=== PATIENT | female | born 1930 | race Caucasian/White ===

== ENCOUNTER → 2017-02-01 | Outpatient (CLI) | payer MEDICARE ==
--- NOTE | 2017-02-01 15:41 | MR ---
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 Fast brain protocol was utilized. FINDINGS: No evidence for acute infarction, hemorrhage, mass, mass effect, midline shift, herniation, effacemen t of basal cisterns, or extra-axial fluid collection. There is moderate generalized supratentorial volume loss. No hydrocephalus. T2/FLAIR weighted sequences show moderate patchy right white matter change in both cerebral hemispher es within the subcortical, deep white matter, and periventricular regions. Signal changes in extent t o the posterior right parieto-occipital junction possibly relating to encephalomalacia from prior ins ult. The fast brain protocol limits assessment of some of the intracranial flow voids, and particular, the infraglenoid ICAs. Midline structures demonstrate normal morphology. The craniocervical junction is normal. Mild mucosal thickening maxillary sinuses. Globes appear intact. IMPRESSION: 1. Moderate atrophy and moderate patchy changes of right white matter change. These changes are nonsp ecific but likely related to chronic small vessel ischemic disease. No acute intracranial abnormality seen. 2. Mild chronic maxillary sinus disease..
== END | disposition home or self-care (01) ==
LOC: RADMRIMAIN 14:32
PROVIDERS: ATTEND Psychiatry & Neurology Neurology
DX: G31.9 Degenerative disease of nervous system, unspecified (principal); R90.82 White matter disease, unspecified
CPT/HCPCS: 70551

== ENCOUNTER 2017-03-24 13:50 | Inpatient (IN) | payer MEDICARE ==
[2017-03-24] MEDS ORDERED: DIPHENOX-ATROP 2.5-0.025 MG 1 EACH TAB PO STA (15:05)
[2017-03-24] MEDS ORDERED: SODIUM CHLORIDE 0.9% 1,000 ML IV STA (15:05)
--- NOTE | 2017-03-24 15:11 | ED ---
General Adult HPI - General Chief complaint: Nausea/Vomiting/Diarrhea Stated complaint: Diarrhea Time Seen by Provider: 03/24/17 14:05 Source: patient, family, RN notes reviewed Mode of arrival: wheelchair Limitations: no limitations - History of Present Illness Initial comments: This is an 86-year-old female with past medical history significant for C. difficile 2 or 3. 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 Patient's caregiver states she started having a little bit of diarrhea last night and today she was having profuse diarrhea and generalized weakness. Patient's caregiver states that the smell the diarrhea swelling like when she had her C. diff in the past. Patient denies any abdominal pain. Patient denies any fever chills. Patient denies any other symptoms. She denies a headache she denies numbness weakness patient denies lightheadedness dizziness or near syncopal episode. Patient denies any chest pain difficulty breathing or shortness of breath. - Related Data Home Medications Medication Instructions Recorded Confirmed Ferrous Sulfate [Feosol] 325 mg PO BID 05/03/14 03/24/17 Cholecalciferol [Vitamin D3] 2,000 unit PO DAILY 05/04/14 03/24/17 Apixaban [Eliquis] 2.5 mg PO BID 03/21/15 03/24/17 Escitalopram [Lexapro] 10 mg PO DAILY 03/21/15 03/24/17 Metoprolol Tartrate 12.5 mg PO DAILY 03/21/15 03/24/17 Cranberry Fruit Extract [Cranberry] 200 mg PO DAILY 02/11/17 03/24/17 L.acidoph,Paracasei, B.lactis 1 cap PO DAILY 02/11/17 03/24/17 [Probiotic] Lisinopril [Prinivil] 20 mg PO BID 02/11/17 03/24/17 Previous Rx's Medication Instructions Recorded traZODone HCL [Desyrel] 100 mg PO HS #30 tab 03/25/15 Allergies Allergy/AdvReac Type Severity Reaction Status Date / Time codeine Allergy Unknown Verified 03/24/17 14:49 Review of Systems ROS Statement: Those systems with pertinent positive or pertinent negative responses have been documented in the HPI. ROS Other: All systems not noted in ROS Statement are negative. Past Medical History Past Medical History: Atrial Fibrillation, Dementia, Hypertension, Renal Disease Additional Past Medical History / Comment(s): Pt has had recurrent CDiff with fecal traansplant. IRON DEFICIENCY ANEMIA , nosebleeds, chronic renal failure, bilateral arm fractures, UTI-ECOLI(04-19-15) History of Any Multi-Drug Resistant Organisms: C-DIFF Date of last positivie culture/infection: 02/13/17 MDRO Source:: diarrhea Past Surgical History: No Surgical Hx Reported Additional Past Surgical History / Comment(s): previous nose surgery (skin graft from right thigh to nose r/t nosebleeds) Past Anesthesia/Blood Transfusion Reactions: No Reported Reaction Additional Past Anesthesia/Blood Transfusion Reaction / Comment(s): CLAUSTERPHOBIA Past Psychological History: No Psychological Hx Reported Smoking Status: Never smoker Past Alcohol Use History: None Reported Past Drug Use History: None Reported - Past Family History Son(s) History Unknown: Yes Family Medical History: Myocardial Infarction ([place]) Father Family Medical History: Myocardial Infarction ([place]) Additional Family Medical History / Comment(s): Father at age 96 yrs. Mother History Unknown: Yes Family Medical History: No Reported History Additional Family Medical History / Comment(s): Mother was healthy and when she was 71 yrs. old. General Exam - General Exam Comments Initial Comments: GENERAL: Patient is well-developed and well-nourished. Patient is nontoxic and well- hydrated and is in no acute distress. Patient seems very fatigued ENT: Neck is soft and supple. No significant lymphadenopathy is noted. Oropharynx is clear. Dry mucous membranes. Neck has full range of motion without eliciting any pain. EYES: The sclera were anicteric and conjunctiva were pink and moist. Extraocular movements were intact and pupils were equal round and reactive to light. Eyelids were unremarkable. PULMONARY: Unlabored respirations. Good breath sounds bilaterally. No audible rales rhonchi or wheezing was noted. CARDIOVASCULAR: There is a regular rate and rhythm without any murmurs gallops or rubs. ABDOMEN: Soft and nontender with normal bowel sounds. No palpable organomegaly was noted. There is no palpable pulsatile mass. SKIN: Skin is clear with no lesions or rashes and otherwise unremarkable. NEUROLOGIC: Patient is alert and oriented x3. Cranial nerves II through XII are grossly intact. Motor and sensory are also intact. Normal speech, volume and content. Symmetrical smile. MUSCULOSKELETAL: Normal extremities with adequate strength and full range of motion. No lower extremity swelling or edema. No calf tenderness. LYMPHATICS: No significant lymphadenopathy is noted PSYCHIATRIC: Normal psychiatric evaluation. Limitations: no limitations Course Vital Signs 03/24/17 14:04 Temperature 97.9 F Pulse Rate 77 Respiratory 16 Rate Blood Pressure 122/53 O2 Sat by Pulse 94 L Oximetry Medical Decision Making - Medical Decision Making Patient's stool came back C. diff positive I start the patient on vancomycin I admitted the patient. - Lab Data Lab Results 03/24/17 Range/Units 15:41 C. difficile (EIA) Intrp Positive A (Negative) Disposition Clinical Impression: Clostridium difficile infection Disposition: ADMITTED IP TO THIS HOSP Referrals: Manny Goldman MD [Primary Care Provider] - 1-2 days Time of Disposition: 16:39
[2017-03-24] MEDS ORDERED: SODIUM CHLORIDE 0.9% 1,000 ML IV ONE (16:42)
[2017-03-24 16:54] LABS: Anisocytosis Slight; Basophils # (A) 0.1 k/uL (0-0.2); Basophils % (A) 0 %; Eosinophils # (A) 0.1 k/uL (0-0.7); Eosinophils % (A) 1 %; HCT 34.2 % (34.0-46.0); HGB 10.2 gm/dL (11.4-16.0); Hypochromasia Marked; Lymphocytes # (A) 0.3 k/uL (1.0-4.8); Lymphocytes % (A) 2 %; MCH 27.5 pg (25.0-35.0); MCHC 29.8 g/dL (31.0-37.0); MCV 92.3 fL (80.0-100.0); Mean Platelet Volume 9.3; Monocytes # (A) 1.6 k/uL (0-1.0); Monocytes % (A) 9 %; Neutrophils # (A) 15.3 k/uL (1.3-7.7); Neutrophils % (A) 87 %; RDW 18.7 % (11.5-15.5); WBC 17.6 k/uL (3.8-10.6)
[2017-03-24 16:56] LABS: Platelet Count 166 k/uL (150-450)
[2017-03-24 17:29] LABS: Albumin 3.3 g/dL (3.5-5.0); Potassium 3.9 mmol/L (3.5-5.1); Total Bilirubin 0.4 mg/dL (0.2-1.3); Total Protein 6.4 g/dL (6.3-8.2)
[2017-03-24] MEDS ORDERED: CHERRY FLAVOR 60 ML BOTTLE PO PRN (17:46)
[2017-03-24] MEDS ORDERED: VANCOMYCIN ORAL SOLUTION 250 MG/5 ML BOTTLE PO SCH (18:00)
[2017-03-25] MEDS: ACETAMINOPHEN TAB 325 MG TAB PO PRN (00:21)
[2017-03-25] MEDS: LISINOPRIL 20 MG TAB PO SCH ×2 (09:48→21:14)
[2017-03-25] MEDS: METOPROLOL TARTRATE 12.5 MG TAB PO SCH (09:48)
[2017-03-25] MEDS: FERROUS SULFATE 325 MG TAB PO SCH ×2 (09:58→21:14)
[2017-03-25] MEDS: CHOLECALCIFEROL 1,000 UNIT TAB PO SCH (09:58)
[2017-03-25] MEDS: LACTOBACILLUS ACIDOPH & BULGAR 1 EACH PACKET PO SCH (09:58)
[2017-03-25] MEDS: APIXABAN 2.5 MG TABLET PO SCH ×2 (09:58→21:13)
[2017-03-25] MEDS: ESCITALOPRAM 10 MG TAB PO SCH (09:58)
--- NOTE | 2017-03-25 13:05 | P.HPIM ---
History of Present Illness H&P Date: 03/25/17 Elisa Li is an 86-year-old female with past medical history significant for C. difficile 2 or 3. 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 Patient's caregiver states she started having a little bit of diarrhea last night and today she was having profuse diarrhea and generalized weakness. Patient's caregiver states that the smell the diarrhea smelling like when she had her C. diff in the past. Patient denies any abdominal pain. Patient denies any fever chills. Patient denies any other symptoms. She denies a headache she denies numbness weakness patient denies lightheadedness dizziness or near syncopal episode. Patient denies any chest pain difficulty breathing or shortness of breath. White blood count was elevated at 17,000 Past Medical History Past Medical History: Atrial Fibrillation, Dementia, Hypertension, Renal Disease Additional Past Medical History / Comment(s): Pt has had recurrent CDiff with fecal traansplant. IRON DEFICIENCY ANEMIA , nosebleeds, chronic renal failure, bilateral arm fractures, UTI-ECOLI(04-19-15) History of Any Multi-Drug Resistant Organisms: C-DIFF Date of last positivie culture/infection: 02/13/17 MDRO Source:: diarrhea Past Surgical History: No Surgical Hx Reported Additional Past Surgical History / Comment(s): previous nose surgery (skin graft from right thigh to nose r/t nosebleeds) Past Anesthesia/Blood Transfusion Reactions: No Reported Reaction Additional Past Anesthesia/Blood Transfusion Reaction / Comment(s): CLAUSTERPHOBIA Past Psychological History: No Psychological Hx Reported Additional Psychological History / Comment(s): Pt's daughter lives with her. PT HAS DEMENTIA AND DAUGHTER STATES SHE GETS" SUNDOWNERS" AND CAN BECOME A BIT COMBATATIVE AT TIMES. Pt has shower chair, toilet riser and a walker. She has no home care services-declined. Smoking Status: Never smoker Past Alcohol Use History: None Reported Past Drug Use History: None Reported - Past Family History Son(s) History Unknown: Yes Family Medical History: Myocardial Infarction ([place]) Father Family Medical History: Myocardial Infarction ([place]) Additional Family Medical History / Comment(s): Father at age 96 yrs. Mother History Unknown: Yes Family Medical History: No Reported History Additional Family Medical History / Comment(s): Mother was healthy and when she was 71 yrs. old. Medications and Allergies Home Medications Medication Instructions Recorded Confirmed Type Ferrous Sulfate [Feosol] 325 mg PO BID 05/03/14 03/24/17 History Cholecalciferol [Vitamin D3] 2,000 unit PO DAILY 05/04/14 03/24/17 History Apixaban [Eliquis] 2.5 mg PO BID 03/21/15 03/24/17 History Escitalopram [Lexapro] 10 mg PO DAILY 03/21/15 03/24/17 History Metoprolol Tartrate 12.5 mg PO DAILY 03/21/15 03/24/17 History traZODone HCL [Desyrel] 100 mg PO HS #30 tab 03/25/15 03/24/17 Rx Cranberry Fruit Extract [Cranberry] 200 mg PO DAILY 02/11/17 03/24/17 History L.acidoph,Paracasei, B.lactis 1 cap PO DAILY 02/11/17 03/24/17 History [Probiotic] Lisinopril [Prinivil] 20 mg PO BID 02/11/17 03/24/17 History Allergies Allergy/AdvReac Type Severity Reaction Status Date / Time codeine Allergy Unknown Verified 03/24/17 14:49 Physical Exam Vitals: Vital Signs Temp Pulse Pulse Pulse Resp BP BP 03/25/17 07:00 98.7 F 68 16 03/25/17 03:56 03/25/17 03:10 99.8 F H 74 03/25/17 01:35 100.1 F H 70 03/24/17 23:00 100.1 F H 124 H 20 03/24/17 20:00 98.7 F 123 H 20 114/52 03/24/17 18:53 99.2 F 68 18 100/50 03/24/17 17:07 18 03/24/17 14:04 97.9 F 77 16 122/53 BP BP Pulse Ox 03/25/17 07:00 97/46 96 03/25/17 03:56 103/52 03/25/17 03:10 03/25/17 01:35 80/45 03/24/17 23:00 92/57 95 03/24/17 20:00 91 L 03/24/17 18:53 96 03/24/17 17:07 03/24/17 14:04 94 L Intake and Output 03/24/17 03/25/17 03/25/17 22:59 06:59 14:59 Intake Total 1000 0 Output Total 1 Balance 1000 -1 Intake: Amount of Fluid Infused ( 1000 ml) Oral 0 Output: Urine/Stool Mix 1 Other: Voiding Method Incontinent # Voids 1 # Bowel Movements 2 Weight 77.111 kg HEENT head normocephalic and atraumatic Neck is supple no JVD no goiter no lymphadenopathy Chest is clear to auscultation no crackles no wheezing Cardiac exam reveals regular heart sounds no gallops no murmurs Abdomen is soft nontender no organomegaly with normal bowel sounds Extremity exam reveals no edema no cyanosis or clubbing Neurological examination reveals no gross focal deficit patient is alert confused with baseline dementia Results CBC & Chem 7: 03/24/17 16:40 03/24/17 17:03 Labs: Abnormal Lab Results - Last 24 Hours (Table) 03/24/17 03/24/17 03/24/17 Range/Units 15:41 16:40 17:03 WBC 17.6 H (3.8-10.6) k/uL RBC 3.70 L (3.80-5.40) m/uL Hgb 10.2 L (11.4-16.0) gm/dL MCHC 29.8 L (31.0-37.0) g/dL RDW 18.7 H (11.5-15.5) % Neutrophils # 15.3 H (1.3-7.7) k/uL Lymphocytes # 0.3 L (1.0-4.8) k/uL Monocytes # 1.6 H (0-1.0) k/uL BUN 25 H (7-17) mg/dL Creatinine 1.63 H (0.52-1.04) mg/dL Glucose 107 H (74-99) mg/dL Albumin 3.3 L (3.5-5.0) g/dL Lipase 13 L (23-300) U/L C. difficile (EIA) Intrp Positive A (Negative) Microbiology - Last 24 Hours (Table) 03/24/17 15:41 Stool Culture - Preliminary Stool Thrombosis Risk Factor Assmnt - Choose All That Apply Any of the Below Risk Factors Present?: No Each Risk Factor Represents 3 Points: Age 75 years or older Thrombosis Risk Factor Assessment Total Risk Factor Score: 3 Thrombosis Risk Factor Assessment Level: Moderate Risk Assessment and Plan Plan: #1 Clostridium difficile colitis #2 dehydration with acute renal failure #3 underlying history of dementia #4 underlying history of chronic anemia due to diverticulosis #5 chronic atrial fibrillation #6 underlying history of hypertension At this time case was discussed was family in details, relief docking master at [facility] contacted Will start treatment with oral vancomycin 4 times daily for 2 weeks and then taper down vancomycin Infectious disease consultation has been requested
[2017-03-25 17:41] LABS: Amorphous Sediment,Urine Rare /hpf; Appearance,Urine Cloudy (Clear); Bacteria,Urine Many /hpf; Bilirubin,Urine Negative (Negative); Blood,Urine Small (Negative); Color,Urine Yellow; Glucose,Urine (UA) Negative (Negative); Hyaline Casts,Urine 44 /lpf (0-2); Ketones,Urine Negative (Negative); Leukocyte Esterase,Urine Moderate (Negative); Mucus,Urine Occasional /hpf; Nitrite,Urine Positive (Negative); Protein,Urine 1+ (Negative); RBC,Urine 9 /hpf (0-5); Specific Gravity,Urine 1.015 (1.001-1.035); Squamous Epithelial Cell,Urine 4 /hpf (0-4); Urobilinogen,Urine <2.0 mg/dL (<2.0); WBC,Urine 14 /hpf (0-5)
--- NOTE | 2017-03-25 19:44 | P.CONS ---
History of Present Illness - Reason for Consult Consult date: 03/25/17 - Chief Complaint diarrhea - History of Present Illness 86-year-old female patient of Dr. Goldman, is known to Dr. Moss to hospital with recurrence of diarrhea. Review of the data reveals that this pleasant but demented woman has had ongoing difficulties with diarrhea over this past year. It appears that she's had fecal transplantation performed in 2 events [facility].she is cared for by her children in their homes. Apparently she started developed profuse amount of diarrhea and became quite weak. Because the stool smell like C. diff she was brought to hospitaland testing did reveal evidence of ongoing evidence of C. diff. Because she was symptomatic she was admitted and has received fluids. Because of the concerns of ongoing infection the ID evaluation was requested. The patient is very pleasant but demented.14 since coming to Hospital to profuse nature of her diarrhea starting to improve. She is feeling slightly better. It is noted she does have significant leukocytosis but is not having high-grade fevers, chills or rigors. Patient does not relate any other symptoms at this time. Review of Systems ROS unobtainable: due to mental status Past Medical History Past Medical History: Atrial Fibrillation, Dementia, Hypertension, Renal Disease Additional Past Medical History / Comment(s): Pt has had recurrent CDiff with fecal traansplant. IRON DEFICIENCY ANEMIA , nosebleeds, chronic renal failure, bilateral arm fractures, UTI-ECOLI(04-19-15) History of Any Multi-Drug Resistant Organisms: C-DIFF Year Discovered:: 02/13/17 MDRO Source:: diarrhea Past Surgical History: No Surgical Hx Reported Additional Past Surgical History / Comment(s): previous nose surgery (skin graft from right thigh to nose r/t nosebleeds) Past Anesthesia/Blood Transfusion Reactions: No Reported Reaction Additional Past Anesthesia/Blood Transfusion Reaction / Comm: CLAUSTERPHOBIA Past Psychological History: No Psychological Hx Reported Additional Psychological History / Comment(s): Pt's daughter lives with her. PT HAS DEMENTIA AND DAUGHTER STATES SHE GETS" SUNDOWNERS" AND CAN BECOME A BIT COMBATATIVE AT TIMES. Pt has shower chair, toilet riser and a walker. She has no home care services-declined. Smoking Status: Never smoker Past Alcohol Use History: None Reported Past Drug Use History: None Reported - Past Family History Son(s) History Unknown: Yes Family Medical History: Myocardial Infarction (ND) Father Family Medical History: Myocardial Infarction (ND) Additional Family Medical History / Comment(s): Father at age 96 yrs. Mother History Unknown: Yes Family Medical History: No Reported History Additional Family Medical History / Comment(s): Mother was healthy and when she was 71 yrs. old. Medications and Allergies Home Medications and Allergies Comment(s): Current Medications Acetaminophen (Tylenol Tab) 650 mg PO Q6HR PRN PRN Reason: Fever and/ or Pain 1-5 Last Admin: 03/25/17 00:21 Dose: 650 mg Apixaban (Eliquis) 2.5 mg PO BID [facility] Last Admin: 03/25/17 09:58 Dose: 2.5 mg Hinson Syrup (Hinson Syrup) 5 ml PO Q6H PRN PRN Reason: FLAVORING Cholecalciferol (Vitamin D3) 2,000 unit PO DAILY [facility] Last Admin: 03/25/17 09:58 Dose: 2,000 unit Cholestyramine Resin (Questran) 4 gm PO BID@1000,1800 [facility] Escitalopram Oxalate (Lexapro) 10 mg PO DAILY [facility] Last Admin: 03/25/17 09:58 Dose: 10 mg Ferrous Sulfate (Feosol) 325 mg PO BID [facility] Last Admin: 03/25/17 09:58 Dose: 325 mg Lactobacillus Acidoph/Bulgaricus (Lactinex) 1 each PO DAILY [facility] Last Admin: 03/25/17 09:58 Dose: 1 each Lisinopril (Zestril) 20 mg PO BID [facility] Last Admin: 03/25/17 09:48 Dose: Not Given Metoprolol Tartrate (Lopressor) 12.5 mg PO DAILY [facility] Last Admin: 03/25/17 09:48 Dose: Not Given Trazodone HCl (Desyrel) 100 mg PO [facility] Home Medications Medication Instructions Recorded Confirmed Type Ferrous Sulfate [Feosol] 325 mg PO BID 05/03/14 03/24/17 History Cholecalciferol [Vitamin D3] 2,000 unit PO DAILY 05/04/14 03/24/17 History Apixaban [Eliquis] 2.5 mg PO BID 03/21/15 03/24/17 History Escitalopram [Lexapro] 10 mg PO DAILY 03/21/15 03/24/17 History Metoprolol Tartrate 12.5 mg PO DAILY 03/21/15 03/24/17 History traZODone HCL [Desyrel] 100 mg PO HS #30 tab 03/25/15 03/24/17 Rx Cranberry Fruit Extract [Cranberry] 200 mg PO DAILY 02/11/17 03/24/17 History L.acidoph,Paracasei, B.lactis 1 cap PO DAILY 02/11/17 03/24/17 History [Probiotic] Lisinopril [Prinivil] 20 mg PO BID 02/11/17 03/24/17 History Allergies Allergy/AdvReac Type Severity Reaction Status Date / Time codeine Allergy Unknown Verified 03/24/17 14:49 Physical Exam Vitals: Vital Signs Temp Pulse Pulse Resp BP BP BP 03/25/17 15:00 97.4 F L 65 16 110/51 03/25/17 07:00 98.7 F 68 16 97/46 03/25/17 03:56 103/52 03/25/17 03:10 99.8 F H 74 03/25/17 01:35 100.1 F H 70 80/45 03/24/17 23:00 100.1 F H 124 H 20 92/57 03/24/17 20:00 98.7 F 123 H 20 114/52 Pulse Ox 03/25/17 15:00 94 L 03/25/17 07:00 96 03/25/17 03:56 03/25/17 03:10 03/25/17 01:35 03/24/17 23:00 95 03/24/17 20:00 91 L Intake and Output 03/25/17 03/25/17 03/25/17 06:59 14:59 22:59 Intake Total 0 Output Total 1 Balance -1 Intake: Oral 0 Output: Urine/Stool Mix 1 Other: Voiding Method Incontinent Incontinent Incontinent # Voids 1 1 # Bowel Movements 3 1 Weight 77.111 kg Patient Weight 03/26/17 06:59 Weight 77.111 kg 86-year-old female pleasantly demented and is comfortable at this time. HEENT: Anicteric conjunctiva are pink and moist nasal mucosa grossly intact without significant lesions, there is no thrush. Neck: The neck is supple without significant lymphadenopathy or thyromegaly. Lungs: Good bilateral air entry without significant crackles or wheezing. There is no significant bronchial sounds. There is no egophony or dullness. Heart: Regular rate and rhythm with an audible S1-S2, no S3 no S4. There is no significant murmur click or rub, PMI was nondisplaced. Abdomen: Positive bowel sounds soft and has minimal bilateral lower quadrant tenderness without palpable masses or organomegaly. There was no guarding or rebound. Extremities: The upper extremities have excellent pulses they are symmetric, no significant petechiae or telangiectasia. No splinter hemorrhages were noted. The lower extremities are free from significant edema. The peripheral pulses were 2+ and symmetric. Neuro:awake and alert and able to follow simple commands, is not in distress Results CBC & Chem 7: 03/24/17 16:40 03/24/17 17:03 Labs: Abnormal Lab Results - Last 24 Hours (Table) 03/24/17 Range/Units 17:24 Urine Appearance Cloudy H (Clear) Urine Protein 1+ H (Negative) Urine Blood Small H (Negative) Urine Nitrite Positive H (Negative) Ur Leukocyte Esterase Moderate H (Negative) Urine RBC 9 H (0-5) /hpf Urine WBC 14 H (0-5) /hpf Amorphous Sediment Rare H (None) /hpf Urine Bacteria Many H (None) /hpf Hyaline Casts 44 H (0-2) /lpf Urine Mucus Occasional H (None) /hpf Microbiology - Last 24 Hours (Table) 03/24/17 15:41 Stool Culture - Preliminary Stool Laboratory Results WBC 17.6 k/uL (3.8-10.6) H 03/24/17 16:40 RBC 3.70 m/uL (3.80-5.40) L 03/24/17 16:40 Hgb 10.2 gm/dL (11.4-16.0) L 03/24/17 16:40 Hct 34.2 % (34.0-46.0) 03/24/17 16:40 MCV 92.3 fL (80.0-100.0) 03/24/17 16:40 MCH 27.5 pg (25.0-35.0) 03/24/17 16:40 MCHC 29.8 g/dL (31.0-37.0) L 03/24/17 16:40 RDW 18.7 % (11.5-15.5) H 03/24/17 16:40 Plt Count 166 k/uL (150-450) D 03/24/17 16:40 Neutrophils % 87 % 03/24/17 16:40 Lymphocytes % 2 % 03/24/17 16:40 Monocytes % 9 % 03/24/17 16:40 Eosinophils % 1 % 03/24/17 16:40 Basophils % 0 % 03/24/17 16:40 Neutrophils # 15.3 k/uL (1.3-7.7) H 03/24/17 16:40 Lymphocytes # 0.3 k/uL (1.0-4.8) L 03/24/17 16:40 Monocytes # 1.6 k/uL (0-1.0) H 03/24/17 16:40 Eosinophils # 0.1 k/uL (0-0.7) 03/24/17 16:40 Basophils # 0.1 k/uL (0-0.2) 03/24/17 16:40 Hypochromasia Marked 03/24/17 16:40 Anisocytosis Slight 03/24/17 16:40 Sodium 139 mmol/L (137-145) 03/24/17 17:03 Potassium 3.9 mmol/L (3.5-5.1) 03/24/17 17:03 Chloride 106 mmol/L (98-107) 03/24/17 17:03 Carbon Dioxide 24 mmol/L (22-30) 03/24/17 17:03 Anion Gap 9 mmol/L 03/24/17 17:03 BUN 25 mg/dL (7-17) H 03/24/17 17:03 Creatinine 1.63 mg/dL (0.52-1.04) H 03/24/17 17:03 Est GFR (MDRD) Af Amer 36 (>60 ml/min/1.73 sqM) 03/24/17 17:03 Est GFR (MDRD) Non-Af 30 (>60 ml/min/1.73 sqM) 03/24/17 17:03 Glucose 107 mg/dL (74-99) H 03/24/17 17:03 Plasma Lactic Acid Agustin 0.9 mmol/L (0.7-2.0) 03/25/17 01:20 Calcium 9.0 mg/dL (8.4-10.2) 03/24/17 17:03 Total Bilirubin 0.4 mg/dL (0.2-1.3) 03/24/17 17:03 AST 24 U/L (14-36) 03/24/17 17:03 ALT 30 U/L (9-52) 03/24/17 17:03 Alkaline Phosphatase 83 U/L (38-126) 03/24/17 17:03 Total Protein 6.4 g/dL (6.3-8.2) 03/24/17 17:03 Albumin 3.3 g/dL (3.5-5.0) L 03/24/17 17:03 Amylase 40 U/L (30-110) 03/24/17 17:03 Lipase 13 U/L (23-300) L 03/24/17 17:03 Urine Color Yellow 03/24/17 17:24 Urine Appearance Cloudy (Clear) H 03/24/17 17:24 Urine pH 5.0 (5.0-8.0) 03/24/17 17:24 Ur Specific [place] 1.015 (1.001-1.035) 03/24/17 17:24 Urine Protein 1+ (Negative) H 03/24/17 17:24 Urine Glucose (UA) Negative (Negative) 03/24/17 17:24 Urine Ketones Negative (Negative) 03/24/17 17:24 Urine Blood Small (Negative) H 03/24/17 17:24 Urine Nitrite Positive (Negative) H 03/24/17 17:24 Urine Bilirubin Negative (Negative) 03/24/17 17:24 Urine Urobilinogen <2.0 mg/dL (<2.0) 03/24/17 17:24 Ur Leukocyte Esterase Moderate (Negative) H 03/24/17 17:24 Urine RBC 9 /hpf (0-5) H 03/24/17 17:24 Urine WBC 14 /hpf (0-5) H 03/24/17 17:24 Ur Squamous Epith Cells 4 /hpf (0-4) 03/24/17 17:24 Amorphous Sediment Rare /hpf (None) H 03/24/17 17:24 Urine Bacteria Many /hpf (None) H 03/24/17 17:24 Hyaline Casts 44 /lpf (0-2) H 03/24/17 17:24 Urine Mucus Occasional /hpf (None) H 03/24/17 17:24 C. difficile (EIA) Intrp Positive (Negative) A 03/24/17 15:41 Microbiology 03/24/17 15:41 Stool Stool Culture - Preliminary Assessment and Plan (1) Clostridium difficile infection Narrative/Plan: 86-year-old female who has a history of dementia is developed recurrence of C. diff colitis. At home was having profound amounts of diarrhea resulting in weakness, dehydration and leukocytosis. Feeling somewhat better today. The nursing staff are relating to one loose stool only so far today. There is significant concerns from the family about ongoing treatment of her disease state. At this time since she's had fecal transplantation with attempts to monitor her off of any type of antibiotic therapy to see with supportive care if she cannot have improvement. Probiotic therapy is given no and also adding cholestyramine since this is a toxin binder and may help also improve the volume of her stool. [place] stool volume reduce his dehydration and improve his functional status. Her abdomen is soft without much tenderness does not have an acute abdomen. She does not have raheem sepsis at this time.leukocytosis is due to the acute illness and should be monitored and would expect it to rapidly improve.if there is any further abdominal discomforts a plain film of the abdomen will be helpful it is the goal at this time would be the avoidance of antibiotic therapy of any type, with supportive care she may be able to recover from the flare of C. diff. Current Visit: Yes Status: Acute Code(s): B96.89 - OTH BACTERIAL AGENTS THE CAUSE [facility]EASES [facility] SNOMED Code(s): 513542707 (2) Dementia Current Visit: Yes Status: Acute Code(s): F03.90 - UNSPECIFIED DEMENTIA WITHOUT BEHAVIORAL DISTURBANCE SNOMED Code(s): 76568675 (3) Leukocytosis Current Visit: Yes Status: Acute Code(s): D72.829 - ELEVATED WHITE BLOOD CELL COUNT, UNSPECIFIED SNOMED Code(s): 941303762
[2017-03-25] MEDS: CHOLESTYRAMINE (WITH SUGAR) 4 GM PACKET PO SCH (21:13)
[2017-03-25] MEDS: traZODone HCL 100 MG TAB PO SCH (21:14)
[2017-03-26 07:49] LABS: Anisocytosis Slight; Basophils % (A) 0 %; Eosinophils # (A) 0.1 k/uL (0-0.7); Eosinophils % (A) 2 %; HCT 28.1 % (34.0-46.0); Hypochromasia Marked; Lymphocytes # (A) 0.4 k/uL (1.0-4.8); Lymphocytes % (A) 5 %; MCH 27.3 pg (25.0-35.0); MCHC 29.4 g/dL (31.0-37.0); Mean Platelet Volume 7.3; Monocytes # (A) 0.8 k/uL (0-1.0); Monocytes % (A) 11 %; Neutrophils # (A) 5.7 k/uL (1.3-7.7); Neutrophils % (A) 78 %; Platelet Count 217 k/uL (150-450); RBC 3.02 m/uL (3.80-5.40); RDW 16.3 % (11.5-15.5); WBC 7.3 k/uL (3.8-10.6)
[2017-03-26 07:56] LABS: HGB 8.3 gm/dL (11.4-16.0)
[2017-03-26 07:58] LABS: ALT 33 U/L (9-52); AST 23 U/L (14-36); Albumin 2.4 g/dL (3.5-5.0); Alkaline Phosphatase 69 U/L (38-126); Anion Gap 8 mmol/L; Blood Urea Nitrogen 33 mg/dL (7-17); Calcium 8.1 mg/dL (8.4-10.2); Carbon Dioxide 22 mmol/L (22-30); Chloride 110 mmol/L (98-107); Glucose 96 mg/dL (74-99); Sodium 140 mmol/L (137-145); Total Bilirubin <0.1 mg/dL (0.2-1.3); Total Protein 4.8 g/dL (6.3-8.2)
[2017-03-26 08:04] LABS: Potassium 2.8 mmol/L (3.5-5.1)
[2017-03-26] MEDS: ESCITALOPRAM 10 MG TAB PO SCH (08:17)
[2017-03-26] MEDS: APIXABAN 2.5 MG TABLET PO SCH ×2 (08:17→19:27)
[2017-03-26] MEDS: METOPROLOL TARTRATE 12.5 MG TAB PO SCH (08:17)
[2017-03-26] MEDS: FERROUS SULFATE 325 MG TAB PO SCH ×2 (08:17→19:27)
[2017-03-26] MEDS: LISINOPRIL 20 MG TAB PO SCH ×2 (08:17→19:27)
[2017-03-26] MEDS: LACTOBACILLUS ACIDOPH & BULGAR 1 EACH PACKET PO SCH (08:17)
[2017-03-26] MEDS: CHOLECALCIFEROL 1,000 UNIT TAB PO SCH (08:17)
[2017-03-26] MEDS ORDERED: Potassium Replacement Protocol 1 EACH MISC MISCELLANE PRN (10:33)
[2017-03-26] MEDS: CHOLESTYRAMINE (WITH SUGAR) 4 GM PACKET PO SCH ×2 (10:46→18:41)
[2017-03-26] MEDS: POTASSIUM CHLORIDE ER 20 MEQ TAB.ER PO SCH ×3 (11:30→13:07)
--- NOTE | 2017-03-26 14:55 | P.PN ---
Subjective Progress Note Date: 03/26/17 Elisa Li is an 86-year-old female with past medical history significant for C. difficile 2 or 3. 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 Patient's caregiver states she started having a little bit of diarrhea last night and today she was having profuse diarrhea and generalized weakness. Patient's caregiver states that the smell the diarrhea smelling like when she had her C. diff in the past. Patient denies any abdominal pain. Patient denies any fever chills. Patient denies any other symptoms. She denies a headache she denies numbness weakness patient denies lightheadedness dizziness or near syncopal episode. Patient denies any chest pain difficulty breathing or shortness of breath. White blood count was elevated at 17,000 on admission. On 03/26/2017 patient is feeling better she has mild abdominal discomfort she had 2 episodes of diarrhea today but stool is starting to get formed, white blood count is significantly down to 8000 patient is not receiving any antibiotics she was evaluated by Dr. Beck and his input was reviewed. Objective - Vital Signs Vital signs: Vital Signs Temp 97.0 F L 03/26/17 07:00 Pulse 64 03/26/17 07:00 Resp 16 03/26/17 07:00 BP 105/52 03/26/17 07:00 Pulse Ox 96 03/26/17 07:00 Intake & Output 03/25/17 03/26/17 03/26/17 18:59 06:59 18:59 Intake Total 300 Output Total 3 Balance 297 Weight 77.111 kg 77.111 kg Intake: Oral 300 Output: Urine/Stool Mix 3 Other: Voiding Method Incontinent Incontinent Incontinent # Voids 1 3 1 # Bowel Movements 1 2 1 - Exam HEENT head normocephalic and atraumatic Neck is supple no JVD no goiter no lymphadenopathy Chest is clear to auscultation no crackles no wheezing Cardiac exam reveals regular heart sounds no gallops no murmurs Abdomen is soft nontender no organomegaly with normal bowel sounds Extremity exam reveals no edema no cyanosis or clubbing Neurological examination reveals no gross focal deficit patient is alert confused with baseline dementia - Labs CBC & Chem 7: 03/26/17 07:14 03/26/17 07:14 Labs: Abnormal Lab Results - Last 24 Hours (Table) 03/24/17 03/26/1703/26/17 Range/Units 17:24 07:14 07:14 RBC 3.02 L (3.80-5.40) m/uL Hgb 8.3 L D (11.4-16.0) gm/dL Hct 28.1 L (34.0-46.0) % MCHC 29.4 L (31.0-37.0) g/dL RDW 16.3 H (11.5-15.5) % Lymphocytes # 0.4 L (1.0-4.8) k/uL Potassium 2.8 L* (3.5-5.1) mmol/L Chloride 110 H (98-107) mmol/L BUN 33 H (7-17) mg/dL Creatinine 1.60 H (0.52-1.04) mg/dL Calcium 8.1 L (8.4-10.2) mg/dL Total Bilirubin <0.1 L (0.2-1.3) mg/dL Total Protein 4.8 L (6.3-8.2) g/dL Albumin 2.4 L (3.5-5.0) g/dL Urine Appearance Cloudy H (Clear) Urine Protein 1+ H (Negative) Urine Blood Small H (Negative) Urine Nitrite Positive H (Negative) Ur Leukocyte Esterase Moderate H (Negative) Urine RBC 9 H (0-5) /hpf Urine WBC 14 H (0-5) /hpf Amorphous Sediment Rare H (None) /hpf Urine Bacteria Many H (None) /hpf Hyaline Casts 44 H (0-2) /lpf Urine Mucus Occasional H (None) /hpf Microbiology - Last 24 Hours (Table) 03/25/17 01:29 Blood Culture - Preliminary Blood No Growth after 24 hours 03/25/17 01:20 Blood Culture - Preliminary Blood No Growth after 24 hours Assessment and Plan Plan: #1 Clostridium difficile colitis #2 dehydration with acute renal failure #3 underlying history of dementia #4 underlying history of chronic anemia due to diverticulosis #5 chronic atrial fibrillation #6 underlying history of hypertension #7 hypokalemia correcting At this time case was discussed was family in details, sales operations director at [facility] contacted Infectious disease consultation has been requested, recommendation from Dr. Beck was to avoid antibiotics and treated symptomatically No vancomycin was started patient is improving will monitor closely
[2017-03-26] MEDS ORDERED: LOPERAMIDE 2 MG CAP PO ONE (15:02)
[2017-03-26] MEDS: traZODone HCL 100 MG TAB PO SCH (19:27)
--- NOTE | 2017-03-26 22:05 | P.PN ---
Subjective Progress Note Date: 03/26/17 Principal diagnosis: Diarrhea and dehydration 86-year-old female patient of Dr. Goldman, is known to Dr. Moss to hospital with recurrence of diarrhea. Review of the data reveals that this pleasant but demented woman has had ongoing difficulties with diarrhea over this past year. It appears that she's had fecal transplantation performed in 2 events [facility].she is cared for by her children in their homes. Apparently she started developed profuse amount of diarrhea and became quite weak. Because the stool smell like C. diff she was brought to hospitaland testing did reveal evidence of ongoing evidence of C. diff. Because she was symptomatic she was admitted and has received fluids. Because of the concerns of ongoing infection the ID evaluation was requested. The patient is very pleasant but demented.14 since coming to Hospital to profuse nature of her diarrhea starting to improve. She is feeling slightly better. It is noted she does have significant leukocytosis but is not having high- grade fevers, chills or rigors. Patient does not relate any other symptoms at this time. The case is discussed with her son and [id number]. Objective - Vital Signs Vital signs: Vital Signs Temp 97.4 F L 03/26/17 15:00 Pulse 61 03/26/17 15:00 Resp 16 03/26/17 15:00 BP 113/56 03/26/17 15:00 Pulse Ox 97 03/26/17 15:00 Intake & Output 03/26/17 03/26/17 03/27/17 06:59 18:59 06:59 Intake Total 300 Output Total 3 Balance 297 Weight 77.111 kg Intake: Oral 300 Output: Urine/Stool Mix 3 Other: Voiding Method Incontinent Incontinent # Voids 3 1 # Bowel Movements 2 1 - Exam 86-year-old female pleasantly demented and is comfortable at this time. HEENT: Anicteric conjunctiva are pink and moist nasal mucosa grossly intact without significant lesions, there is no thrush. Neck: The neck is supple without significant lymphadenopathy or thyromegaly. Lungs: Good bilateral air entry without significant crackles or wheezing. There is no significant bronchial sounds. There is no egophony or dullness. Heart: Regular rate and rhythm with an audible S1-S2, no S3 no S4. There is no significant murmur click or rub, PMI was nondisplaced. Abdomen: Positive bowel sounds soft and has minimal bilateral lower quadrant tenderness without palpable masses or organomegaly. There was no guarding or rebound. Extremities: The upper extremities have excellent pulses they are symmetric, no significant petechiae or telangiectasia. No splinter hemorrhages were noted. The lower extremities are free from significant edema. The peripheral pulses were 2+ and symmetric. Neuro:awake and alert and able to follow simple commands, is not in distress - Labs CBC & Chem 7: 03/26/17 07:14 03/26/17 07:14 Labs: Abnormal Lab Results - Last 24 Hours (Table) 03/26/17 03/26/17 Range/Units 07:14 07:14 RBC 3.02 L (3.80-5.40) m/uL Hgb 8.3 L D (11.4-16.0) gm/dL Hct 28.1 L (34.0-46.0) % MCHC 29.4 L (31.0-37.0) g/dL RDW 16.3 H (11.5-15.5) % Lymphocytes # 0.4 L (1.0-4.8) k/uL Potassium 2.8 L* (3.5-5.1) mmol/L Chloride 110 H (98-107) mmol/L BUN 33 H (7-17) mg/dL Creatinine 1.60 H (0.52-1.04) mg/dL Calcium 8.1 L (8.4-10.2) mg/dL Total Bilirubin <0.1 L (0.2-1.3) mg/dL Total Protein 4.8 L (6.3-8.2) g/dL Albumin 2.4 L (3.5-5.0) g/dL Microbiology - Last 24 Hours (Table) 03/24/17 15:41 Stool Culture - Preliminary Stool 03/25/17 01:29 Blood Culture - Preliminary Blood No Growth after 24 hours 03/25/17 01:20 Blood Culture - Preliminary Blood No Growth after 24 hours Laboratory Results WBC 7.3 k/uL (3.8-10.6) 03/26/17 07:14 RBC 3.02 m/uL (3.80-5.40) L 03/26/17 07:14 Hgb 8.3 gm/dL (11.4-16.0) L D 03/26/17 07:14 Hct 28.1 % (34.0-46.0) L 03/26/17 07:14 MCV 93.0 fL (80.0-100.0) 03/26/17 07:14 MCH 27.3 pg (25.0-35.0) 03/26/17 07:14 MCHC 29.4 g/dL (31.0-37.0) L 03/26/17 07:14 RDW 16.3 % (11.5-15.5) H 03/26/17 07:14 Plt Count 217 k/uL (150-450) 03/26/17 07:14 Neutrophils % 78 % 03/26/17 07:14 Lymphocytes % 5 % 03/26/17 07:14 Monocytes % 11 % 03/26/17 07:14 Eosinophils % 2 % 03/26/17 07:14 Basophils % 0 % 03/26/17 07:14 Neutrophils # 5.7 k/uL (1.3-7.7) 03/26/17 07:14 Lymphocytes # 0.4 k/uL (1.0-4.8) L 03/26/17 07:14 Monocytes # 0.8 k/uL (0-1.0) 03/26/17 07:14 Eosinophils # 0.1 k/uL (0-0.7) 03/26/17 07:14 Basophils # 0.0 k/uL (0-0.2) 03/26/17 07:14 Hypochromasia Marked 03/26/17 07:14 Anisocytosis Slight 03/26/17 07:14 Sodium 140 mmol/L (137-145) 03/26/17 07:14 Potassium 2.8 mmol/L (3.5-5.1) L* 03/26/17 07:14 Chloride 110 mmol/L (98-107) H 03/26/17 07:14 Carbon Dioxide 22 mmol/L (22-30) 03/26/17 07:14 Anion Gap 8 mmol/L 03/26/17 07:14 BUN 33 mg/dL (7-17) H 03/26/17 07:14 Creatinine 1.60 mg/dL (0.52-1.04) H 03/26/17 07:14 Est GFR (MDRD) Af Amer 37 (>60 ml/min/1.73 sqM) 03/26/17 07:14 Est GFR (MDRD) Non-Af 30 (>60 ml/min/1.73 sqM) 03/26/17 07:14 Glucose 96 mg/dL (74-99) 03/26/17 07:14 Plasma Lactic Acid Agustin 0.9 mmol/L (0.7-2.0) 03/25/17 01:20 Calcium 8.1 mg/dL (8.4-10.2) L 03/26/17 07:14 Magnesium 2.1 mg/dL (1.6-2.3) 03/26/17 07:14 Total Bilirubin <0.1 mg/dL (0.2-1.3) L 03/26/17 07:14 AST 23 U/L (14-36) 03/26/17 07:14 ALT 33 U/L (9-52) 03/26/17 07:14 Alkaline Phosphatase 69 U/L (38-126) 03/26/17 07:14 Total Protein 4.8 g/dL (6.3-8.2) L 03/26/17 07:14 Albumin 2.4 g/dL (3.5-5.0) L 03/26/17 07:14 Amylase 40 U/L (30-110) 03/24/17 17:03 Lipase 13 U/L (23-300) L 03/24/17 17:03 Urine Color Yellow 03/24/17 17:24 Urine Appearance Cloudy (Clear) H 03/24/17 17:24 Urine pH 5.0 (5.0-8.0) 03/24/17 17:24 Ur Specific Clarkson 1.015 (1.001-1.035) 03/24/17 17:24 Urine Protein 1+ (Negative) H 03/24/17 17:24 Urine Glucose (UA) Negative (Negative) 03/24/17 17:24 Urine Ketones Negative (Negative) 03/24/17 17:24 Urine Blood Small (Negative) H 03/24/17 17:24 Urine Nitrite Positive (Negative) H 03/24/17 17:24 Urine Bilirubin Negative (Negative) 03/24/17 17:24 Urine Urobilinogen <2.0 mg/dL (<2.0) 03/24/17 17:24 Ur Leukocyte Esterase Moderate (Negative) H 03/24/17 17:24 Urine RBC 9 /hpf (0-5) H 03/24/17 17:24 Urine WBC 14 /hpf (0-5) H 03/24/17 17:24 Ur Squamous Epith Cells 4 /hpf (0-4) 03/24/17 17:24 Amorphous Sediment Rare /hpf (None) H 03/24/17 17:24 Urine Bacteria Many /hpf (None) H 03/24/17 17:24 Hyaline Casts 44 /lpf (0-2) H 03/24/17 17:24 Urine Mucus Occasional /hpf (None) H 03/24/17 17:24 C. difficile (EIA) Intrp Positive (Negative) A 03/24/17 15:41 Microbiology 03/24/17 15:41 Stool Stool Culture - Preliminary 03/25/17 01:29 Blood Blood Culture - Preliminary No Growth after 24 hours 03/25/17 01:20 Blood Blood Culture - Preliminary No Growth after 24 hours Assessment and Plan (1) Clostridium difficile infection Narrative/Plan: 86-year-old female who has a history of dementia is developed recurrence of C. diff colitis. At home was having profound amounts of diarrhea resulting in weakness, dehydration and leukocytosis. Feeling somewhat better today. The nursing staff are relating to one loose stool only so far today. There is significant concerns from the family about ongoing treatment of her disease state. At this time since she's had fecal transplantation with attempts to monitor her off of any type of antibiotic therapy to see with supportive care if she cannot have improvement. Probiotic therapy is given no and also adding cholestyramine since this is a toxin binder and may help also improve the volume of her stool. Ridges stool volume reduce his dehydration and improve his functional status. Her abdomen is soft without much tenderness does not have an acute abdomen. She does not have raheem sepsis at this time.leukocytosis is due to the acute illness and should be monitored and would expect it to rapidly improve.if there is any further abdominal discomforts a plain film of the abdomen will be helpful it is the goal at this time would be the avoidance of antibiotic therapy of any type, with supportive care she may be able to recover from the flare of C. diff. Continue with probiotic therapy, cholestyramine, and a dose of Imodium to lower the volume of stool can help with her dehydration and hypokalemia. Potassium be rechecked in the morning. Current Visit: Yes Status: Acute Code(s): B96.89 - OTH BACTERIAL AGENTS THE CAUSE OF DISEASES [facility] SNOMED Code(s): 197676925 (2) Dementia Current Visit: Yes Status: Acute Code(s): F03.90 - UNSPECIFIED DEMENTIA WITHOUT BEHAVIORAL DISTURBANCE SNOMED Code(s): 98362007 (3) Leukocytosis Current Visit: Yes Status: Acute Code(s): D72.829 - ELEVATED WHITE BLOOD CELL COUNT, UNSPECIFIED SNOMED Code(s): 745146055
[2017-03-27 07:21] LABS: Anisocytosis Slight; Basophils % (A) 0 %; Eosinophils # (A) 0.1 k/uL (0-0.7); Eosinophils % (A) 2 %; HCT 29.3 % (34.0-46.0); HGB 8.9 gm/dL (11.4-16.0); Hypochromasia Marked; Lymphocytes # (A) 0.3 k/uL (1.0-4.8); Lymphocytes % (A) 4 %; MCH 27.2 pg (25.0-35.0); MCHC 30.4 g/dL (31.0-37.0); MCV 89.4 fL (80.0-100.0); Mean Platelet Volume 7.8; Monocytes % (A) 13 %; Neutrophils # (A) 5.9 k/uL (1.3-7.7); Neutrophils % (A) 79 %; Platelet Count 210 k/uL (150-450); RBC 3.28 m/uL (3.80-5.40); RDW 17.4 % (11.5-15.5); WBC 7.5 k/uL (3.8-10.6)
[2017-03-27] MEDS: FERROUS SULFATE 325 MG TAB PO SCH ×2 (07:55→20:54)
[2017-03-27] MEDS: CHOLECALCIFEROL 1,000 UNIT TAB PO SCH (07:55)
[2017-03-27] MEDS: METOPROLOL TARTRATE 12.5 MG TAB PO SCH (07:55)
[2017-03-27] MEDS: APIXABAN 2.5 MG TABLET PO SCH ×2 (07:55→20:54)
[2017-03-27] MEDS: LISINOPRIL 20 MG TAB PO SCH ×2 (07:55→20:54)
[2017-03-27] MEDS: ESCITALOPRAM 10 MG TAB PO SCH (07:55)
[2017-03-27] MEDS: LACTOBACILLUS ACIDOPH & BULGAR 1 EACH PACKET PO SCH (07:55)
[2017-03-27] MEDS: CHOLESTYRAMINE (WITH SUGAR) 4 GM PACKET PO SCH ×2 (07:56→17:29)
[2017-03-27 08:03] LABS: ALT 30 U/L (9-52); AST 21 U/L (14-36); Albumin 2.7 g/dL (3.5-5.0); Alkaline Phosphatase 82 U/L (38-126); Anion Gap 8 mmol/L; Blood Urea Nitrogen 28 mg/dL (7-17); Carbon Dioxide 22 mmol/L (22-30); Chloride 113 mmol/L (98-107); Glucose 105 mg/dL (74-99); Potassium 3.7 mmol/L (3.5-5.1); Sodium 143 mmol/L (137-145); Total Bilirubin <0.1 mg/dL (0.2-1.3); Total Protein 5.5 g/dL (6.3-8.2)
--- NOTE | 2017-03-27 11:32 | P.PN ---
Subjective Progress Note Date: 03/27/17 Elisa Li is an 86-year-old female with past medical history significant for C. difficile 2 or 3. 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 Patient's caregiver states she started having a little bit of diarrhea last night and today she was having profuse diarrhea and generalized weakness. Patient's caregiver states that the smell the diarrhea smelling like when she had her C. diff in the past. Patient denies any abdominal pain. Patient denies any fever chills. Patient denies any other symptoms. She denies a headache she denies numbness weakness patient denies lightheadedness dizziness or near syncopal episode. Patient denies any chest pain difficulty breathing or shortness of breath. White blood count was elevated at 17,000 on admission. On 03/26/2017 patient is feeling better she has mild abdominal discomfort she had 2 episodes of diarrhea today but stool is starting to get formed, white blood count is significantly down to 8000 patient is not receiving any antibiotics she was evaluated by Dr. Beck and his input was reviewed. On 03/27/2017 patient is alert confused in no apparent distress she is still having episodes of foul-smelling diarrhea otherwise no complaints, family is noticing worsening in confusion otherwise no change since yesterday. Objective - Vital Signs Vital signs: Vital Signs Temp 100 F H 03/27/17 07:00 Pulse 78 03/27/17 08:00 Resp 16 03/27/17 08:00 BP 115/56 03/27/17 07:00 Pulse Ox 99 03/27/17 07:00 Intake & Output 03/26/17 03/27/17 03/27/17 18:59 06:59 18:59 Weight 77.111 kg Other: Voiding Method Incontinent Incontinent Incontinent # Voids 1 2 # Bowel Movements 1 - Exam HEENT head normocephalic and atraumatic Neck is supple no JVD no goiter no lymphadenopathy Chest is clear to auscultation no crackles no wheezing Cardiac exam reveals regular heart sounds no gallops no murmurs Abdomen is soft nontender no organomegaly with normal bowel sounds Extremity exam reveals no edema no cyanosis or clubbing Neurological examination reveals no gross focal deficit patient is alert confused with baseline dementia - Labs CBC & Chem 7: 03/27/17 06:51 03/27/17 06:51 Labs: Abnormal Lab Results - Last 24 Hours (Table) 03/27/17 03/27/17 Range/Units 06:51 06:51 RBC 3.28 L (3.80-5.40) m/uL Hgb 8.9 L (11.4-16.0) gm/dL Hct 29.3 L (34.0-46.0) % MCHC 30.4 L (31.0-37.0) g/dL RDW 17.4 H (11.5-15.5) % Lymphocytes # 0.3 L (1.0-4.8) k/uL Chloride 113 H (98-107) mmol/L BUN 28 H (7-17) mg/dL Creatinine 1.30 H (0.52-1.04) mg/dL Glucose 105 H (74-99) mg/dL Total Bilirubin <0.1 L (0.2-1.3) mg/dL Total Protein 5.5 L (6.3-8.2) g/dL Albumin 2.7 L (3.5-5.0) g/dL Microbiology - Last 24 Hours (Table) 03/25/17 01:29 Blood Culture - Preliminary Blood No Growth after 48 hours 03/25/17 01:20 Blood Culture - Preliminary Blood No Growth after 48 hours 03/24/17 15:41 Stool Culture - Preliminary Stool Assessment and Plan Plan: #1 Clostridium difficile colitis #2 dehydration with acute renal failure #3 underlying history of dementia #4 underlying history of chronic anemia due to diverticulosis #5 chronic atrial fibrillation #6 underlying history of hypertension #7 hypokalemia correcting At this time case was discussed with family in details, profiling machine operator at [facility] contacted Infectious disease consultation has been requested, recommendation from Dr. Beck was to avoid antibiotics and treated symptomatically No vancomycin was started patient is improving will monitor closely
[2017-03-27] MEDS: traZODone HCL 100 MG TAB PO SCH (20:54)
[2017-03-27] MEDS: ACETAMINOPHEN TAB 325 MG TAB PO PRN (22:35)
[2017-03-28] MEDS: ESCITALOPRAM 10 MG TAB PO SCH (08:33)
[2017-03-28] MEDS: LACTOBACILLUS ACIDOPH & BULGAR 1 EACH PACKET PO SCH (08:33)
[2017-03-28] MEDS: METOPROLOL TARTRATE 12.5 MG TAB PO SCH (08:33)
[2017-03-28] MEDS: CHOLESTYRAMINE (WITH SUGAR) 4 GM PACKET PO SCH ×2 (08:33→17:22)
[2017-03-28] MEDS: APIXABAN 2.5 MG TABLET PO SCH ×2 (08:34→21:30)
[2017-03-28] MEDS: LISINOPRIL 20 MG TAB PO SCH ×2 (08:34→21:30)
[2017-03-28] MEDS: FERROUS SULFATE 325 MG TAB PO SCH ×2 (08:34→21:30)
[2017-03-28] MEDS: ACETAMINOPHEN TAB 325 MG TAB PO PRN ×3 (08:34→23:56)
[2017-03-28] MEDS: CHOLECALCIFEROL 1,000 UNIT TAB PO SCH (08:34)
[2017-03-28 08:42] LABS: Anisocytosis Slight; Basophils % (A) 0 %; Eosinophils % (A) 0 %; HCT 32.2 % (34.0-46.0); HGB 9.5 gm/dL (11.4-16.0); Hypochromasia Marked; Lymphocytes # (A) 0.3 k/uL (1.0-4.8); Lymphocytes % (A) 2 %; MCH 26.9 pg (25.0-35.0); MCHC 29.4 g/dL (31.0-37.0); MCV 91.4 fL (80.0-100.0); Mean Platelet Volume 8.3; Monocytes # (A) 1.4 k/uL (0-1.0); Monocytes % (A) 11 %; Neutrophils # (A) 10.3 k/uL (1.3-7.7); Neutrophils % (A) 84 %; Platelet Count 217 k/uL (150-450); RBC 3.53 m/uL (3.80-5.40); RDW 17.9 % (11.5-15.5); WBC 12.3 k/uL (3.8-10.6)
[2017-03-28 08:51] LABS: Albumin 2.9 g/dL (3.5-5.0); Calcium 8.8 mg/dL (8.4-10.2); Potassium 3.7 mmol/L (3.5-5.1); Total Bilirubin 0.3 mg/dL (0.2-1.3); Total Protein 5.7 g/dL (6.3-8.2)
--- NOTE | 2017-03-28 11:46 | P.PN ---
Subjective Progress Note Date: 03/28/17 Elisa Li is an 86-year-old female with past medical history significant for C. difficile 2 or 3. 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 Patient's caregiver states she started having a little bit of diarrhea last night and today she was having profuse diarrhea and generalized weakness. Patient's caregiver states that the smell the diarrhea smelling like when she had her C. diff in the past. Patient denies any abdominal pain. Patient denies any fever chills. Patient denies any other symptoms. She denies a headache she denies numbness weakness patient denies lightheadedness dizziness or near syncopal episode. Patient denies any chest pain difficulty breathing or shortness of breath. White blood count was elevated at 17,000 on admission. 03/28/2017 patient still having loose stools but not as frequent. Patient had a temp of 101.4 last night white count has jumped up to 12.3. Blood cultures and urine culture ordered. Nursing staff reporting when they try to stay straight cath patient for urine sample the extent lately entered the vaginal canal there was a pop that was heard and greenish fluid was expelled. Upon my exam patient was resting comfortably. No evidence of pain or distress. Discussed case with patient's daughter. She is concerned about her mother's confusion Objective - Vital Signs Vital signs: Vital Signs Temp 99.3 F 03/28/17 07:00 Pulse 131 H 03/28/17 07:00 Resp 18 03/28/17 07:00 BP 128/74 03/28/17 07:00 Pulse Ox 93 L 03/28/17 07:00 Intake & Output 03/27/17 03/28/17 03/28/17 18:59 06:59 18:59 Intake Total 480 Balance 480 Intake: Oral 480 Other: Voiding Method Incontinent # Voids 3 5 1 # Bowel Movements 1 5 1 - Exam Head normocephalic Neck supple Lungs clear to auscultation bilaterally no wheezing or crackles Heart regular rate and rhythm S1-S2, no rub or gallop Abdomen is soft nontender nondistended positive bowel sounds no hepatosplenomegaly Extremities no edema Neuro resting comfortably. No evidence of distress - Labs CBC & Chem 7: 03/28/17 07:37 03/28/17 07:37 Labs: Abnormal Lab Results - Last 24 Hours (Table) 03/27/17 03/28/17 03/28/17 Range/Units 23:59 07:37 07:37 WBC 12.3 H (3.8-10.6) k/uL RBC 3.53 L (3.80-5.40) m/uL Hgb 9.5 L (11.4-16.0) gm/dL Hct 32.2 L (34.0-46.0) % MCHC 29.4 L (31.0-37.0) g/dL RDW 17.9 H (11.5-15.5) % Neutrophils # 10.3 H (1.3-7.7) k/uL Lymphocytes # 0.3 L (1.0-4.8) k/uL Monocytes # 1.4 H (0-1.0) k/uL Chloride 111 H (98-107) mmol/L Carbon Dioxide 20 L (22-30) mmol/L BUN 19 H (7-17) mg/dL Creatinine 1.12 H (0.52-1.04) mg/dL Plasma Lactic Acid Agustin 0.6 L (0.7-2.0) mmol/L Total Protein 5.7 L (6.3-8.2) g/dL Albumin 2.9 L (3.5-5.0) g/dL Microbiology - Last 24 Hours (Table) 03/24/17 15:41 Stool Culture - Final Stool 03/25/17 01:29 Blood Culture - Preliminary Blood No Growth after 72 hours 03/25/17 01:20 Blood Culture - Preliminary Blood No Growth after 72 hours Assessment and Plan Assessment: #1 Clostridium difficile colitis: Patient has had history of fecal transplants. Dr. Beck is following. Reports to avoid antibiotics and treat symptomatically. Continue Questran and probiotics #2 dehydration with acute renal failure. Continue with IV fluids #3 underlying history of dementia #4 underlying history of chronic anemia due to diverticulosis #5 chronic atrial fibrillation. Continue Eliquis #6 underlying history of hypertension #7 hypokalemia correcting #8 fever with tachycardia and leukocytosis. Blood culture and urine culture ordered. Infectious disease was notified. Patient also noted to have some vaginal discharge I performed an examination of the patient and discussed their management with the physician Arbitrator. I have reviewed the Physician Arbitrator's notes and agree with the documented findings and plan of care
[2017-03-28 11:58] LABS: Appearance,Urine Cloudy (Clear); Bacteria,Urine Many /hpf; Bilirubin,Urine Negative (Negative); Blood,Urine Moderate (Negative); Color,Urine Yellow; Glucose,Urine (UA) Negative (Negative); Ketones,Urine Negative (Negative); Leukocyte Esterase,Urine Moderate (Negative); Mucus,Urine Many /hpf; Nitrite,Urine Positive (Negative); PH, Urine 5.5 (5.0-8.0); Protein,Urine 1+ (Negative); RBC,Urine 2 /hpf (0-5); Specific Gravity,Urine 1.017 (1.001-1.035); Squamous Epithelial Cell,Urine 2 /hpf (0-4); Urobilinogen,Urine <2.0 mg/dL (<2.0); WBC,Urine 23 /hpf (0-5)
[2017-03-28] MEDS: SODIUM CHLORIDE 0.9% 1,000 ML IV SCH (12:29)
--- NOTE | 2017-03-28 14:19 | CDI ---
Last Revision, February 2017 Documentation Clarification Form Date: 03/28/2017 1:56:00 PM From: Kenna Lane Admit Date: 03/24/2017 4:42:00 PM Patient Name: Elisa Li Visit Number: [id number] ATTENTION: The Clinical Documentation Specialists (CDI) and [facility] Coding Staff appreciate your assistance in clarifying documentation. Please respond to the clarification below the line at the bottom and electronically sign. The CDI & [facility] Coding staff will review the response and follow-up if needed. Please note: Queries are made part of the Legal Health Record. If you have any questions, please contact the author of this message via ITS. Dr. Manny Goldman and Sheron Shukla, Chronic Renal failure was documented in the in the H&P under past medical history. History/Risk Factors: a-fib, HTN, renal disease on admission: BUN 33, CR 1.60, GFR 30 Clinical Indicators: Curent BUN/Cr/GFR : BUN 19, CR 1.12, GFR 46 dehydration with acute renal failure in the H&P and progress notes Treatment: IVF: bolus x 1 In order to capture the severity of condition, please clarify if the condition signifies: Acute on chronic renal failure (please stage ckd) CKD Stage 3 GFR 30-59 CKD other Stage (please specify) CKD ruled out Other, please specify Unable to determine Please continue to document in your progress notes and discharge summary in order to capture severity of illness and risk of mortality. Include clinical findings that support your diagnosis. MTDD
[2017-03-28] MEDS: traZODone HCL 100 MG TAB PO SCH (21:30)
--- NOTE | 2017-03-28 23:19 | P.PN ---
Subjective Progress Note Date: 03/28/17 Principal diagnosis: Diarrhea and dehydration 86-year-old female patient of Dr. Goldman, is known to Dr. Moss to hospital with recurrence of diarrhea. Review of the data reveals that this pleasant but demented woman has had ongoing difficulties with diarrhea over this past year. It appears that she's had fecal transplantation performed in 2 events [facility].she is cared for by her children in their homes. Apparently she started developed profuse amount of diarrhea and became quite weak. Because the stool smell like C. diff she was brought to hospitaland testing did reveal evidence of ongoing evidence of C. diff. Because she was symptomatic she was admitted and has received fluids. Because of the concerns of ongoing infection the ID evaluation was requested. The patient is very pleasant but demented.14 since coming to Hospital to profuse nature of her diarrhea starting to improve. She is feeling slightly better. Patient was having some improvement but again had fever and some increased leukocytosis. Nursing staff related today is significant amount of purulent drainage from the vaginal vault when a Tsang catheter was placed. Severe hypokalemia has improved. With her fever her mentation has again worsened. Objective - Vital Signs Vital signs: Vital Signs Temp 99.8 F H 03/28/17 15:00 Pulse 66 03/28/17 15:00 Resp 18 03/28/17 15:00 BP 120/87 03/28/17 15:00 Pulse Ox 96 03/28/17 15:00 Intake & Output 03/28/17 03/28/17 03/29/17 06:59 18:59 06:59 Intake Total 960 Balance 960 Intake: Oral 960 Other: Voiding Method Diaper Incontinent # Voids 5 1 # Bowel Movements 5 2 - Exam 86-year-old female pleasantly demented and is comfortable at this time. HEENT: Anicteric conjunctiva are pink and moist nasal mucosa grossly intact without significant lesions, there is no thrush. Neck: The neck is supple without significant lymphadenopathy or thyromegaly. Lungs: Good bilateral air entry without significant crackles or wheezing. There is no significant bronchial sounds. There is no egophony or dullness. Heart: Regular rate and rhythm with an audible S1-S2, no S3 no S4. There is no significant murmur click or rub, PMI was nondisplaced. Abdomen: Positive bowel sounds soft and has minimal bilateral lower quadrant tenderness without palpable masses or organomegaly. There was no guarding or rebound. Extremities: The upper extremities have excellent pulses they are symmetric, no significant petechiae or telangiectasia. No splinter hemorrhages were noted. The lower extremities are free from significant edema. The peripheral pulses were 2+ and symmetric. Neuro: Arousable but confused but not in distress With the nurses present vaginal exam was performed with evidence of some purulent drainage which is swabbed and sent to the laboratory for culture. - Labs CBC & Chem 7: 03/28/17 07:37 03/28/17 07:37 Labs: Abnormal Lab Results - Last 24 Hours (Table) 03/27/17 03/28/17 03/28/17 Range/Units 23:59 07:37 07:37 WBC 12.3 H (3.8-10.6) k/uL RBC 3.53 L (3.80-5.40) m/uL Hgb 9.5 L (11.4-16.0) gm/dL Hct 32.2 L (34.0-46.0) % MCHC 29.4 L (31.0-37.0) g/dL RDW 17.9 H (11.5-15.5) % Neutrophils # 10.3 H (1.3-7.7) k/uL Lymphocytes # 0.3 L (1.0-4.8) k/uL Monocytes # 1.4 H (0-1.0) k/uL Chloride 111 H (98-107) mmol/L Carbon Dioxide 20 L (22-30) mmol/L BUN 19 H (7-17) mg/dL Creatinine 1.12 H (0.52-1.04) mg/dL Plasma Lactic Acid Agustin 0.6 L (0.7-2.0) mmol/L Total Protein 5.7 L (6.3-8.2) g/dL Albumin 2.9 L (3.5-5.0) g/dL Urine Appearance (Clear) Urine Protein (Negative) Urine Blood (Negative) Urine Nitrite (Negative) Ur Leukocyte Esterase (Negative) Urine WBC (0-5) /hpf Urine Bacteria (None) /hpf Urine Mucus (None) /hpf 03/28/17 Range/Units 11:30 WBC (3.8-10.6) k/uL RBC (3.80-5.40) m/uL Hgb (11.4-16.0) gm/dL Hct (34.0-46.0) % MCHC (31.0-37.0) g/dL RDW (11.5-15.5) % Neutrophils # (1.3-7.7) k/uL Lymphocytes # (1.0-4.8) k/uL Monocytes # (0-1.0) k/uL Chloride (98-107) mmol/L Carbon Dioxide (22-30) mmol/L BUN (7-17) mg/dL Creatinine (0.52-1.04) mg/dL Plasma Lactic Acid Agustin (0.7-2.0) mmol/L Total Protein (6.3-8.2) g/dL Albumin (3.5-5.0) g/dL Urine Appearance Cloudy H (Clear) Urine Protein 1+ H (Negative) Urine Blood Moderate H (Negative) Urine Nitrite Positive H (Negative) Ur Leukocyte Esterase Moderate H (Negative) Urine WBC 23 H (0-5) /hpf Urine Bacteria Many H (None) /hpf Urine Mucus Many H (None) /hpf Microbiology - Last 24 Hours (Table) 03/28/17 11:30 Urine Culture - Preliminary Urine,Catheterized 03/24/17 15:41 Stool Culture - Final Stool 03/25/17 01:29 Blood Culture - Preliminary Blood No Growth after 72 hours 03/25/17 01:20 Blood Culture - Preliminary Blood No Growth after 72 hours Assessment and Plan (1) Clostridium difficile infection Narrative/Plan: 86-year-old female who has a history of dementia is developed recurrence of C. diff colitis. At home was having profound amounts of diarrhea resulting in weakness, dehydration and leukocytosis. Feeling somewhat better today. The nursing staff are relating to one loose stool only so far today. There is significant concerns from the family about ongoing treatment of her disease state. At this time since she's had fecal transplantation with attempts to monitor her off of any type of antibiotic therapy to see with supportive care if she cannot have improvement. Probiotic therapy is given no and also adding cholestyramine since this is a toxin binder and may help also improve the volume of her stool. Ridges stool volume reduce his dehydration and improve his functional status. Her abdomen is soft without much tenderness does not have an acute abdomen. She does not have raheem sepsis at this time.leukocytosis is due to the acute illness and should be monitored and would expect it to rapidly improve.if there is any further abdominal discomforts a plain film of the abdomen will be helpful it is the goal at this time would be the avoidance of antibiotic therapy of any type, with supportive care she may be able to recover from the flare of C. diff. Continue with probiotic therapy, cholestyramine, and a dose of Imodium to lower the volume of stool can help with her dehydration and hypokalemia. Hypokalemia resolved Patient has had some further worsening. Fever was noted. Leukocytosis is increased. A urine specimen is sent to the laboratory which remains abnormal. However the time of the straight catheterization grossly purulent material came out of the vaginal vault with concerns of a bacterial vaginosis related to her diarrhea. Metronidazole was added and she'll monitored closely with concerns of any antibiotic therapy with her underlying C. diff. Further antibiotic may be required if she truly has a urinary tract infection. Current Visit: Yes Status: Acute Code(s): B96.89 - OTH BACTERIAL AGENTS THE CAUSE OF DISEASES CLASSD [facility] SNOMED Code(s): 830040468 (2) Dementia Current Visit: Yes Status: Acute Code(s): F03.90 - UNSPECIFIED DEMENTIA WITHOUT BEHAVIORAL DISTURBANCE SNOMED Code(s): 44962521 (3) Leukocytosis Current Visit: Yes Status: Acute Code(s): D72.829 - ELEVATED WHITE BLOOD CELL COUNT, UNSPECIFIED SNOMED Code(s): 293032090
[2017-03-28] MEDS: metroNIDAZOLE 500 MG TAB PO SCH (23:48)
[2017-03-29 08:29] LABS: Anisocytosis Slight; Basophils % (A) 0 %; Eosinophils # (A) 0.1 k/uL (0-0.7); Eosinophils % (A) 1 %; HCT 30.3 % (34.0-46.0); HGB 8.9 gm/dL (11.4-16.0); Hypochromasia Marked; Lymphocytes # (A) 0.3 k/uL (1.0-4.8); Lymphocytes % (A) 3 %; MCH 26.6 pg (25.0-35.0); MCHC 29.2 g/dL (31.0-37.0); Mean Platelet Volume 7.3; Monocytes % (A) 9 %; Neutrophils # (A) 9.5 k/uL (1.3-7.7); Neutrophils % (A) 85 %; Platelet Count 247 k/uL (150-450); RBC 3.33 m/uL (3.80-5.40); RDW 16.5 % (11.5-15.5); WBC 11.2 k/uL (3.8-10.6)
[2017-03-29 08:44] LABS: Albumin 2.6 g/dL (3.5-5.0); Calcium 8.8 mg/dL (8.4-10.2); Potassium 3.7 mmol/L (3.5-5.1); Total Bilirubin 0.2 mg/dL (0.2-1.3); Total Protein 5.3 g/dL (6.3-8.2)
[2017-03-29] MEDS: metroNIDAZOLE 500 MG TAB PO SCH ×3 (09:12→21:37)
[2017-03-29] MEDS: METOPROLOL TARTRATE 12.5 MG TAB PO SCH (09:12)
[2017-03-29] MEDS: CHOLECALCIFEROL 1,000 UNIT TAB PO SCH (09:12)
[2017-03-29] MEDS: CHOLESTYRAMINE (WITH SUGAR) 4 GM PACKET PO SCH ×2 (09:12→16:23)
[2017-03-29] MEDS: APIXABAN 2.5 MG TABLET PO SCH ×2 (09:12→21:37)
[2017-03-29] MEDS: LACTOBACILLUS ACIDOPH & BULGAR 1 EACH PACKET PO SCH (09:12)
[2017-03-29] MEDS: FERROUS SULFATE 325 MG TAB PO SCH ×2 (09:12→21:37)
[2017-03-29] MEDS: LISINOPRIL 20 MG TAB PO SCH ×2 (09:13→21:37)
[2017-03-29] MEDS: SODIUM CHLORIDE 0.9% 1,000 ML IV SCH (09:13)
[2017-03-29] MEDS: ESCITALOPRAM 10 MG TAB PO SCH (09:13)
--- NOTE | 2017-03-29 17:16 | P.PN ---
Subjective Elisa Li is an 86-year-old female with past medical history significant for C. difficile 2 or 3. 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 Patient's caregiver states she started having a little bit of diarrhea last night and today she was having profuse diarrhea and generalized weakness. Patient's caregiver states that the smell the diarrhea smelling like when she had her C. diff in the past. Patient denies any abdominal pain. Patient denies any fever chills. Patient denies any other symptoms. She denies a headache she denies numbness weakness patient denies lightheadedness dizziness or near syncopal episode. Patient denies any chest pain difficulty breathing or shortness of breath. White blood count was elevated at 17,000 on admission. On 03/26/2017 patient is feeling better she has mild abdominal discomfort she had 2 episodes of diarrhea today but stool is starting to get formed, white blood count is significantly down to 8000 patient is not receiving any antibiotics she was evaluated by Dr. Beck and his input was reviewed. On 03/27/2017 patient is alert confused in no apparent distress she is still having episodes of foul-smelling diarrhea otherwise no complaints, family is noticing worsening in confusion otherwise no change since yesterday. On 03/29/2017 patient is alert confused in no apparent distress diarrhea has improved, Flagyl was added due to copius greenish discharge from the vaginal vault. Objective - Vital Signs Vital signs: Vital Signs Temp 99 F 03/29/17 15:56 Pulse 50 L 03/29/17 15:56 Resp 19 03/29/17 15:56 BP 122/62 03/29/17 15:56 Pulse Ox 97 03/29/17 15:56 Intake & Output 03/28/17 03/29/17 03/29/17 18:59 06:59 18:59 Intake Total 960 800 200 Balance 960 800 200 Intake: Intake, IV Titration 800 Amount Sodium Chloride 0.9% 1, 800 000 ml @ 50 mls/hr IV . Q20H [facility] Rx#:[id number] Oral 960 200 Other: Voiding Method Diaper Diaper Bedside Commode Incontinent Incontinent # Voids 1 1 # Bowel Movements 2 3 3 - Exam HEENT head normocephalic and atraumatic Neck is supple no JVD no goiter no lymphadenopathy Chest is clear to auscultation no crackles no wheezing Cardiac exam reveals regular heart sounds no gallops no murmurs Abdomen is soft nontender no organomegaly with normal bowel sounds Extremity exam reveals no edema no cyanosis or clubbing Neurological examination reveals no gross focal deficit patient is alert confused with baseline dementia - Labs CBC & Chem 7: 03/29/17 07:45 03/29/17 07:45 Labs: Abnormal Lab Results - Last 24 Hours (Table) 03/29/17 03/29/17 Range/Units 07:45 07:45 WBC 11.2 H (3.8-10.6) k/uL RBC 3.33 L (3.80-5.40) m/uL Hgb 8.9 L (11.4-16.0) gm/dL Hct 30.3 L (34.0-46.0) % MCHC 29.2 L (31.0-37.0) g/dL RDW 16.5 H (11.5-15.5) % Neutrophils # 9.5 H (1.3-7.7) k/uL Lymphocytes # 0.3 L (1.0-4.8) k/uL Sodium 146 H (137-145) mmol/L Chloride 114 H (98-107) mmol/L BUN 25 H (7-17) mg/dL Creatinine 1.15 H (0.52-1.04) mg/dL Total Protein 5.3 L (6.3-8.2) g/dL Albumin 2.6 L (3.5-5.0) g/dL Microbiology - Last 24 Hours (Table) 03/28/17 11:30 Urine Culture - Final Urine,Catheterized 03/28/17 19:41 Gram Stain - Final Genital Genital Culture - Preliminary 03/25/17 01:29 Blood Culture - Preliminary Blood No Growth after 96 hours 03/25/17 01:20 Blood Culture - Preliminary Blood No Growth after 96 hours 03/27/17 23:59 Blood Culture - Preliminary Blood No Growth after 24 hours 03/27/17 23:59 Blood Culture - Preliminary Blood No Growth after 24 hours Assessment and Plan Plan: #1 Clostridium difficile colitis #2 dehydration with acute renal failure #3 underlying history of dementia #4 underlying history of chronic anemia due to diverticulosis #5 chronic atrial fibrillation #6 underlying history of hypertension #7 hypokalemia correcting #8 Flagyl was added to regimen due to greenish vaginal discharge At this time case was discussed with family in details, drapery and upholstery measurer at [facility] contacted Infectious disease consultation has been requested, recommendation from Dr. Beck was to avoid antibiotics and treated symptomatically No vancomycin was started patient is improving will monitor closely
[2017-03-29] MEDS: traZODone HCL 100 MG TAB PO SCH (21:37)
[2017-03-29] MEDS ORDERED: LOPERAMIDE 2 MG CAP PO STA (23:38)
--- NOTE | 2017-03-29 23:38 | P.PN ---
Subjective Progress Note Date: 03/29/17 Principal diagnosis: Diarrhea and dehydration 86-year-old female patient of Dr. Goldman, is known to Dr. Moss to hospital with recurrence of diarrhea. Review of the data reveals that this pleasant but demented woman has had ongoing difficulties with diarrhea over this past year. 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 Apparently she started developed profuse amount of diarrhea and became quite weak. Because the stool smell like C. diff she was brought to hospitaland testing did reveal evidence of ongoing evidence of C. diff. Because she was symptomatic she was admitted and has received fluids. Because of the concerns of ongoing infection the ID evaluation was requested. The patient is very pleasant but demented.14 since coming to Hospital to profuse nature of her diarrhea starting to improve. She is feeling slightly better. Patient was having some improvement but again had fever and some increased leukocytosis. Nursing staff related today is significant amount of purulent drainage from the vaginal vault when a Tsang catheter was placed. Severe hypokalemia has improved. With her fever her mentation has again worsened. The patient has had several bouts of diarrhea today. Mentation remains poor. Unclear the vaginal drainage is improved with the start of the metronidazole. Has not yet improved diarrhea. Objective - Vital Signs Vital signs: Vital Signs Temp 99 F 03/29/17 15:56 Pulse 50 L 03/29/17 15:56 Resp 19 03/29/17 22:11 BP 122/62 03/29/17 15:56 Pulse Ox 97 03/29/17 15:56 Intake & Output 03/29/17 03/29/17 03/30/17 06:59 18:59 06:59 Intake Total 800 200 Balance 800 200 Weight 77.111 kg Intake: Intake, IV Titration 800 Amount Sodium Chloride 0.9% 1, 800 000 ml @ 50 mls/hr IV . Q20H [facility] Rx#:[id number] Oral 200 Other: Voiding Method Diaper Bedside Commode Bedside Commode Incontinent Diaper Incontinent # Voids 2 # Bowel Movements 3 2 - Exam 86-year-old female pleasantly demented and is comfortable at this time. HEENT: Anicteric conjunctiva are pink and moist nasal mucosa grossly intact without significant lesions, there is no thrush. Neck: The neck is supple without significant lymphadenopathy or thyromegaly. Lungs: Good bilateral air entry without significant crackles or wheezing. There is no significant bronchial sounds. There is no egophony or dullness. Heart: Regular rate and rhythm with an audible S1-S2, no S3 no S4. There is no significant murmur click or rub, PMI was nondisplaced. Abdomen: Positive bowel sounds soft and has minimal bilateral lower quadrant tenderness without palpable masses or organomegaly. There was no guarding or rebound. Extremities: The upper extremities have excellent pulses they are symmetric, no significant petechiae or telangiectasia. No splinter hemorrhages were noted. The lower extremities are free from significant edema. The peripheral pulses were 2+ and symmetric. Neuro: Arousable but confused but not in distress - Labs CBC & Chem 7: 03/29/17 07:45 03/29/17 07:45 Labs: Abnormal Lab Results - Last 24 Hours (Table) 03/29/17 03/29/17 Range/Units 07:45 07:45 WBC 11.2 H (3.8-10.6) k/uL RBC 3.33 L (3.80-5.40) m/uL Hgb 8.9 L (11.4-16.0) gm/dL Hct 30.3 L (34.0-46.0) % MCHC 29.2 L (31.0-37.0) g/dL RDW 16.5 H (11.5-15.5) % Neutrophils # 9.5 H (1.3-7.7) k/uL Lymphocytes # 0.3 L (1.0-4.8) k/uL Sodium 146 H (137-145) mmol/L Chloride 114 H (98-107) mmol/L BUN 25 H (7-17) mg/dL Creatinine 1.15 H (0.52-1.04) mg/dL Total Protein 5.3 L (6.3-8.2) g/dL Albumin 2.6 L (3.5-5.0) g/dL Microbiology - Last 24 Hours (Table) 03/28/17 11:30 Urine Culture - Final Urine,Catheterized 03/28/17 19:41 Gram Stain - Final Genital Genital Culture - Preliminary 12/30/17 01:29 Blood Culture - Preliminary Blood No Growth after 96 hours 03/25/17 01:20 Blood Culture - Preliminary Blood No Growth after 96 hours 03/27/17 23:59 Blood Culture - Preliminary Blood No Growth after 24 hours 03/27/17 23:59 Blood Culture - Preliminary Blood No Growth after 24 hours Laboratory Results WBC 11.2 k/uL (3.8-10.6) H 03/29/17 07:45 RBC 3.33 m/uL (3.80-5.40) L 03/29/17 07:45 Hgb 8.9 gm/dL (11.4-16.0) L 03/29/17 07:45 Hct 30.3 % (34.0-46.0) L 03/29/17 07:45 MCV 91.0 fL (80.0-100.0) 03/29/17 07:45 MCH 26.6 pg (25.0-35.0) 03/29/17 07:45 MCHC 29.2 g/dL (31.0-37.0) L 03/29/17 07:45 RDW 16.5 % (11.5-15.5) H 03/29/17 07:45 Plt Count 247 k/uL (150-450) 03/29/17 07:45 Neutrophils % 85 % 03/29/17 07:45 Lymphocytes % 3 % 03/29/17 07:45 Monocytes % 9 % 03/29/17 07:45 Eosinophils % 1 % 03/29/17 07:45 Basophils % 0 % 03/29/17 07:45 Neutrophils # 9.5 k/uL (1.3-7.7) H 03/29/17 07:45 Lymphocytes # 0.3 k/uL (1.0-4.8) L 03/29/17 07:45 Monocytes # 1.0 k/uL (0-1.0) 03/29/17 07:45 Eosinophils # 0.1 k/uL (0-0.7) 03/29/17 07:45 Basophils # 0.0 k/uL (0-0.2) 03/29/17 07:45 Hypochromasia Marked 03/29/17 07:45 Anisocytosis Slight 03/29/17 07:45 Sodium 146 mmol/L (137-145) H 03/29/17 07:45 Potassium 3.7 mmol/L (3.5-5.1) 03/29/17 07:45 Chloride 114 mmol/L (98-107) H 03/29/17 07:45 Carbon Dioxide 22 mmol/L (22-30) 03/29/17 07:45 Anion Gap 10 mmol/L 03/29/17 07:45 BUN 25 mg/dL (7-17) H 03/29/17 07:45 Creatinine 1.15 mg/dL (0.52-1.04) H 03/29/17 07:45 Est GFR (MDRD) Af Amer 54 (>60 ml/min/1.73 sqM) 03/29/17 07:45 Est GFR (MDRD) Non-Af 45 (>60 ml/min/1.73 sqM) 03/29/17 07:45 Glucose 96 mg/dL (74-99) 03/29/17 07:45 Plasma Lactic Acid Agustin 0.6 mmol/L (0.7-2.0) L 03/27/17 23:59 Calcium 8.8 mg/dL (8.4-10.2) 03/29/17 07:45 Magnesium 2.1 mg/dL (1.6-2.3) 03/26/17 07:14 Total Bilirubin 0.2 mg/dL (0.2-1.3) 03/29/17 07:45 AST 18 U/L (14-36) 03/29/17 07:45 ALT 37 U/L (9-52) 03/29/17 07:45 Alkaline Phosphatase 79 U/L (38-126) 03/29/17 07:45 Total Protein 5.3 g/dL (6.3-8.2) L 03/29/17 07:45 Albumin 2.6 g/dL (3.5-5.0) L 03/29/17 07:45 Amylase 40 U/L (30-110) 03/24/17 17:03 Lipase 13 U/L (23-300) L 03/24/17 17:03 Urine Color Yellow 03/28/17 11:30 Urine Appearance Cloudy (Clear) H 03/28/17 11:30 Urine pH 5.5 (5.0-8.0) 03/28/17 11:30 Ur Specific [place] 1.017 (1.001-1.035) 03/28/17 11:30 Urine Protein 1+ (Negative) H 03/28/17 11:30 Urine Glucose (UA) Negative (Negative) 03/28/17 11:30 Urine Ketones Negative (Negative) 03/28/17 11:30 Urine Blood Moderate (Negative) H 03/28/17 11:30 Urine Nitrite Positive (Negative) H 03/28/17 11:30 Urine Bilirubin Negative (Negative) 03/28/17 11:30 Urine Urobilinogen <2.0 mg/dL (<2.0) 03/28/17 11:30 Ur Leukocyte Esterase Moderate (Negative) H 03/28/17 11:30 Urine RBC 2 /hpf (0-5) 03/28/17 11:30 Urine WBC 23 /hpf (0-5) H 03/28/17 11:30 Ur Squamous Epith Cells 2 /hpf (0-4) 03/28/17 11:30 Amorphous Sediment Rare /hpf (None) H 03/24/17 17:24 Urine Bacteria Many /hpf (None) H 03/28/17 11:30 Hyaline Casts 44 /lpf (0-2) H 03/24/17 17:24 Urine Mucus Many /hpf (None) H 03/28/17 11:30 C. difficile (EIA) Intrp Positive (Negative) A 03/24/17 15:41 Microbiology 03/28/17 11:30 Urine,Catheterized Urine Culture - Final 03/28/17 19:41 Genital Gram Stain - Final 03/28/17 19:41 Genital Genital Culture - Preliminary 03/25/17 01:29 Blood Blood Culture - Preliminary No Growth after 96 hours 03/25/17 01:20 Blood Blood Culture - Preliminary No Growth after 96 hours 03/27/17 23:59 Blood Blood Culture - Preliminary No Growth after 24 hours 03/27/17 23:59 Blood Blood Culture - Preliminary No Growth after 24 hours 03/24/17 15:41 Stool Stool Culture - Final Assessment and Plan (1) Clostridium difficile infection Narrative/Plan: 86-year-old female who has a history of dementia is developed recurrence of C. diff colitis. At home was having profound amounts of diarrhea resulting in weakness, dehydration and leukocytosis. Feeling somewhat better today. The nursing staff are relating to one loose stool only so far today. There is significant concerns from the family about ongoing treatment of her disease state. At this time since she's had fecal transplantation with attempts to monitor her off of any type of antibiotic therapy to see with supportive care if she cannot have improvement. Probiotic therapy is given no and also adding cholestyramine since this is a toxin binder and may help also improve the volume of her stool. [place] stool volume reduce his dehydration and improve his functional status. Her abdomen is soft without much tenderness does not have an acute abdomen. She does not have raheem sepsis at this time.leukocytosis is due to the acute illness and should be monitored and would expect it to rapidly improve.i it is the goal at this time would be the avoidance of antibiotic therapy of any type, with supportive care she may be able to recover from the flare of C. diff. Continue with probiotic therapy, cholestyramine, and a dose of Imodium to lower the volume of stool can help with her dehydration and hypokalemia. Hypokalemia resolved Patient has had some further worsening. Fever was noted. Leukocytosis is increased. A urine specimen is sent to the laboratory which remains abnormal. However the time of the straight catheterization grossly purulent material came out of the vaginal vault with concerns of a bacterial vaginosis related to her diarrhea. Metronidazole was added and she'll monitored closely with concerns of any antibiotic therapy with her underlying C. diff. Further antibiotic may be required if she truly has a urinary tract infection.Urine culture was grossly contaminated. Current Visit: Yes Status: Acute Code(s): B96.89 - OTH BACTERIAL AGENTS THE CAUSE OF DISEASES CLASSD [facility] SNOMED Code(s): 658490027 (2) Dementia Current Visit: Yes Status: Acute Code(s): F03.90 - UNSPECIFIED DEMENTIA WITHOUT BEHAVIORAL DISTURBANCE SNOMED Code(s): 00327907 (3) Leukocytosis Current Visit: Yes Status: Acute Code(s): D72.829 - ELEVATED WHITE BLOOD CELL COUNT, UNSPECIFIED SNOMED Code(s): 132654958
[2017-03-30] MEDS: SODIUM CHLORIDE 0.9% 1,000 ML IV SCH ×2 (03:41→23:25)
[2017-03-30] MEDS: LISINOPRIL 20 MG TAB PO SCH ×2 (08:43→21:02)
[2017-03-30] MEDS: APIXABAN 2.5 MG TABLET PO SCH ×2 (08:43→21:02)
[2017-03-30] MEDS: ESCITALOPRAM 10 MG TAB PO SCH (08:43)
[2017-03-30] MEDS: metroNIDAZOLE 500 MG TAB PO SCH ×3 (08:43→21:02)
[2017-03-30] MEDS: LACTOBACILLUS ACIDOPH & BULGAR 1 EACH PACKET PO SCH (08:43)
[2017-03-30] MEDS: FERROUS SULFATE 325 MG TAB PO SCH ×2 (08:43→21:02)
[2017-03-30] MEDS: METOPROLOL TARTRATE 12.5 MG TAB PO SCH (08:43)
[2017-03-30] MEDS: CHOLECALCIFEROL 1,000 UNIT TAB PO SCH (08:43)
[2017-03-30] MEDS: CHOLESTYRAMINE (WITH SUGAR) 4 GM PACKET PO SCH ×2 (08:44→18:24)
[2017-03-30 08:50] LABS: Anisocytosis Slight; Basophils % (A) 0 %; Eosinophils # (A) 0.1 k/uL (0-0.7); Eosinophils % (A) 1 %; HCT 32.2 % (34.0-46.0); HGB 9.4 gm/dL (11.4-16.0); Hypochromasia Marked; Lymphocytes # (A) 0.3 k/uL (1.0-4.8); Lymphocytes % (A) 4 %; MCH 27.1 pg (25.0-35.0); MCHC 29.1 g/dL (31.0-37.0); Mean Platelet Volume 7.5; Monocytes # (A) 0.8 k/uL (0-1.0); Monocytes % (A) 10 %; Neutrophils # (A) 6.4 k/uL (1.3-7.7); Neutrophils % (A) 82 %; Platelet Count 294 k/uL (150-450); RBC 3.46 m/uL (3.80-5.40); RDW 16.6 % (11.5-15.5); WBC 7.9 k/uL (3.8-10.6)
[2017-03-30 09:36] LABS: Albumin 2.6 g/dL (3.5-5.0); Calcium 8.6 mg/dL (8.4-10.2); Potassium 3.4 mmol/L (3.5-5.1); Total Bilirubin 0.2 mg/dL (0.2-1.3); Total Protein 5.4 g/dL (6.3-8.2)
[2017-03-30] MEDS ORDERED: Potassium Replacement Protocol 1 EACH MISC MISCELLANE PRN ×2 (10:38→11:08)
[2017-03-30] MEDS ORDERED: POTASSIUM CHLORIDE 10 MEQ in WATER FOR INJECTION 1 100ML.BAG IVPB ONE (11:00)
--- NOTE | 2017-03-30 11:42 | P.PN ---
Subjective Progress Note Date: 03/30/17 Elisa Li is an 86-year-old female with past medical history significant for C. difficile 2 or 3. 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 Patient's caregiver states she started having a little bit of diarrhea last night and today she was having profuse diarrhea and generalized weakness. Patient's caregiver states that the smell the diarrhea smelling like when she had her C. diff in the past. Patient denies any abdominal pain. Patient denies any fever chills. Patient denies any other symptoms. She denies a headache she denies numbness weakness patient denies lightheadedness dizziness or near syncopal episode. Patient denies any chest pain difficulty breathing or shortness of breath. White blood count was elevated at 17,000 on admission. 03/28/2017 patient still having loose stools but not as frequent. Patient had a temp of 101.4 last night white count has jumped up to 12.3. Blood cultures and urine culture ordered. Nursing staff reporting when they try to stay straight cath patient for urine sample the extent lately entered the vaginal canal there was a pop that was heard and greenish fluid was expelled. Upon my exam patient was resting comfortably. No evidence of pain or distress. Discussed case with patient's daughter. She is concerned about her mother's confusion 03/30/2017 per nursing patient is still having about 3-4 loose stools in the evening. Patient followed by infectious disease. Currently not on antibiotics for the C. diff. She is been started on Flagyl for a possible bacterial vaginosis. Patient is sitting in bedside chair. She has been crying and is very emotional. Nursing staff has notified patient's daughter. She will be up to the patient's room today. Patient is already on Lexapro. Denies any pain. She is confused Objective - Vital Signs Vital signs: Vital Signs Temp 97.8 F 03/30/17 07:00 Pulse 77 03/30/17 07:00 Resp 18 03/30/17 07:00 BP 133/74 03/30/17 07:00 Pulse Ox 91 L 03/30/17 07:00 Intake & Output 03/29/17 03/30/17 03/30/17 18:59 06:59 18:59 Intake Total 200 Balance 200 Weight 77.111 kg Intake: Oral 200 Other: Voiding Method Bedside Commode Bedside Commode Diaper Incontinent # Voids 2 0 1 # Bowel Movements 2 4 - Exam Head normocephalic Neck supple Lungs clear to auscultation bilaterally no wheezing or crackles Heart regular rate and rhythm S1-S2, no rub or gallop Abdomen is soft nontender nondistended positive bowel sounds no hepatosplenomegaly Extremities no edema Neuro alert and orientated to name only - Labs CBC & Chem 7: 03/30/17 08:34 03/30/17 08:34 Labs: Abnormal Lab Results - Last 24 Hours (Table) 03/30/17 03/30/17 Range/Units 08:34 08:34 RBC 3.46 L (3.80-5.40) m/uL Hgb 9.4 L (11.4-16.0) gm/dL Hct 32.2 L (34.0-46.0) % MCHC 29.1 L (31.0-37.0) g/dL RDW 16.6 H (11.5-15.5) % Lymphocytes # 0.3 L (1.0-4.8) k/uL Potassium 3.4 L (3.5-5.1) mmol/L Chloride 114 H (98-107) mmol/L Carbon Dioxide 18 L (22-30) mmol/L BUN 23 H (7-17) mg/dL Creatinine 1.06 H (0.52-1.04) mg/dL Glucose 101 H (74-99) mg/dL Total Protein 5.4 L (6.3-8.2) g/dL Albumin 2.6 L (3.5-5.0) g/dL Microbiology - Last 24 Hours (Table) 03/25/17 01:29 Blood Culture - Preliminary Blood No Growth after 120 hours 03/25/17 01:20 Blood Culture - Preliminary Blood No Growth after 120 hours 03/27/17 23:59 Blood Culture - Preliminary Blood No Growth after 48 hours 03/27/17 23:59 Blood Culture - Preliminary Blood No Growth after 48 hours 03/28/17 11:30 Urine Culture - Final Urine,Catheterized 03/28/17 19:41 Gram Stain - Final Genital Genital Culture - Preliminary Assessment and Plan Assessment: #1 Clostridium difficile colitis: Patient has had history of fecal transplants. Dr. Beck is following. Reports to avoid antibiotics and treat symptomatically. Continue Questran and probiotics. Patient was given 1 dose of Imodium yesterday #2 acute on chronic renal failure, stage III. Likely related to dehydration from her diarrhea. Continue with IV fluids #3 underlying history of dementia #4 underlying history of chronic anemia due to diverticulosis #5 chronic atrial fibrillation. Continue Eliquis #6 underlying history of hypertension #7 hypokalemia correcting #8 . Bacterial Vaginosis. Started on Flagyl per infectious disease I performed an examination of the patient and discussed their management with the physician Pickup Driver. I have reviewed the Physician Pickup Driver's notes and agree with the documented findings and plan of care
[2017-03-30] MEDS: POTASSIUM CHLORIDE ER 20 MEQ TAB.ER PO SCH ×2 (11:49→14:06)
[2017-03-30] MEDS: traZODone HCL 100 MG TAB PO SCH (21:02)
--- NOTE | 2017-03-30 22:22 | US ---
EXAMINATION TYPE: US venous doppler duplex LE RT DATE OF EXAM: 03/30/2017 10:11 PM COMPARISON: NONE CLINICAL HISTORY: Edema to leg and warm to touch. SIDE PERFORMED: Right TECHNIQUE: The lower extremity deep venous system is examined utilizing real time linear array sonog samson with graded compression, doppler sonography and color-flow sonography. VESSELS IMAGED: External Iliac Vein (EIV) Common Femoral Vein Deep Femoral Vein Greater Saphenous Vein * Femoral Vein Popliteal Vein Small Saphenous Vein * Proximal Calf Veins (* superficial vessels) Right Leg: Negative for DVT No evidence of DVT right leg IMPRESSION: Negative exam. No evidence of deep venous thrombosis in the right leg.
--- NOTE | 2017-03-31 00:59 | P.PN ---
Subjective Progress Note Date: 03/31/17 Principal diagnosis: Diarrhea and dehydration 86-year-old female patient of Dr. Goldman, is known to Dr. Moss to hospital with recurrence of diarrhea. Review of the data reveals that this pleasant but demented woman has had ongoing difficulties with diarrhea over this past year. 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 Apparently she started developed profuse amount of diarrhea and became quite weak. Because the stool smell like C. diff she was brought to hospitaland testing did reveal evidence of ongoing evidence of C. diff. Because she was symptomatic she was admitted and has received fluids. Because of the concerns of ongoing infection the ID evaluation was requested. The patient is very pleasant but demented.14 since coming to Hospital to profuse nature of her diarrhea starting to improve. She is feeling slightly better. Patient was having some improvement but again had fever and some increased leukocytosis. Nursing staff related today is significant amount of purulent drainage from the vaginal vault when a Tsang catheter was placed. Severe hypokalemia has improved. With her fever her mentation has again worsened. The patient has had several bouts of diarrhea today. Mentation remains poor. some increased swelling to the right lower portion was noted. Duplexes been ordered. Negative for DVT. Frequency of stools has improved today. Patient over still remains very weak. Objective - Vital Signs Vital signs: Vital Signs Temp 98.9 F 03/30/17 23:00 Pulse 67 03/30/17 23:00 Resp 12 03/30/17 23:00 BP 137/63 03/30/17 23:00 Pulse Ox 94 L 03/30/17 23:00 Intake & Output 03/30/17 03/30/17 03/31/17 06:59 18:59 06:59 Weight 77.111 kg 77.111 kg Other: Voiding Method Bedside Commode Bedside Commode Diaper Diaper Incontinent Incontinent # Voids 0 1 2 # Bowel Movements 4 2 2 - Exam 86-year-old female pleasantly demented and is comfortable at this time. HEENT: Anicteric conjunctiva are pink and moist nasal mucosa grossly intact without significant lesions, there is no thrush. Neck: The neck is supple without significant lymphadenopathy or thyromegaly. Lungs: Good bilateral air entry without significant crackles or wheezing. There is no significant bronchial sounds. There is no egophony or dullness. Heart: Regular rate and rhythm with an audible S1-S2, no S3 no S4. There is no significant murmur click or rub, PMI was nondisplaced. Abdomen: Positive bowel sounds soft and has minimal bilateral lower quadrant tenderness without palpable masses or organomegaly. There was no guarding or rebound. Extremities: The upper extremities have excellent pulses they are symmetric, no significant petechiae or telangiectasia. No splinter hemorrhages were noted. The lower extremities Reveal evidence of the increased size of the right lower extremity but has noted DVT was negative by duplex The peripheral pulses were 2 + and symmetric. Neuro: Arousable but confused but not in distress - Labs CBC & Chem 7: 03/30/17 08:34 03/30/17 08:34 Labs: Abnormal Lab Results - Last 24 Hours (Table) 03/30/17 03/30/17 Range/Units 08:34 08:34 RBC 3.46 L (3.80-5.40) m/uL Hgb 9.4 L (11.4-16.0) gm/dL Hct 32.2 L (34.0-46.0) % MCHC 29.1 L (31.0-37.0) g/dL RDW 16.6 H (11.5-15.5) % Lymphocytes # 0.3 L (1.0-4.8) k/uL Potassium 3.4 L (3.5-5.1) mmol/L Chloride 114 H (98-107) mmol/L Carbon Dioxide 18 L (22-30) mmol/L BUN 23 H (7-17) mg/dL Creatinine 1.06 H (0.52-1.04) mg/dL Glucose 101 H (74-99) mg/dL Total Protein 5.4 L (6.3-8.2) g/dL Albumin 2.6 L (3.5-5.0) g/dL Microbiology - Last 24 Hours (Table) 03/25/17 01:29 Blood Culture - Preliminary Blood No Growth after 120 hours 03/25/17 01:20 Blood Culture - Preliminary Blood No Growth after 120 hours 03/27/17 23:59 Blood Culture - Preliminary Blood No Growth after 48 hours 03/27/17 23:59 Blood Culture - Preliminary Blood No Growth after 48 hours Laboratory Results WBC 7.9 k/uL (3.8-10.6) 03/30/17 08:34 RBC 3.46 m/uL (3.80-5.40) L 03/30/17 08:34 Hgb 9.4 gm/dL (11.4-16.0) L 03/30/17 08:34 Hct 32.2 % (34.0-46.0) L 03/30/17 08:34 MCV 93.0 fL (80.0-100.0) 03/30/17 08:34 MCH 27.1 pg (25.0-35.0) 03/30/17 08:34 MCHC 29.1 g/dL (31.0-37.0) L 03/30/17 08:34 RDW 16.6 % (11.5-15.5) H 03/30/17 08:34 Plt Count 294 k/uL (150-450) 03/30/17 08:34 Neutrophils % 82 % 03/30/17 08:34 Lymphocytes % 4 % 03/30/17 08:34 Monocytes % 10 % 03/30/17 08:34 Eosinophils % 1 % 03/30/17 08:34 Basophils % 0 % 03/30/17 08:34 Neutrophils # 6.4 k/uL (1.3-7.7) 03/30/17 08:34 Lymphocytes # 0.3 k/uL (1.0-4.8) L 03/30/17 08:34 Monocytes # 0.8 k/uL (0-1.0) 03/30/17 08:34 Eosinophils # 0.1 k/uL (0-0.7) 03/30/17 08:34 Basophils # 0.0 k/uL (0-0.2) 03/30/17 08:34 Hypochromasia Marked 03/30/17 08:34 Anisocytosis Slight 03/30/17 08:34 Sodium 144 mmol/L (137-145) 03/30/17 08:34 Potassium 3.4 mmol/L (3.5-5.1) L 03/30/17 08:34 Chloride 114 mmol/L (98-107) H 03/30/17 08:34 Carbon Dioxide 18 mmol/L (22-30) L 03/30/17 08:34 Anion Gap 12 mmol/L 03/30/17 08:34 BUN 23 mg/dL (7-17) H 03/30/17 08:34 Creatinine 1.06 mg/dL (0.52-1.04) H 03/30/17 08:34 Est GFR (MDRD) Af Amer 59 (>60 ml/min/1.73 sqM) 03/30/17 08:34 Est GFR (MDRD) Non-Af 49 (>60 ml/min/1.73 sqM) 03/30/17 08:34 Glucose 101 mg/dL (74-99) H 03/30/17 08:34 Plasma Lactic Acid Agustin 0.6 mmol/L (0.7-2.0) L 03/27/17 23:59 Calcium 8.6 mg/dL (8.4-10.2) 03/30/17 08:34 Magnesium 2.1 mg/dL (1.6-2.3) 03/26/17 07:14 Total Bilirubin 0.2 mg/dL (0.2-1.3) 03/30/17 08:34 AST 19 U/L (14-36) 03/30/17 08:34 ALT 35 U/L (9-52) 03/30/17 08:34 Alkaline Phosphatase 77 U/L (38-126) 03/30/17 08:34 Total Protein 5.4 g/dL (6.3-8.2) L 03/30/17 08:34 Albumin 2.6 g/dL (3.5-5.0) L 03/30/17 08:34 Amylase 40 U/L (30-110) 03/24/17 17:03 Lipase 13 U/L (23-300) L 03/24/17 17:03 Urine Color Yellow 03/28/17 11:30 Urine Appearance Cloudy (Clear) H 03/28/17 11:30 Urine pH 5.5 (5.0-8.0) 03/28/17 11:30 Ur Specific [employer] 1.017 (1.001-1.035) 03/28/17 11:30 Urine Protein 1+ (Negative) H 03/28/17 11:30 Urine Glucose (UA) Negative (Negative) 03/28/17 11:30 Urine Ketones Negative (Negative) 03/28/17 11:30 Urine Blood Moderate (Negative) H 03/28/17 11:30 Urine Nitrite Positive (Negative) H 03/28/17 11:30 Urine Bilirubin Negative (Negative) 03/28/17 11:30 Urine Urobilinogen <2.0 mg/dL (<2.0) 03/28/17 11:30 Ur Leukocyte Esterase Moderate (Negative) H 03/28/17 11:30 Urine RBC 2 /hpf (0-5) 03/28/17 11:30 Urine WBC 23 /hpf (0-5) H 03/28/17 11:30 Ur Squamous Epith Cells 2 /hpf (0-4) 03/28/17 11:30 Amorphous Sediment Rare /hpf (None) H 03/24/17 17:24 Urine Bacteria Many /hpf (None) H 03/28/17 11:30 Hyaline Casts 44 /lpf (0-2) H 03/24/17 17:24 Urine Mucus Many /hpf (None) H 03/28/17 11:30 C. difficile (EIA) Intrp Positive (Negative) A 03/24/17 15:41 Microbiology 03/25/17 01:29 Blood Blood Culture - Preliminary No Growth after 120 hours 03/25/17 01:20 Blood Blood Culture - Preliminary No Growth after 120 hours 03/27/17 23:59 Blood Blood Culture - Preliminary No Growth after 48 hours 03/27/17 23:59 Blood Blood Culture - Preliminary No Growth after 48 hours 03/28/17 11:30 Urine,Catheterized Urine Culture - Final 03/28/17 19:41 Genital Gram Stain - Final 03/28/17 19:41 Genital Genital Culture - Preliminary 03/24/17 15:41 Stool Stool Culture - Final Assessment and Plan (1) Clostridium difficile infection Narrative/Plan: 86-year-old female who has a history of dementia is developed recurrence of C. diff colitis. At home was having profound amounts of diarrhea resulting in weakness, dehydration and leukocytosis. Feeling somewhat better today. The nursing staff are relating to one loose stool only so far today. There is significant concerns from the family about ongoing treatment of her disease state. At this time since she's had fecal transplantation with attempts to monitor her off of any type of antibiotic therapy to see with supportive care if she cannot have improvement. Probiotic therapy is given no and also adding cholestyramine since this is a toxin binder and may help also improve the volume of her stool. [place] stool volume reduce his dehydration and improve his functional status. Her abdomen is soft without much tenderness does not have an acute abdomen. She does not have raheem sepsis at this time.leukocytosis is due to the acute illness and should be monitored and would expect it to rapidly improve.i it is the goal at this time would be the avoidance of antibiotic therapy of any type, with supportive care she may be able to recover from the flare of C. diff. Continue with probiotic therapy, cholestyramine, and a dose of Imodium to lower the volume of stool can help with her dehydration and hypokalemia. Hypokalemia resolved Patient has had some further worsening. Fever was noted. Leukocytosis is increased. A urine specimen is sent to the laboratory which remains abnormal. However the time of the straight catheterization grossly purulent material came out of the vaginal vault with concerns of a bacterial vaginosis related to her diarrhea. Metronidazole was added and seems to be having some improvement in that there is less frequent diarrhea. Fever is resolved. Leukocytosis has resolved. Further antibiotic may be required if she truly has a urinary tract infection.Urine culture was grossly contaminated. if she does not have any further improvement may need to go back to [facility] to be seen by gastroenterology there for the next interventions. Current Visit: Yes Status: Acute Code(s): B96.89 - OTH BACTERIAL AGENTS THE CAUSE OF DISEASES CLASSD [id number] SNOMED Code(s): 853697383 (2) Dementia Current Visit: Yes Status: Acute Code(s): F03.90 - UNSPECIFIED DEMENTIA WITHOUT BEHAVIORAL DISTURBANCE SNOMED Code(s): 59249535 (3) Leukocytosis Current Visit: Yes Status: Acute Code(s): D72.829 - ELEVATED WHITE BLOOD CELL COUNT, UNSPECIFIED SNOMED Code(s): 250174275
[2017-03-31 08:12] LABS: Anisocytosis Slight; Basophils % (A) 0 %; Eosinophils % (A) 1 %; HCT 31.2 % (34.0-46.0); Hypochromasia Marked; Lymphocytes # (A) 0.3 k/uL (1.0-4.8); Lymphocytes % (A) 3 %; MCH 26.1 pg (25.0-35.0); MCHC 28.9 g/dL (31.0-37.0); MCV 90.6 fL (80.0-100.0); Monocytes # (A) 0.7 k/uL (0-1.0); Monocytes % (A) 8 %; Neutrophils % (A) 85 %; Platelet Count 283 k/uL (150-450); RBC 3.44 m/uL (3.80-5.40); RDW 18.2 % (11.5-15.5); WBC 8.3 k/uL (3.8-10.6)
[2017-03-31 08:41] LABS: ALT 38 U/L (9-52); AST 15 U/L (14-36); Albumin 2.5 g/dL (3.5-5.0); Alkaline Phosphatase 82 U/L (38-126); Anion Gap 9 mmol/L; Blood Urea Nitrogen 18 mg/dL (7-17); Calcium 8.6 mg/dL (8.4-10.2); Carbon Dioxide 21 mmol/L (22-30); Chloride 113 mmol/L (98-107); Glucose 108 mg/dL (74-99); Potassium 3.9 mmol/L (3.5-5.1); Sodium 143 mmol/L (137-145); Total Bilirubin 0.2 mg/dL (0.2-1.3); Total Protein 5.1 g/dL (6.3-8.2)
[2017-03-31] MEDS: APIXABAN 2.5 MG TABLET PO SCH ×2 (09:14→22:16)
[2017-03-31] MEDS: CHOLECALCIFEROL 1,000 UNIT TAB PO SCH (09:14)
[2017-03-31] MEDS: LACTOBACILLUS ACIDOPH & BULGAR 1 EACH PACKET PO SCH (09:15)
[2017-03-31] MEDS: CHOLESTYRAMINE (WITH SUGAR) 4 GM PACKET PO SCH ×2 (09:15→18:18)
[2017-03-31] MEDS: metroNIDAZOLE 500 MG TAB PO SCH ×3 (09:15→22:16)
[2017-03-31] MEDS: FERROUS SULFATE 325 MG TAB PO SCH ×2 (09:15→22:16)
[2017-03-31] MEDS: METOPROLOL TARTRATE 12.5 MG TAB PO SCH (09:15)
[2017-03-31] MEDS: ESCITALOPRAM 10 MG TAB PO SCH (09:15)
[2017-03-31] MEDS: LISINOPRIL 20 MG TAB PO SCH ×2 (09:15→22:16)
[2017-03-31] MEDS: ACETAMINOPHEN TAB 325 MG TAB PO PRN ×2 (10:11→16:08)
--- NOTE | 2017-03-31 10:28 | P.PN ---
Subjective Progress Note Date: 03/31/17 Elisa Li is an 86-year-old female with past medical history significant for C. difficile 2 or 3. 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 Patient's caregiver states she started having a little bit of diarrhea last night and today she was having profuse diarrhea and generalized weakness. Patient's caregiver states that the smell the diarrhea smelling like when she had her C. diff in the past. Patient denies any abdominal pain. Patient denies any fever chills. Patient denies any other symptoms. She denies a headache she denies numbness weakness patient denies lightheadedness dizziness or near syncopal episode. Patient denies any chest pain difficulty breathing or shortness of breath. White blood count was elevated at 17,000 on admission. 03/28/2017 patient still having loose stools but not as frequent. Patient had a temp of 101.4 last night white count has jumped up to 12.3. Blood cultures and urine culture ordered. Nursing staff reporting when they try to stay straight cath patient for urine sample the extent lately entered the vaginal canal there was a pop that was heard and greenish fluid was expelled. Upon my exam patient was resting comfortably. No evidence of pain or distress. Discussed case with patient's daughter. She is concerned about her mother's confusion 03/30/2017 per nursing patient is still having about 3-4 loose stools in the evening. Patient followed by infectious disease. Currently not on antibiotics for the C. diff. She is been started on Flagyl for a possible bacterial vaginosis. Patient is sitting in bedside chair. She has been crying and is very emotional. Nursing staff has notified patient's daughter. She will be up to the patient's room today. Patient is already on Lexapro. Denies any pain. She is confused 03/31/2017 patient sitting up in bed eating breakfast. Patient had 3 loose watery stools this morning. Had a total of 8 BMs yesterday. Patient was able to eat a small amount of her breakfast. Denies any chest pain or shortness of breath. He shouldn't is not as emotional this morning as yesterday. She is confused Objective - Vital Signs Vital signs: Vital Signs Temp 99.1 F 03/31/17 07:00 Pulse 75 01/05/18 07:00 Resp 16 03/31/17 07:00 BP 156/58 03/31/17 07:00 Pulse Ox 93 L 03/31/17 07:00 Intake & Output 03/30/17 03/31/17 03/31/17 18:59 06:59 18:59 Weight 77.111 kg Other: Voiding Method Bedside Commode Diaper Diaper Incontinent Incontinent # Voids 1 4 1 # Bowel Movements 2 2 1 - Exam Head normocephalic Neck supple Lungs clear to auscultation bilaterally no wheezing or crackles Heart regular rate and rhythm S1-S2, no rub or gallop Abdomen is soft nontender nondistended positive bowel sounds no hepatosplenomegaly Extremities no edema Neuro alert and orientated to name only - Labs CBC & Chem 7: 03/31/17 07:40 03/31/17 07:40 Labs: Abnormal Lab Results - Last 24 Hours (Table) 03/31/17 03/31/17 Range/Units 07:40 07:40 RBC 3.44 L (3.80-5.40) m/uL Hgb 9.0 L (11.4-16.0) gm/dL Hct 31.2 L (34.0-46.0) % MCHC 28.9 L (31.0-37.0) g/dL RDW 18.2 H (11.5-15.5) % Lymphocytes # 0.3 L (1.0-4.8) k/uL Chloride 113 H (98-107) mmol/L Carbon Dioxide 21 L (22-30) mmol/L BUN 18 H (7-17) mg/dL Glucose 108 H (74-99) mg/dL Total Protein 5.1 L (6.3-8.2) g/dL Albumin 2.5 L (3.5-5.0) g/dL Microbiology - Last 24 Hours (Table) 03/25/17 01:29 Blood Culture - Final Blood No Growth after 144 hours 03/25/17 01:20 Blood Culture - Final Blood No Growth after 144 hours 03/27/17 23:59 Blood Culture - Preliminary Blood No Growth after 72 hours 03/27/17 23:59 Blood Culture - Preliminary Blood No Growth after 72 hours Assessment and Plan Assessment: #1 Clostridium difficile colitis: Patient has had history of fecal transplants. Dr. Beck is following. Reports to avoid antibiotics and treat symptomatically. Continue Questran and probiotics. Patient is still having diarrhea. There has been some improvement in the amount of stools. Patient is being monitored to see if she needs to be transferred to [facility]. She has a history of fecal transplants that were completed at [facility] #2 acute on chronic renal failure, stage III. Likely related to dehydration from her diarrhea. Continue with IV fluids #3 underlying history of dementia #4 underlying history of chronic anemia due to diverticulosis #5 chronic atrial fibrillation. Continue Eliquis #6 underlying history of hypertension #7 hypokalemia resolved #8 . Bacterial Vaginosis. Started on Flagyl per infectious disease I performed an examination of the patient and discussed their management with the physician Collections Director. I have reviewed the Physician Collections Director's notes and agree with the documented findings and plan of care
--- NOTE | 2017-03-31 14:10 | XR ---
EXAMINATION TYPE: XR knee complete RT DATE OF EXAM: 03/31/2017 CLINICAL HISTORY: Right knee pain and swelling. TECHNIQUE: Three views of the right knee are obtained. COMPARISON: None. FINDINGS: There is no acute fracture/dislocation evident in right knee. There is moderate tricompart ment joint space loss and spurring. There is increased density suprapatellar bursa consistent with la rge joint effusion. Osseous structures are demineralized. IMPRESSION: There is demineralization with moderate tricompartment degenerative changes and large crouch prapatellar joint effusion all noted.
[2017-03-31 14:42] VITALS: BMI 27.4
--- NOTE | 2017-03-31 17:22 | P.CNOR ---
History of Present Illness - [facility] Consult date: 03/31/17 Consult reason: joint pain History of present illness: Patient is a 86 year old female who is admitted for a C diff infection. She has a complicated history with this problem, and has a GI specialist at [facility]. Currently patient is begin followed by infectious disease and internal medicine. There is report a recent fall and since admission patient has complained of right knee pain. At bedside today, patient is severely confused, review of symptoms unattainable. Patient has known history of severe dementia. Discussed with nursing her activity level since admission, she remains weak and has a hard time putting weight on that right leg Patient is cared for by family in her own home Review of Systems Constitutional: Reports as per HPI Past Medical History Past Medical History: Atrial Fibrillation, Dementia, Hypertension, Renal Disease Additional Past Medical History / Comment(s): Pt has had recurrent CDiff with fecal traansplant. IRON DEFICIENCY ANEMIA , nosebleeds, chronic renal failure, bilateral arm fractures, UTI-ECOLI(04-19-15) History of Any Multi-Drug Resistant Organisms: C-DIFF Year Discovered:: 02/13/17 MDRO Source:: diarrhea Past Surgical History: No Surgical Hx Reported Additional Past Surgical History / Comment(s): previous nose surgery (skin graft from right thigh to nose r/t nosebleeds) Past Anesthesia/Blood Transfusion Reactions: No Reported Reaction Additional Past Anesthesia/Blood Transfusion Reaction / Comm: CLAUSTERPHOBIA Past Psychological History: No Psychological Hx Reported Additional Psychological History / Comment(s): Pt's daughter lives with her. PT HAS DEMENTIA AND DAUGHTER STATES SHE GETS" SUNDOWNERS" AND CAN BECOME A BIT COMBATATIVE AT TIMES. Pt has shower chair, toilet riser and a walker. She has no home care services-declined. Smoking Status: Never smoker Past Alcohol Use History: None Reported Past Drug Use History: None Reported - Past Family History Son(s) History Unknown: Yes Family Medical History: Myocardial Infarction (NH) Father Family Medical History: Myocardial Infarction (NH) Additional Family Medical History / Comment(s): Father at age 96 yrs. Mother History Unknown: Yes Family Medical History: No Reported History Additional Family Medical History / Comment(s): Mother was healthy and when she was 71 yrs. old. Medications and Allergies Home Medications Medication Instructions Recorded Confirmed Type Ferrous Sulfate [Feosol] 325 mg PO BID 05/03/14 03/24/17 History Cholecalciferol [Vitamin D3] 2,000 unit PO DAILY 05/04/14 03/24/17 History Apixaban [Eliquis] 2.5 mg PO BID 03/21/15 03/24/17 History Escitalopram [Lexapro] 10 mg PO DAILY 03/21/15 03/24/17 History Metoprolol Tartrate 12.5 mg PO DAILY 03/21/15 03/24/17 History traZODone HCL [Desyrel] 100 mg PO HS #30 tab 03/25/15 03/24/17 Rx Cranberry Fruit Extract [Cranberry] 200 mg PO DAILY 02/11/17 03/24/17 History L.acidoph,Paracasei, B.lactis 1 cap PO DAILY 02/11/17 03/24/17 History [Probiotic] Lisinopril [Prinivil] 20 mg PO BID 02/11/17 03/24/17 History Allergies Allergy/AdvReac Type Severity Reaction Status Date / Time codeine Allergy Unknown Verified 03/24/17 14:49 Physical Examination Right lower extremity: No obvious open lesions or sores present, no erythema or increase in warmth noted Obvious effusion present over knee. Passive motion causes no significant pain Calf soft with palpation Plantar flexion, dorsiflexion, EHL, FHL intact Sensory exam to lite touch intact Log roll maneuver reproduces no pain in groin Results - Labs Labs: Abnormal Lab Results - Last 24 Hours (Table) 03/31/17 03/31/17 Range/Units 07:40 07:40 RBC 3.44 L (3.80-5.40) m/uL Hgb 9.0 L (11.4-16.0) gm/dL Hct 31.2 L (34.0-46.0) % MCHC 28.9 L (31.0-37.0) g/dL RDW 18.2 H (11.5-15.5) % Lymphocytes # 0.3 L (1.0-4.8) k/uL Chloride 113 H (98-107) mmol/L Carbon Dioxide 21 L (22-30) mmol/L BUN 18 H (7-17) mg/dL Glucose 108 H (74-99) mg/dL Total Protein 5.1 L (6.3-8.2) g/dL Albumin 2.5 L (3.5-5.0) g/dL Microbiology - Last 24 Hours (Table) 03/25/17 01:29 Blood Culture - Final Blood No Growth after 144 hours 03/25/17 01:20 Blood Culture - Final Blood No Growth after 144 hours 03/27/17 23:59 Blood Culture - Preliminary Blood No Growth after 72 hours 03/27/17 23:59 Blood Culture - Preliminary Blood No Growth after 72 hours H & H 03/24/17 03/26/17 03/27/17 Range/Units 16:40 07:14 06:51 Hgb 10.2 L 8.3 L D 8.9 L (11.4-16.0) gm/dL Hct 34.2 28.1 L 29.3 L (34.0-46.0) % 03/28/17 03/29/17 03/30/17 Range/Units 07:37 07:45 08:34 Hgb 9.5 L 8.9 L 9.4 L (11.4-16.0) gm/dL Hct 32.2 L 30.3 L 32.2 L (34.0-46.0) % 03/31/17 Range/Units 07:40 Hgb 9.0 L (11.4-16.0) gm/dL Hct 31.2 L (34.0-46.0) % Result Diagrams: 03/31/17 07:40 03/31/17 07:40 - Diagnostic results Knee x-ray: report reviewed, image reviewed Assessment and Plan Plan: Imagin views of right knee were reviewed, no fractures or dislocations present 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 Right knee effusion 3. Other medical cormobidities Plan: I was able to discuss case, including PE findings and xray with my attending Dr. Enriquez. No surgical intervention needed With active GI infection, we will avoid aspiration of knee joint Recommend icing and elevating Weightbear as tolerated, recommend walker Possible aspiration and intra articular steroid injection of right knee when illness is resolved Orthopedic standpoint patient stable for dc to rehab or home, recommend home PT/ nursing if dc home Office follow up information in chart Time with Patient: Less than 30
[2017-03-31] MEDS: SODIUM CHLORIDE 0.9% 1,000 ML IV SCH (22:15)
[2017-03-31] MEDS: traZODone HCL 100 MG TAB PO SCH (22:16)
[2017-04-01] MEDS: LISINOPRIL 20 MG TAB PO SCH ×2 (08:26→22:55)
[2017-04-01] MEDS: FERROUS SULFATE 325 MG TAB PO SCH ×2 (08:26→22:55)
[2017-04-01] MEDS: metroNIDAZOLE 500 MG TAB PO SCH ×3 (08:26→22:55)
[2017-04-01] MEDS: CHOLECALCIFEROL 1,000 UNIT TAB PO SCH (08:26)
[2017-04-01] MEDS: METOPROLOL TARTRATE 12.5 MG TAB PO SCH (08:26)
[2017-04-01] MEDS: APIXABAN 2.5 MG TABLET PO SCH ×2 (08:26→22:55)
[2017-04-01] MEDS: ESCITALOPRAM 10 MG TAB PO SCH (08:26)
[2017-04-01] MEDS: LACTOBACILLUS ACIDOPH & BULGAR 1 EACH PACKET PO SCH (08:26)
[2017-04-01 08:29] LABS: Anisocytosis Slight; Basophils % (A) 0 %; Eosinophils % (A) 0 %; HCT 28.3 % (34.0-46.0); HGB 8.3 gm/dL (11.4-16.0); Hypochromasia Marked; Lymphocytes # (A) 0.4 k/uL (1.0-4.8); Lymphocytes % (A) 3 %; MCHC 29.2 g/dL (31.0-37.0); Mean Platelet Volume 8.1; Monocytes # (A) 0.9 k/uL (0-1.0); Monocytes % (A) 8 %; Neutrophils # (A) 9.7 k/uL (1.3-7.7); Neutrophils % (A) 86 %; Platelet Count 278 k/uL (150-450); RBC 3.18 m/uL (3.80-5.40); RDW 18.2 % (11.5-15.5); WBC 11.2 k/uL (3.8-10.6)
[2017-04-01 09:01] LABS: ALT 35 U/L (9-52); AST 15 U/L (14-36); Albumin 2.2 g/dL (3.5-5.0); Alkaline Phosphatase 78 U/L (38-126); Anion Gap 6 mmol/L; Blood Urea Nitrogen 19 mg/dL (7-17); Calcium 8.4 mg/dL (8.4-10.2); Carbon Dioxide 23 mmol/L (22-30); Chloride 114 mmol/L (98-107); Glucose 112 mg/dL (74-99); Potassium 3.7 mmol/L (3.5-5.1); Sodium 143 mmol/L (137-145); Total Bilirubin 0.2 mg/dL (0.2-1.3); Total Protein 4.7 g/dL (6.3-8.2)
[2017-04-01] MEDS: CHOLESTYRAMINE (WITH SUGAR) 4 GM PACKET PO SCH ×2 (10:25→16:57)
--- NOTE | 2017-04-01 13:39 | P.PN ---
Subjective Progress Note Date: 04/01/17 Patient is awake and alert. She is still having frequent stools. She had 3 loose bowel movement since midnight. Her last one was significantly large. Objective - Vital Signs Vital signs: Vital Signs Temp 97.9 F 04/01/17 07:00 Pulse 66 04/01/17 07:00 Resp 18 04/01/17 07:00 BP 141/74 04/01/17 07:00 Pulse Ox 93 L 04/01/17 07:00 Intake & Output 03/31/17 04/01/17 04/01/17 18:59 06:59 18:59 Weight 77.111 kg Other: Voiding Method Incontinent Incontinent Incontinent # Voids 1 3 1 # Bowel Movements 3 1 1 - Exam General: The patient is awake and alert, in no distress Eye: there is normal conjunctiva bilaterally. Neck: The neck is supple, there is no JVD. Cardiovascular: Normal S1-S2, no S3-S4, no murmurs. Respiratory: Lungs clear to auscultation bilaterally Gastrointestinal: Abdomen is soft, nontender Musculoskeletal: There is no pedal edema. Neurological:. Speech is normal. Skin: Skin is warm and dry - Labs CBC & Chem 7: 04/01/17 07:46 04/01/17 07:46 Labs: Abnormal Lab Results - Last 24 Hours (Table) 04/01/17 04/01/17 Range/Units 07:46 07:46 WBC 11.2 H (3.8-10.6) k/uL RBC 3.18 L (3.80-5.40) m/uL Hgb 8.3 L (11.4-16.0) gm/dL Hct 28.3 L (34.0-46.0) % MCHC 29.2 L (31.0-37.0) g/dL RDW 18.2 H (11.5-15.5) % Neutrophils # 9.7 H (1.3-7.7) k/uL Lymphocytes # 0.4 L (1.0-4.8) k/uL Chloride 114 H (98-107) mmol/L BUN 19 H (7-17) mg/dL Glucose 112 H (74-99) mg/dL Total Protein 4.7 L (6.3-8.2) g/dL Albumin 2.2 L (3.5-5.0) g/dL Microbiology - Last 24 Hours (Table) 03/27/17 23:59 Blood Culture - Preliminary Blood No Growth after 96 hours 03/27/17 23:59 Blood Culture - Preliminary Blood No Growth after 96 hours 03/28/17 19:41 Gram Stain - Final Genital Genital Culture - Final Assessment and Plan Assessment: #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 Dr. Beck is following. Currently on Flagyl 503 times a day. Continue Questran and probiotics. Patient is still having diarrhea. May consider transfer to [facility] on Monday if not improving. #2 acute on chronic renal failure, stage III. Likely related to dehydration from her diarrhea. Continue with IV fluids #3 underlying history of dementia #4 underlying history of chronic anemia due to diverticulosis #5 chronic atrial fibrillation. Continue Eliquis #6 underlying history of hypertension #7 hypokalemia resolved #8 .Bacterial Vaginosis. Covered with Flagyl 3 bowel movement since midnight. To monitor. Supportive care.
[2017-04-01] MEDS: SODIUM CHLORIDE 0.9% 1,000 ML IV SCH (15:28)
[2017-04-01] MEDS: traZODone HCL 100 MG TAB PO SCH (22:55)
[2017-04-02] MEDS: LACTOBACILLUS ACIDOPH & BULGAR 1 EACH PACKET PO SCH (08:30)
[2017-04-02] MEDS: ESCITALOPRAM 10 MG TAB PO SCH (08:30)
[2017-04-02] MEDS: METOPROLOL TARTRATE 12.5 MG TAB PO SCH (08:30)
[2017-04-02] MEDS: LISINOPRIL 20 MG TAB PO SCH ×2 (08:30→21:36)
[2017-04-02] MEDS: APIXABAN 2.5 MG TABLET PO SCH ×2 (08:30→21:36)
[2017-04-02] MEDS: metroNIDAZOLE 500 MG TAB PO SCH ×3 (08:30→21:36)
[2017-04-02] MEDS: FERROUS SULFATE 325 MG TAB PO SCH ×2 (08:30→21:36)
[2017-04-02] MEDS: CHOLECALCIFEROL 1,000 UNIT TAB PO SCH (08:30)
[2017-04-02] MEDS: CHOLESTYRAMINE (WITH SUGAR) 4 GM PACKET PO SCH ×2 (10:08→17:05)
[2017-04-02] MEDS: SODIUM CHLORIDE 0.9% 1,000 ML IV SCH (12:02)
--- NOTE | 2017-04-02 14:11 | P.PN ---
Subjective Progress Note Date: 04/02/17 Patient's overall condition did not improve. She continues to have multiple loose bowel movement with a very large one this morning. Objective - Vital Signs Vital signs: Vital Signs Temp 98.2 F 04/02/17 07:00 Pulse 69 04/02/17 07:00 Resp 16 04/02/17 07:00 BP 165/76 04/02/17 07:00 Pulse Ox 94 L 04/02/17 07:00 Intake & Output 04/01/17 04/02/17 04/02/17 18:59 06:59 18:59 Intake Total 960 Balance 960 Intake: Oral 960 Other: Voiding Method Incontinent Incontinent Incontinent # Voids 1 3 1 # Bowel Movements 1 1 1 - Exam General: The patient is awake and alert, in no distress Eye: there is normal conjunctiva bilaterally. Neck: The neck is supple, there is no JVD. Cardiovascular: Normal S1-S2, no S3-S4, no murmurs. Respiratory: Lungs clear to auscultation bilaterally Gastrointestinal: Abdomen is soft, nontender Musculoskeletal: There is no pedal edema. Neurological:. Speech is normal. 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 Dr. Beck is following. Currently on Flagyl 500 mg times a day. Continue Questran and probiotics. Patient is still having diarrhea. May consider transfer to [facility] on Monday if not improving. #2 acute on chronic renal failure, stage III. Likely related to dehydration from her diarrhea. Continue with IV fluids #3 underlying history of dementia #4 underlying history of chronic anemia due to diverticulosis #5 chronic atrial fibrillation. Continue Eliquis #6 underlying history of hypertension #7 hypokalemia resolved #8 .Bacterial Vaginosis. 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 No aspiration at this time giving ongoing infection. Continue icing and elevation. Weightbearing as tolerated. today, I discussed her overall condition with her daughter at bedside. Her daughter appeared very frustrated as she was under the impression that her fecal transplant physician at [facility] advised that the patient should be started on oral vancomycin. Patient currently is being treated with oral Flagyl. I told her that we will try to arrange a meeting for her with Dr. Beck and Dr. Goldman tomorrow to discuss plan of care. She does not want her mother to be transferred to [facility] at this time.
[2017-04-02] MEDS: traZODone HCL 100 MG TAB PO SCH (21:36)
[2017-04-03] MEDS: ESCITALOPRAM 10 MG TAB PO SCH (08:24)
[2017-04-03] MEDS: LISINOPRIL 20 MG TAB PO SCH ×2 (08:24→20:53)
[2017-04-03] MEDS: FERROUS SULFATE 325 MG TAB PO SCH ×2 (08:24→20:53)
[2017-04-03] MEDS: APIXABAN 2.5 MG TABLET PO SCH ×2 (08:24→20:53)
[2017-04-03] MEDS: METOPROLOL TARTRATE 12.5 MG TAB PO SCH (08:24)
[2017-04-03] MEDS: metroNIDAZOLE 500 MG TAB PO SCH ×3 (08:24→20:53)
[2017-04-03] MEDS: CHOLECALCIFEROL 1,000 UNIT TAB PO SCH (08:24)
[2017-04-03] MEDS: CHOLESTYRAMINE (WITH SUGAR) 4 GM PACKET PO SCH ×2 (08:25→18:01)
[2017-04-03] MEDS: LACTOBACILLUS ACIDOPH & BULGAR 1 EACH PACKET PO SCH (08:25)
[2017-04-03] MEDS: SODIUM CHLORIDE 0.9% 1,000 ML IV SCH (08:47)
[2017-04-03 09:18] LABS: ALT 33 U/L (9-52); AST 15 U/L (14-36); Albumin 2.4 g/dL (3.5-5.0); Alkaline Phosphatase 83 U/L (38-126); Anion Gap 9 mmol/L; Blood Urea Nitrogen 17 mg/dL (7-17); Calcium 8.3 mg/dL (8.4-10.2); Carbon Dioxide 22 mmol/L (22-30); Chloride 110 mmol/L (98-107); Glucose 113 mg/dL (74-99); Potassium 3.4 mmol/L (3.5-5.1); Sodium 141 mmol/L (137-145); Total Bilirubin 0.2 mg/dL (0.2-1.3); Total Protein 5.1 g/dL (6.3-8.2)
[2017-04-03 09:28] LABS: Anisocytosis Slight; Basophils % (A) 0 %; Eosinophils % (A) 0 %; HCT 31.8 % (34.0-46.0); HGB 9.6 gm/dL (11.4-16.0); Hypochromasia Marked; Lymphocytes # (A) 0.4 k/uL (1.0-4.8); Lymphocytes % (A) 4 %; MCH 26.7 pg (25.0-35.0); MCHC 30.1 g/dL (31.0-37.0); MCV 88.7 fL (80.0-100.0); Mean Platelet Volume 7.4; Monocytes # (A) 0.5 k/uL (0-1.0); Monocytes % (A) 5 %; Neutrophils # (A) 8.2 k/uL (1.3-7.7); Neutrophils % (A) 88 %; Platelet Count 399 k/uL (150-450); RBC 3.58 m/uL (3.80-5.40); RDW 17.1 % (11.5-15.5); WBC 9.3 k/uL (3.8-10.6)
[2017-04-03] MEDS ORDERED: Potassium Replacement Protocol 1 EACH MISC MISCELLANE PRN (09:30)
[2017-04-03] MEDS: POTASSIUM CHLORIDE ER 20 MEQ TAB.ER PO SCH ×2 (09:50→11:42)
--- NOTE | 2017-04-03 13:07 | P.PN ---
Subjective Progress Note Date: 04/03/17 Elisa Li is an 86-year-old female with past medical history significant for C. difficile 2 or 3. 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 Patient's caregiver states she started having a little bit of diarrhea last night and today she was having profuse diarrhea and generalized weakness. Patient's caregiver states that the smell the diarrhea smelling like when she had her C. diff in the past. Patient denies any abdominal pain. Patient denies any fever chills. Patient denies any other symptoms. She denies a headache she denies numbness weakness patient denies lightheadedness dizziness or near syncopal episode. Patient denies any chest pain difficulty breathing or shortness of breath. White blood count was elevated at 17,000 on admission. 03/28/2017 patient still having loose stools but not as frequent. Patient had a temp of 101.4 last night white count has jumped up to 12.3. Blood cultures and urine culture ordered. Nursing staff reporting when they try to stay straight cath patient for urine sample the extent lately entered the vaginal canal there was a pop that was heard and greenish fluid was expelled. Upon my exam patient was resting comfortably. No evidence of pain or distress. Discussed case with patient's daughter. She is concerned about her mother's confusion 03/30/2017 per nursing patient is still having about 3-4 loose stools in the evening. Patient followed by infectious disease. Currently not on antibiotics for the C. diff. She is been started on Flagyl for a possible bacterial vaginosis. Patient is sitting in bedside chair. She has been crying and is very emotional. Nursing staff has notified patient's daughter. She will be up to the patient's room today. Patient is already on Lexapro. Denies any pain. She is confused 03/31/2017 patient sitting up in bed eating breakfast. Patient had 3 loose watery stools this morning. Had a total of 8 BMs yesterday. Patient was able to eat a small amount of her breakfast. Denies any chest pain or shortness of breath. He shouldn't is not as emotional this morning as yesterday. She is confused 04/03/2017 patient lying in bed comfortably. She had 3 bowel movements yesterday and one bowel movement this morning. Stools are still loose but are a thicker consistency. And are less frequent. Patient is showing some improvement. Case discussed with daughter at bedside Objective - Vital Signs Vital signs: Vital Signs Temp 98.1 F 04/03/17 07:00 Pulse 72 04/03/17 07:00 Resp 18 04/03/17 07:00 BP 162/79 04/03/17 07:00 Pulse Ox 96 04/03/17 07:00 Intake & Output 04/02/17 04/03/17 04/03/17 18:59 06:59 18:59 Other: Voiding Method Incontinent Incontinent Bedside Commode Incontinent # Voids 1 2 1 # Bowel Movements 1 1 1 - Exam Head normocephalic Neck supple Lungs clear to auscultation bilaterally no wheezing or crackles Heart regular rate and rhythm S1-S2, no rub or gallop Abdomen is soft nontender nondistended positive bowel sounds no hepatosplenomegaly Extremities no edema Neuro alert and orientated to name only - Labs CBC & Chem 7: 04/03/17 08:49 04/03/17 08:49 Labs: Abnormal Lab Results - Last 24 Hours (Table) 04/03/17 04/03/17 Range/Units 08:49 08:49 RBC 3.58 L (3.80-5.40) m/uL Hgb 9.6 L (11.4-16.0) gm/dL Hct 31.8 L (34.0-46.0) % MCHC 30.1 L (31.0-37.0) g/dL RDW 17.1 H (11.5-15.5) % Neutrophils # 8.2 H (1.3-7.7) k/uL Lymphocytes # 0.4 L (1.0-4.8) k/uL Potassium 3.4 L (3.5-5.1) mmol/L Chloride 110 H (98-107) mmol/L Glucose 113 H (74-99) mg/dL Calcium 8.3 L (8.4-10.2) mg/dL Total Protein 5.1 L (6.3-8.2) g/dL Albumin 2.4 L (3.5-5.0) g/dL Microbiology - Last 24 Hours (Table) 03/27/17 23:59 Blood Culture - Final Blood No Growth after 144 hours 03/27/17 23:59 Blood Culture - Final Blood No Growth after 144 hours Assessment and Plan Assessment: #1 Clostridium difficile colitis: Patient has had history of fecal transplants. Dr. Beck is following. Reports to avoid antibiotics and treat symptomatically. Continue Questran and probiotics. Stools are becoming less frequent. She is showing improvement. Flagyl may be helping with her symptoms. Continue to monitor #2 acute on chronic renal failure, stage III. Likely related to dehydration from her diarrhea. Continue with IV fluids #3 underlying history of dementia #4 underlying history of chronic anemia due to diverticulosis #5 chronic atrial fibrillation. Continue Eliquis #6 underlying history of hypertension #7 hypokalemia patient receiving potassium supplement #8 . Bacterial Vaginosis. 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 Seen by orthopedics. No surgical intervention. Or the ones to avoid aspiration of right knee until GI infection has cleared up. Anticipate discharge to [facility] within the next 1-2 days I performed an examination of the patient and discussed their management with the physician Assistant Professor Of Art. I have reviewed the Physician Assistant Professor Of Art's notes and agree with the documented findings and plan of care
[2017-04-03] MEDS ORDERED: POTASSIUM CHLORIDE ER 20 MEQ TAB.ER PO STA (14:15)
[2017-04-03] MEDS: traZODone HCL 100 MG TAB PO SCH (20:53)
--- NOTE | 2017-04-03 22:47 | P.PN ---
Subjective Progress Note Date: 04/03/17 Principal diagnosis: Diarrhea and dehydration 86-year-old female patient of Dr. Goldman, is known to Dr. Moss to hospital with recurrence of diarrhea. Review of the data reveals that this pleasant but demented woman has had ongoing difficulties with diarrhea over this past year. It appears that she's had fecal transplantation performed in 2 events [facility].she is cared for by her children in their homes. Apparently she started developed profuse amount of diarrhea and became quite weak. Because the stool smell like C. diff she was brought to hospitaland testing did reveal evidence of ongoing evidence of C. diff. Because she was symptomatic she was admitted and has received fluids. Because of the concerns of ongoing infection the ID evaluation was requested. The patient is very pleasant but demented.14 since coming to Hospital to profuse nature of her diarrhea starting to improve. She is feeling slightly better. Patient was having some improvement but again had fever and some increased leukocytosis. Nursing staff related today is significant amount of purulent drainage from the vaginal vault when a Tsang catheter was placed. Severe hypokalemia has improved. With her fever her mentation has again worsened. The patient has had several bouts of diarrhea today. Mentation remains poor. some increased swelling to the right lower portion was noted. Duplexes been ordered. Negative for DVT. Frequency of stools has improved today only 2 stools noted. Is more awake and interactive. Objective - Vital Signs Vital signs: Vital Signs Temp 98.6 F 04/03/17 15:00 Pulse 120 H 04/03/17 15:00 Resp 18 04/03/17 15:00 BP 124/73 04/03/17 15:00 Pulse Ox 95 04/03/17 15:00 Intake & Output 04/03/17 04/03/17 04/04/17 06:59 18:59 06:59 Other: Voiding Method Incontinent Bedside Commode Incontinent # Voids 2 1 # Bowel Movements 1 1 - Exam 86-year-old female pleasantly demented and is comfortable at this time. HEENT: Anicteric conjunctiva are pink and moist nasal mucosa grossly intact without significant lesions, there is no thrush. Neck: The neck is supple without significant lymphadenopathy or thyromegaly. Lungs: Good bilateral air entry without significant crackles or wheezing. There is no significant bronchial sounds. There is no egophony or dullness. Heart: Regular rate and rhythm with an audible S1-S2, no S3 no S4. There is no significant murmur click or rub, PMI was nondisplaced. Abdomen: Positive bowel sounds soft and has minimal bilateral lower quadrant tenderness without palpable masses or organomegaly. There was no guarding or rebound. Extremities: The upper extremities have excellent pulses they are symmetric, no significant petechiae or telangiectasia. No splinter hemorrhages were noted. The lower extremities Reveal evidence of the increased size of the right lower extremity but noted DVT was negative by duplex The peripheral pulses were 2+ and symmetric. Neuro: Arousable but confused but not in distress - Labs CBC & Chem 7: 04/03/17 08:49 04/03/17 16:02 Labs: Abnormal Lab Results - Last 24 Hours (Table) 04/03/17 04/03/17 Range/Units 08:49 08:49 RBC 3.58 L (3.80-5.40) m/uL Hgb 9.6 L (11.4-16.0) gm/dL Hct 31.8 L (34.0-46.0) % MCHC 30.1 L (31.0-37.0) g/dL RDW 17.1 H (11.5-15.5) % Neutrophils # 8.2 H (1.3-7.7) k/uL Lymphocytes # 0.4 L (1.0-4.8) k/uL Potassium 3.4 L (3.5-5.1) mmol/L Chloride 110 H (98-107) mmol/L Glucose 113 H (74-99) mg/dL Calcium 8.3 L (8.4-10.2) mg/dL Total Protein 5.1 L (6.3-8.2) g/dL Albumin 2.4 L (3.5-5.0) g/dL Microbiology - Last 24 Hours (Table) 03/27/17 23:59 Blood Culture - Final Blood No Growth after 144 hours 03/27/17 23:59 Blood Culture - Final Blood No Growth after 144 hours Laboratory Results WBC 9.3 k/uL (3.8-10.6) 04/03/17 08:49 RBC 3.58 m/uL (3.80-5.40) L 04/03/17 08:49 Hgb 9.6 gm/dL (11.4-16.0) L 04/03/17 08:49 Hct 31.8 % (34.0-46.0) L 04/03/17 08:49 MCV 88.7 fL (80.0-100.0) 04/03/17 08:49 MCH 26.7 pg (25.0-35.0) 04/03/17 08:49 MCHC 30.1 g/dL (31.0-37.0) L 04/03/17 08:49 RDW 17.1 % (11.5-15.5) H 04/03/17 08:49 Plt Count 399 k/uL (150-450) 04/03/17 08:49 Neutrophils % 88 % 04/03/17 08:49 Lymphocytes % 4 % 04/03/17 08:49 Monocytes % 5 % 04/03/17 08:49 Eosinophils % 0 % 04/03/17 08:49 Basophils % 0 % 04/03/17 08:49 Neutrophils # 8.2 k/uL (1.3-7.7) H 04/03/17 08:49 Lymphocytes # 0.4 k/uL (1.0-4.8) L 04/03/17 08:49 Monocytes # 0.5 k/uL (0-1.0) 04/03/17 08:49 Eosinophils # 0.0 k/uL (0-0.7) 04/03/17 08:49 Basophils # 0.0 k/uL (0-0.2) 04/03/17 08:49 Hypochromasia Marked 04/03/17 08:49 Anisocytosis Slight 04/03/17 08:49 Sodium 141 mmol/L (137-145) 04/03/17 08:49 Potassium 3.8 mmol/L (3.5-5.1) 04/03/17 16:02 Chloride 110 mmol/L (98-107) H 04/03/17 08:49 Carbon Dioxide 22 mmol/L (22-30) 04/03/17 08:49 Anion Gap 9 mmol/L 04/03/17 08:49 BUN 17 mg/dL (7-17) 04/03/17 08:49 Creatinine 0.82 mg/dL (0.52-1.04) 04/03/17 08:49 Est GFR (MDRD) Af Amer >60 (>60 ml/min/1.73 sqM) 04/03/17 08:49 Est GFR (MDRD) Non-Af >60 (>60 ml/min/1.73 sqM) 04/03/17 08:49 Glucose 113 mg/dL (74-99) H 04/03/17 08:49 Plasma Lactic Acid Agustin 0.6 mmol/L (0.7-2.0) L 03/27/17 23:59 Calcium 8.3 mg/dL (8.4-10.2) L 04/03/17 08:49 Magnesium 2.1 mg/dL (1.6-2.3) 03/26/17 07:14 Total Bilirubin 0.2 mg/dL (0.2-1.3) 04/03/17 08:49 AST 15 U/L (14-36) 04/03/17 08:49 ALT 33 U/L (9-52) 04/03/17 08:49 Alkaline Phosphatase 83 U/L (38-126) 04/03/17 08:49 Total Protein 5.1 g/dL (6.3-8.2) L 04/03/17 08:49 Albumin 2.4 g/dL (3.5-5.0) L 04/03/17 08:49 Amylase 40 U/L (30-110) 03/24/17 17:03 Lipase 13 U/L (23-300) L 03/24/17 17:03 Urine Color Yellow 03/28/17 11:30 Urine Appearance Cloudy (Clear) H 03/28/17 11:30 Urine pH 5.5 (5.0-8.0) 03/28/17 11:30 Ur Specific Spencer 1.017 (1.001-1.035) 03/28/17 11:30 Urine Protein 1+ (Negative) H 03/28/17 11:30 Urine Glucose (UA) Negative (Negative) 03/28/17 11:30 Urine Ketones Negative (Negative) 03/28/17 11:30 Urine Blood Moderate (Negative) H 03/28/17 11:30 Urine Nitrite Positive (Negative) H 03/28/17 11:30 Urine Bilirubin Negative (Negative) 03/28/17 11:30 Urine Urobilinogen <2.0 mg/dL (<2.0) 03/28/17 11:30 Ur Leukocyte Esterase Moderate (Negative) H 03/28/17 11:30 Urine RBC 2 /hpf (0-5) 03/28/17 11:30 Urine WBC 23 /hpf (0-5) H 03/28/17 11:30 Ur Squamous Epith Cells 2 /hpf (0-4) 03/28/17 11:30 Amorphous Sediment Rare /hpf (None) H 03/24/17 17:24 Urine Bacteria Many /hpf (None) H 03/28/17 11:30 Hyaline Casts 44 /lpf (0-2) H 03/24/17 17:24 Urine Mucus Many /hpf (None) H 03/28/17 11:30 C. difficile (EIA) Intrp Positive (Negative) A 03/24/17 15:41 Microbiology 03/27/17 23:59 Blood Blood Culture - Final No Growth after 144 hours 03/27/17 23:59 Blood Blood Culture - Final No Growth after 144 hours 03/28/17 19:41 Genital Gram Stain - Final 03/28/17 19:41 Genital Genital Culture - Final 03/25/17 01:29 Blood Blood Culture - Final No Growth after 144 hours 03/25/17 01:20 Blood Blood Culture - Final No Growth after 144 hours 03/28/17 11:30 Urine,Catheterized Urine Culture - Final 03/24/17 15:41 Stool Stool Culture - Final Assessment and Plan (1) Clostridium difficile infection Narrative/Plan: 86-year-old female who has a history of dementia is developed recurrence of C. diff colitis. At home was having profound amounts of diarrhea resulting in weakness, dehydration and leukocytosis. Feeling somewhat better today. The nursing staff are relating to one loose stool only so far today. There is significant concerns from the family about ongoing treatment of her disease state. At this time since she's had fecal transplantation with attempts to monitor her off of any type of antibiotic therapy to see with supportive care if she cannot have improvement. Probiotic therapy is given no and also adding cholestyramine since this is a toxin binder and may help also improve the volume of her stool. [place] stool volume reduce his dehydration and improve his functional status. Her abdomen is soft without much tenderness does not have an acute abdomen. She does not have raheem sepsis at this time.leukocytosis is due to the acute illness and should be monitored and would expect it to rapidly improve.i it is the goal at this time would be the avoidance of antibiotic therapy of any type, with supportive care she may be able to recover from the flare of C. diff. Continue with probiotic therapy, cholestyramine, and a dose of Imodium to lower the volume of stool can help with her dehydration and hypokalemia. Hypokalemia resolved Patient has had some further worsening. Fever was noted. Leukocytosis had increased. A urine specimen is sent to the laboratory which remains abnormal. However the time of the straight catheterization grossly purulent material came out of the vaginal vault with concerns of a bacterial vaginosis related to her diarrhea. Metronidazole was added and since she is showing improvement in that there is less frequent diarrhea. Fever is resolved. Leukocytosis has resolved. Further antibiotic may be required if she truly has a urinary tract infection.Urine culture was grossly contaminated. if she does not have any further improvement may need to go back to [facility] to be seen by gastroenterology there for the next interventions. Current Visit: Yes Status: Acute Code(s): B96.89 - OTH BACTERIAL AGENTS THE CA[facility]EASES [facility] SNOMED Code(s): 722713216 (2) Dementia Current Visit: Yes Status: Acute Code(s): F03.90 - UNSPECIFIED DEMENTIA WITHOUT BEHAVIORAL DISTURBANCE SNOMED Code(s): 81682320 (3) Leukocytosis Current Visit: Yes Status: Acute Code(s): D72.829 - ELEVATED WHITE BLOOD CELL COUNT, UNSPECIFIED SNOMED Code(s): 521037541
[2017-04-04] MEDS: SODIUM CHLORIDE 0.9% 1,000 ML IV SCH (04:27)
[2017-04-04] MEDS: metroNIDAZOLE 500 MG TAB PO SCH ×4 (08:51→23:24)
[2017-04-04] MEDS: METOPROLOL TARTRATE 12.5 MG TAB PO SCH (08:51)
[2017-04-04] MEDS: APIXABAN 2.5 MG TABLET PO SCH ×3 (08:51→23:22)
[2017-04-04] MEDS: LISINOPRIL 20 MG TAB PO SCH ×3 (08:51→23:23)
[2017-04-04] MEDS: CHOLECALCIFEROL 1,000 UNIT TAB PO SCH (08:51)
[2017-04-04] MEDS: FERROUS SULFATE 325 MG TAB PO SCH ×3 (08:51→23:23)
[2017-04-04] MEDS: LACTOBACILLUS ACIDOPH & BULGAR 1 EACH PACKET PO SCH (08:51)
[2017-04-04 09:07] LABS: Anisocytosis Slight; Basophils % (A) 0 %; Eosinophils # (A) 0.1 k/uL (0-0.7); Eosinophils % (A) 1 %; HCT 29.4 % (34.0-46.0); HGB 8.8 gm/dL (11.4-16.0); Hypochromasia Marked; Lymphocytes # (A) 0.4 k/uL (1.0-4.8); Lymphocytes % (A) 6 %; MCH 26.1 pg (25.0-35.0); MCHC 29.8 g/dL (31.0-37.0); MCV 87.3 fL (80.0-100.0); Mean Platelet Volume 7.7; Monocytes # (A) 0.5 k/uL (0-1.0); Monocytes % (A) 8 %; Neutrophils # (A) 5.5 k/uL (1.3-7.7); Neutrophils % (A) 82 %; Platelet Count 425 k/uL (150-450); RBC 3.37 m/uL (3.80-5.40); RDW 18.3 % (11.5-15.5); WBC 6.7 k/uL (3.8-10.6)
[2017-04-04 09:28] LABS: ALT 29 U/L (9-52); AST 16 U/L (14-36); Albumin 2.3 g/dL (3.5-5.0); Alkaline Phosphatase 78 U/L (38-126); Anion Gap 4 mmol/L; Blood Urea Nitrogen 17 mg/dL (7-17); Calcium 8.2 mg/dL (8.4-10.2); Carbon Dioxide 27 mmol/L (22-30); Chloride 112 mmol/L (98-107); Glucose 106 mg/dL (74-99); Potassium 3.7 mmol/L (3.5-5.1); Sodium 143 mmol/L (137-145); Total Bilirubin 0.2 mg/dL (0.2-1.3)
[2017-04-04] MEDS: CHOLESTYRAMINE (WITH SUGAR) 4 GM PACKET PO SCH ×2 (11:25→16:48)
[2017-04-04] MEDS: ESCITALOPRAM 10 MG TAB PO SCH (11:25)
--- NOTE | 2017-04-04 14:36 | P.PN ---
Subjective Progress Note Date: 04/04/17 Elisa Li is an 86-year-old female with past medical history significant for C. difficile 2 or 3. 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 Patient's caregiver states she started having a little bit of diarrhea last night and today she was having profuse diarrhea and generalized weakness. Patient's caregiver states that the smell the diarrhea smelling like when she had her C. diff in the past. Patient denies any abdominal pain. Patient denies any fever chills. Patient denies any other symptoms. She denies a headache she denies numbness weakness patient denies lightheadedness dizziness or near syncopal episode. Patient denies any chest pain difficulty breathing or shortness of breath. White blood count was elevated at 17,000 on admission. 03/28/2017 patient still having loose stools but not as frequent. Patient had a temp of 101.4 last night white count has jumped up to 12.3. Blood cultures and urine culture ordered. Nursing staff reporting when they try to stay straight cath patient for urine sample the extent lately entered the vaginal canal there was a pop that was heard and greenish fluid was expelled. Upon my exam patient was resting comfortably. No evidence of pain or distress. Discussed case with patient's daughter. She is concerned about her mother's confusion 03/30/2017 per nursing patient is still having about 3-4 loose stools in the evening. Patient followed by infectious disease. Currently not on antibiotics for the C. diff. She is been started on Flagyl for a possible bacterial vaginosis. Patient is sitting in bedside chair. She has been crying and is very emotional. Nursing staff has notified patient's daughter. She will be up to the patient's room today. Patient is already on Lexapro. Denies any pain. She is confused 03/31/2017 patient sitting up in bed eating breakfast. Patient had 3 loose watery stools this morning. Had a total of 8 BMs yesterday. Patient was able to eat a small amount of her breakfast. Denies any chest pain or shortness of breath. He shouldn't is not as emotional this morning as yesterday. She is confused 04/03/2017 patient lying in bed comfortably. She had 3 bowel movements yesterday and one bowel movement this morning. Stools are still loose but are a thicker consistency. And are less frequent. Patient is showing some improvement. Case discussed with daughter at bedside 04/04/2017 patient lying in bed comfortably. Patient had a total of 5 bowel movements yesterday and one this morning. They're still loose. Denies any pain. Resting comfortably. Objective - Vital Signs Vital signs: Vital Signs Temp 99.0 F 04/04/17 07:00 Pulse 74 04/04/17 07:00 Resp 18 04/04/17 07:00 BP 134/82 04/04/17 07:00 Pulse Ox 92 L 04/04/17 07:00 Intake & Output 04/03/17 04/04/17 04/04/17 18:59 06:59 18:59 Other: Voiding Method Bedside Commode Incontinent Incontinent Incontinent # Voids 1 2 # Bowel Movements 1 2 - Exam Head normocephalic Neck supple Lungs clear to auscultation bilaterally no wheezing or crackles Heart regular rate and rhythm S1-S2, no rub or gallop Abdomen is soft nontender nondistended positive bowel sounds no hepatosplenomegaly Extremities no edema Neuro sleeping comfortably - Labs CBC & Chem 7: 04/04/17 08:43 04/04/17 08:43 Labs: Abnormal Lab Results - Last 24 Hours (Table) 04/04/17 04/04/17 Range/Units 08:43 08:43 RBC 3.37 L (3.80-5.40) m/uL Hgb 8.8 L (11.4-16.0) gm/dL Hct 29.4 L (34.0-46.0) % MCHC 29.8 L (31.0-37.0) g/dL RDW 18.3 H (11.5-15.5) % Lymphocytes # 0.4 L (1.0-4.8) k/uL Chloride 112 H (98-107) mmol/L Glucose 106 H (74-99) mg/dL Calcium 8.2 L (8.4-10.2) mg/dL Total Protein 5.0 L (6.3-8.2) g/dL Albumin 2.3 L (3.5-5.0) g/dL Assessment and Plan Assessment: #1 Clostridium difficile colitis: Patient has had history of fecal transplants. Dr. Beck is following. Reports to avoid antibiotics and treat symptomatically. Continue Questran and probiotics. Stools are becoming less frequent. She is showing improvement. Flagyl may be helping with her symptoms. Continue to monitor. Case discussed with infectious disease. Continue to monitor off of antibiotics #2 acute on chronic renal failure, stage III. Likely related to dehydration from her diarrhea. Continue with IV fluids #3 underlying history of dementia #4 underlying history of chronic anemia due to diverticulosis #5 chronic atrial fibrillation. Continue Eliquis #6 underlying history of hypertension #7 hypokalemia patient receiving potassium supplement #8 . Bacterial Vaginosis. 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 Seen by orthopedics. No surgical intervention. Or the ones to avoid aspiration of right knee until GI infection has cleared up. Anticipate discharge to [facility] within the next 1-2 days I performed an examination of the patient and discussed their management with the physician Component Assembler. I have reviewed the Physician Component Assembler's notes and agree with the documented findings and plan of care
[2017-04-04] MEDS: traZODone HCL 100 MG TAB PO SCH ×2 (21:52→23:23)
--- NOTE | 2017-04-04 23:53 | P.PN ---
Subjective Progress Note Date: 04/04/17 Principal diagnosis: Diarrhea and dehydration 86-year-old female patient of Dr. Goldman, is known to Dr. Moss to hospital with recurrence of diarrhea. Review of the data reveals that this pleasant but demented woman has had ongoing difficulties with diarrhea over this past year. 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 Apparently she started developed profuse amount of diarrhea and became quite weak. Because the stool smell like C. diff she was brought to hospitaland testing did reveal evidence of ongoing evidence of C. diff. Because she was symptomatic she was admitted and has received fluids. Because of the concerns of ongoing infection the ID evaluation was requested. The patient is very pleasant but demented.14 since coming to Hospital to profuse nature of her diarrhea starting to improve. She is feeling slightly better. Patient was having some improvement but again had fever and some increased leukocytosis. Nursing staff related today is significant amount of purulent drainage from the vaginal vault when a Tsang catheter was placed. Severe hypokalemia has improved. With her fever her mentation has again worsened. The patient has had several bouts of diarrhea today. Mentation remains poor. some increased swelling to the right lower portion was noted. Duplexes been ordered. Negative for DVT. Frequency of stools has improved today only 2 stools noted. Is more awake and interactive. Patient's family is content that she showing improvement. Agree that she'll need to go to extended care to receive some therapy. Hopefully we'll be able to rapidly have a joint aspiration and steroid injection when she is further improved. This will hopefully get her up and moving. Objective - Vital Signs Vital signs: Vital Signs Temp 98.4 F 04/04/17 15:00 Pulse 68 04/04/17 22:00 Resp 18 04/04/17 15:00 BP 181/85 04/04/17 22:00 Pulse Ox 95 04/04/17 15:00 Intake & Output 04/04/17 04/04/17 04/05/17 06:59 18:59 06:59 Weight 77.111 kg Other: Voiding Method Incontinent Incontinent # Voids 2 2 1 # Bowel Movements 2 1 1 - Exam 86-year-old female pleasantly demented and is comfortable at this time. HEENT: Anicteric conjunctiva are pink and moist nasal mucosa grossly intact without significant lesions, there is no thrush. Neck: The neck is supple without significant lymphadenopathy or thyromegaly. Lungs: Good bilateral air entry without significant crackles or wheezing. There is no significant bronchial sounds. There is no egophony or dullness. Heart: Regular rate and rhythm with an audible S1-S2, no S3 no S4. There is no significant murmur click or rub, PMI was nondisplaced. Abdomen: Positive bowel sounds soft and has minimal bilateral lower quadrant tenderness without palpable masses or organomegaly. There was no guarding or rebound. Extremities: The upper extremities have excellent pulses they are symmetric, no significant petechiae or telangiectasia. No splinter hemorrhages were noted. The lower extremities Reveal evidence of the increased size of the right lower extremity but noted DVT was negative by duplex The peripheral pulses were 2+ and symmetric. There is evidence of palpable effusions of both knees but the left is much more painful than the right. Neuro: Arousable but confused but not in distress - Labs CBC & Chem 7: 04/04/17 08:43 04/04/17 08:43 Labs: Abnormal Lab Results - Last 24 Hours (Table) 04/04/17 04/04/17 Range/Units 08:43 08:43 RBC 3.37 L (3.80-5.40) m/uL Hgb 8.8 L (11.4-16.0) gm/dL Hct 29.4 L (34.0-46.0) % MCHC 29.8 L (31.0-37.0) g/dL RDW 18.3 H (11.5-15.5) % Lymphocytes # 0.4 L (1.0-4.8) k/uL Chloride 112 H (98-107) mmol/L Glucose 106 H (74-99) mg/dL Calcium 8.2 L (8.4-10.2) mg/dL Total Protein 5.0 L (6.3-8.2) g/dL Albumin 2.3 L (3.5-5.0) g/dL Laboratory Results WBC 6.7 k/uL (3.8-10.6) 04/04/17 08:43 RBC 3.37 m/uL (3.80-5.40) L 04/04/17 08:43 Hgb 8.8 gm/dL (11.4-16.0) L 04/04/17 08:43 Hct 29.4 % (34.0-46.0) L 04/04/17 08:43 MCV 87.3 fL (80.0-100.0) 04/04/17 08:43 MCH 26.1 pg (25.0-35.0) 04/04/17 08:43 MCHC 29.8 g/dL (31.0-37.0) L 04/04/17 08:43 RDW 18.3 % (11.5-15.5) H 04/04/17 08:43 Plt Count 425 k/uL (150-450) 04/04/17 08:43 Neutrophils % 82 % 04/04/17 08:43 Lymphocytes % 6 % 04/04/17 08:43 Monocytes % 8 % 04/04/17 08:43 Eosinophils % 1 % 04/04/17 08:43 Basophils % 0 % 04/04/17 08:43 Neutrophils # 5.5 k/uL (1.3-7.7) 04/04/17 08:43 Lymphocytes # 0.4 k/uL (1.0-4.8) L 04/04/17 08:43 Monocytes # 0.5 k/uL (0-1.0) 04/04/17 08:43 Eosinophils # 0.1 k/uL (0-0.7) 04/04/17 08:43 Basophils # 0.0 k/uL (0-0.2) 04/04/17 08:43 Hypochromasia Marked 04/04/17 08:43 Anisocytosis Slight 04/04/17 08:43 Sodium 143 mmol/L (137-145) 04/04/17 08:43 Potassium 3.7 mmol/L (3.5-5.1) 04/04/17 08:43 Chloride 112 mmol/L (98-107) H 04/04/17 08:43 Carbon Dioxide 27 mmol/L (22-30) 04/04/17 08:43 Anion Gap 4 mmol/L 04/04/17 08:43 BUN 17 mg/dL (7-17) 04/04/17 08:43 Creatinine 0.90 mg/dL (0.52-1.04) 04/04/17 08:43 Est GFR (MDRD) Af Amer >60 (>60 ml/min/1.73 sqM) 04/04/17 08:43 Est GFR (MDRD) Non-Af 59 (>60 ml/min/1.73 sqM) 04/04/17 08:43 Glucose 106 mg/dL (74-99) H 04/04/17 08:43 Plasma Lactic Acid Agustin 0.6 mmol/L (0.7-2.0) L 03/27/17 23:59 Calcium 8.2 mg/dL (8.4-10.2) L 04/04/17 08:43 Magnesium 2.1 mg/dL (1.6-2.3) 03/26/17 07:14 Total Bilirubin 0.2 mg/dL (0.2-1.3) 04/04/17 08:43 AST 16 U/L (14-36) 04/04/17 08:43 ALT 29 U/L (9-52) 04/04/17 08:43 Alkaline Phosphatase 78 U/L (38-126) 04/04/17 08:43 Total Protein 5.0 g/dL (6.3-8.2) L 04/04/17 08:43 Albumin 2.3 g/dL (3.5-5.0) L 04/04/17 08:43 Amylase 40 U/L (30-110) 03/24/17 17:03 Lipase 13 U/L (23-300) L 03/24/17 17:03 Urine Color Yellow 03/28/17 11:30 Urine Appearance Cloudy (Clear) H 03/28/17 11:30 Urine pH 5.5 (5.0-8.0) 03/28/17 11:30 Ur Specific Iraan 1.017 (1.001-1.035) 03/28/17 11:30 Urine Protein 1+ (Negative) H 03/28/17 11:30 Urine Glucose (UA) Negative (Negative) 03/28/17 11:30 Urine Ketones Negative (Negative) 03/28/17 11:30 Urine Blood Moderate (Negative) H 03/28/17 11:30 Urine Nitrite Positive (Negative) H 03/28/17 11:30 Urine Bilirubin Negative (Negative) 03/28/17 11:30 Urine Urobilinogen <2.0 mg/dL (<2.0) 03/28/17 11:30 Ur Leukocyte Esterase Moderate (Negative) H 03/28/17 11:30 Urine RBC 2 /hpf (0-5) 03/28/17 11:30 Urine WBC 23 /hpf (0-5) H 03/28/17 11:30 Ur Squamous Epith Cells 2 /hpf (0-4) 03/28/17 11:30 Amorphous Sediment Rare /hpf (None) H 03/24/17 17:24 Urine Bacteria Many /hpf (None) H 03/28/17 11:30 Hyaline Casts 44 /lpf (0-2) H 03/24/17 17:24 Urine Mucus Many /hpf (None) H 03/28/17 11:30 C. difficile (EIA) Intrp Positive (Negative) A 03/24/17 15:41 Microbiology 03/27/17 23:59 Blood Blood Culture - Final No Growth after 144 hours 03/27/17 23:59 Blood Blood Culture - Final No Growth after 144 hours 03/28/17 19:41 Genital Gram Stain - Final 03/28/17 19:41 Genital Genital Culture - Final 03/25/17 01:29 Blood Blood Culture - Final No Growth after 144 hours 03/25/17 01:20 Blood Blood Culture - Final No Growth after 144 hours 03/28/17 11:30 Urine,Catheterized Urine Culture - Final 03/24/17 15:41 Stool Stool Culture - Final Assessment and Plan (1) Clostridium difficile infection Narrative/Plan: 86-year-old female who has a history of dementia is developed recurrence of C. diff colitis. At home was having profound amounts of diarrhea resulting in weakness, dehydration and leukocytosis. Feeling somewhat better today. The nursing staff are relating to one loose stool only so far today. There is significant concerns from the family about ongoing treatment of her disease state. At this time since she's had fecal transplantation with attempts to monitor her off of any type of antibiotic therapy to see with supportive care if she cannot have improvement. Probiotic therapy is given no and also adding cholestyramine since this is a toxin binder and may help also improve the volume of her stool. [place] stool volume reduce his dehydration and improve his functional status. Her abdomen is soft without much tenderness does not have an acute abdomen. She does not have raheem sepsis at this time.leukocytosis is due to the acute illness and should be monitored and would expect it to rapidly improve.i it is the goal at this time would be the avoidance of antibiotic therapy of any type, with supportive care she may be able to recover from the flare of C. diff. Continue with probiotic therapy, cholestyramine, and a dose of Imodium to lower the volume of stool can help with her dehydration and hypokalemia. Hypokalemia resolved Patient has had some further worsening. Fever was noted. Leukocytosis had increased. A urine specimen is sent to the laboratory which remains abnormal. However the time of the straight catheterization grossly purulent material came out of the vaginal vault with concerns of a bacterial vaginosis related to her diarrhea. Metronidazole was added and since she is showing improvement in that there is less frequent diarrhea. Fever is resolved. Leukocytosis has resolved. Further antibiotic may be required if she truly has a urinary tract infection.Urine culture was grossly contaminated. She fourchette is showing some improvement. Likely will be transferred to extended care in the near future to complete her treatment of her C. diff colitis. And received therapy and treatment to her knees to get her ambulatory and back to her home situation. Family is content with her improvement. Current Visit: Yes Status: Acute Code(s): B96.89 - OTH BACTERIAL AGENTS THE CAUSE OF DISEASES [facility] SNOMED Code(s): 672481985 (2) Dementia Current Visit: Yes Status: Acute Code(s): F03.90 - UNSPECIFIED DEMENTIA WITHOUT BEHAVIORAL DISTURBANCE SNOMED Code(s): 92603968 (3) Leukocytosis Current Visit: Yes Status: Acute Code(s): D72.829 - ELEVATED WHITE BLOOD CELL COUNT, UNSPECIFIED SNOMED Code(s): 481461160
[2017-04-04 23:58] VITALS: RESP 16
[2017-04-05] MEDS: SODIUM CHLORIDE 0.9% 1,000 ML IV SCH (05:55)
[2017-04-05 07:31] VITALS: BP 165/82; PULSE 69; TEMP 98.5
[2017-04-05 08:40] LABS: Anisocytosis Slight; Basophils % (A) 0 %; Eosinophils # (A) 0.1 k/uL (0-0.7); Eosinophils % (A) 2 %; HCT 31.2 % (34.0-46.0); HGB 9.2 gm/dL (11.4-16.0); Hypochromasia Marked; Lymphocytes # (A) 0.5 k/uL (1.0-4.8); Lymphocytes % (A) 7 %; MCH 26.3 pg (25.0-35.0); MCHC 29.4 g/dL (31.0-37.0); MCV 89.4 fL (80.0-100.0); Monocytes # (A) 0.5 k/uL (0-1.0); Monocytes % (A) 8 %; Neutrophils % (A) 81 %; Platelet Count 513 k/uL (150-450); RBC 3.49 m/uL (3.80-5.40); RDW 17.3 % (11.5-15.5); WBC 6.2 k/uL (3.8-10.6)
[2017-04-05 08:55] LABS: ALT 31 U/L (9-52); AST 17 U/L (14-36); Albumin 2.4 g/dL (3.5-5.0); Alkaline Phosphatase 74 U/L (38-126); Anion Gap 7 mmol/L; Blood Urea Nitrogen 16 mg/dL (7-17); Calcium 8.3 mg/dL (8.4-10.2); Carbon Dioxide 25 mmol/L (22-30); Chloride 111 mmol/L (98-107); Glucose 100 mg/dL (74-99); Sodium 143 mmol/L (137-145); Total Bilirubin 0.1 mg/dL (0.2-1.3)
[2017-04-05] MEDS: metroNIDAZOLE 500 MG TAB PO SCH (09:34)
[2017-04-05] MEDS: CHOLECALCIFEROL 1,000 UNIT TAB PO SCH (09:34)
[2017-04-05] MEDS: APIXABAN 2.5 MG TABLET PO SCH (09:34)
[2017-04-05] MEDS: FERROUS SULFATE 325 MG TAB PO SCH (09:34)
[2017-04-05] MEDS: CHOLESTYRAMINE (WITH SUGAR) 4 GM PACKET PO SCH (09:34)
[2017-04-05] MEDS: ESCITALOPRAM 10 MG TAB PO SCH (09:34)
[2017-04-05] MEDS: LISINOPRIL 20 MG TAB PO SCH (09:34)
[2017-04-05] MEDS: METOPROLOL TARTRATE 12.5 MG TAB PO SCH (09:34)
[2017-04-05] MEDS: LACTOBACILLUS ACIDOPH & BULGAR 1 EACH PACKET PO SCH (09:34)
--- NOTE | 2017-04-05 12:24 | XR ---
EXAMINATION TYPE: XR chest 1V portable DATE OF EXAM: 04/05/2017 CLINICAL HISTORY: Extended-care facility placement. TECHNIQUE: Single AP portable upright view of the chest is obtained. COMPARISON: Chest x-ray from February 11, 2017. FINDINGS: Diminished inspiration is seen on current study as there is also cardiomegaly with atheros clerotic aorta redemonstrated. There is background chronic emphysematous change with patchy left basi lar atelectasis. Tiny bilateral pleural effusions are suspected. Osseous structures are demineralized . No pneumothorax is evident bilaterally. IMPRESSION: Diminished inspiration. There is cardiomegaly and chronic emphysematous change with tiny bilateral pleural effusions and patchy left basilar atelectasis all redemonstrated.
--- NOTE | 2017-04-05 12:28 | P.DS ---
Providers Date of admission: 03/24/17 16:42 Expected date of discharge: 04/05/17 Attending physician: Manny Goldman Consults: 03/31/17 13:12 Consult Physician Routine Consulting Provider: Rafa Taylor Consult Reason/Comments: right knee pain and swelling Do you want consulting provider notified?: Yes 03/24/17 16:42 Consult Physician Urgent Consulting Provider: Charles Beck Consult Reason/Comments: Clostridium difficile Do you want consulting provider notified?: Yes Primary care physician: [facility] Er Course: Diagnoses on discharge: #1 Clostridium difficile colitis: Patient has had history of fecal transplants. Dr. Beck is following. Reports to avoid antibiotics and treat symptomatically. Continue Questran and probiotics. Stools are becoming less frequent. She is showing improvement. Flagyl may be helping with her symptoms. Continue to monitor. Case discussed with infectious disease. Continue to monitor off of antibiotics #2 acute on chronic renal failure, stage III. Likely related to dehydration from her diarrhea. Continue with IV fluids #3 underlying history of dementia #4 underlying history of chronic anemia due to diverticulosis #5 chronic atrial fibrillation. Continue Eliquis #6 underlying history of hypertension #7 hypokalemia patient receiving potassium supplement #8 . Bacterial Vaginosis. 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 Seen by orthopedics. No surgical intervention. Or the ones to avoid aspiration of right knee until GI infection has cleared up. Hospital course: Elisa Li is an 86-year-old female with past medical history significant for C. difficile 2 or 3. 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 Patient's caregiver states she started having a little bit of diarrhea last night and today she was having profuse diarrhea and generalized weakness. Patient's caregiver states that the smell the diarrhea smelling like when she had her C. diff in the past. Patient denies any abdominal pain. Patient denies any fever chills. Patient denies any other symptoms. She denies a headache she denies numbness weakness patient denies lightheadedness dizziness or near syncopal episode. Patient denies any chest pain difficulty breathing or shortness of breath. White blood count was elevated at 17,000 on admission. 03/28/2017 patient still having loose stools but not as frequent. Patient had a temp of 101.4 last night white count has jumped up to 12.3. Blood cultures and urine culture ordered. Nursing staff reporting when they try to stay straight cath patient for urine sample the extent lately entered the vaginal canal there was a pop that was heard and greenish fluid was expelled. Upon my exam patient was resting comfortably. No evidence of pain or distress. Discussed case with patient's daughter. She is concerned about her mother's confusion 03/30/2017 per nursing patient is still having about 3-4 loose stools in the evening. Patient followed by infectious disease. Currently not on antibiotics for the C. diff. She is been started on Flagyl for a possible bacterial vaginosis. Patient is sitting in bedside chair. She has been crying and is very emotional. Nursing staff has notified patient's daughter. She will be up to the patient's room today. Patient is already on Lexapro. Denies any pain. She is confused 03/31/2017 patient sitting up in bed eating breakfast. Patient had 3 loose watery stools this morning. Had a total of 8 BMs yesterday. Patient was able to eat a small amount of her breakfast. Denies any chest pain or shortness of breath. He shouldn't is not as emotional this morning as yesterday. She is confused 04/03/2017 patient lying in bed comfortably. She had 3 bowel movements yesterday and one bowel movement this morning. Stools are still loose but are a thicker consistency. And are less frequent. Patient is showing some improvement. Case discussed with daughter at bedside 04/04/2017 patient lying in bed comfortably. Patient had a total of 5 bowel movements yesterday and one this morning. They're still loose. Denies any pain. Resting comfortably. Plan - Discharge Summary New Discharge Prescriptions: New Acetaminophen Tab [Tylenol] 650 mg PO Q6HR PRN tab PRN Reason: Fever and/ or Pain 1-5 Cholestyramine (with Sugar) [Questran Packet] 4 gm PO BID@1000,1800 packet metroNIDAZOLE [Flagyl] 500 mg PO TID tab Continue Ferrous Sulfate [Feosol] 325 mg PO BID Cholecalciferol [Vitamin D3] 2,000 unit PO DAILY Escitalopram [Lexapro] 10 mg PO DAILY Apixaban [Eliquis] 2.5 mg PO BID Metoprolol Tartrate 12.5 mg PO DAILY traZODone HCL [Desyrel] 100 mg PO HS #30 tab Lisinopril [Prinivil] 20 mg PO BID Cranberry Fruit Extract [Cranberry] 200 mg PO DAILY L.acidoph,Paracasei, B.lactis [Probiotic] 1 cap PO DAILY Discharge Medication List Ferrous Sulfate [Feosol] 325 mg PO BID 05/03/14 [History] Cholecalciferol [Vitamin D3] 2,000 unit PO DAILY 05/04/14 [History] Apixaban [Eliquis] 2.5 mg PO BID 03/21/15 [History] Escitalopram [Lexapro] 10 mg PO DAILY 03/21/15 [History] Metoprolol Tartrate 12.5 mg PO DAILY 03/21/15 [History] traZODone HCL [Desyrel] 100 mg PO HS #30 tab 03/25/15 [Rx] Cranberry Fruit Extract [Cranberry] 200 mg PO DAILY 02/11/17 [History] L.acidoph,Paracasei, B.lactis [Probiotic] 1 cap PO DAILY 02/11/17 [History] Lisinopril [Prinivil] 20 mg PO BID 02/11/17 [History] Acetaminophen Tab [Tylenol] 650 mg PO Q6HR PRN tab 04/05/17 [Rx] Cholestyramine (with Sugar) [Questran Packet] 4 gm PO BID@1000,1800 packet 01/11 [Rx] metroNIDAZOLE [Flagyl] 500 mg PO TID tab 04/05/17 [Rx] Follow up Appointment(s)/Referral(s): Manny Goldman MD [Primary Care Provider] - 1-2 days Fracisco Enriquez MD [STAFF PHYSICIAN] - As Needed
== END 2017-04-05 14:47 | DRG 372 ==
LOC: EC 13:50 → 4MS4W 16:42 → EEVIPCON 16:42 → 4MS4W 18:01
PROVIDERS: ADMIT Internal Medicine; ATTEND Internal Medicine
DX: A04.71 Enterocolitis due to Clostridium difficile, recurrent (principal); N17.9 Acute kidney failure, unspecified; I48.2 Chronic atrial fibrillation; E86.0 Dehydration; F03.90 Unspecified dementia, unspecified severity, without behavioral disturbance, psychotic disturbance, mood disturbance, and anxiety; B96.89 Other specified bacterial agents as the cause of diseases classified elsewhere; E87.6 Hypokalemia; D50.9 Iron deficiency anemia, unspecified; F40.240 Claustrophobia; I12.9 Hypertensive chronic kidney disease with stage 1 through stage 4 chronic kidney disease, or unspecified chronic kidney disease; N18.3 Chronic kidney disease, stage 3 (moderate); N76.0 Acute vaginitis; K57.90 Diverticulosis of intestine, part unspecified, without perforation or abscess without bleeding; R00.0 Tachycardia, unspecified; M17.11 Unilateral primary osteoarthritis, right knee; R32 Unspecified urinary incontinence; Z79.01 Long term (current) use of anticoagulants; Z79.899 Other long term (current) drug therapy; Z88.5 Allergy status to narcotic agent; Z82.49 Family history of ischemic heart disease and other diseases of the circulatory system
CPT/HCPCS: 36415; 71045; 80053; 81001; 82150; 83605; 83690; 83735; 84132; 85025; 87040; 87045; 87046; 87070; 87086; 87205; 87324; 99285

== ENCOUNTER 2017-06-17 23:12 | Inpatient (IN) | payer MEDICARE ==
--- NOTE | 2017-06-17 23:39 | ED ---
General Adult HPI - General Source: patient, family, EMS, RN notes reviewed Mode of arrival: EMS Limitations: no limitations <Delmer Hightower - Last Filed: 06/18/17 00:49> <David Eason - Last Filed: 06/27/17 09:04> - General Chief complaint: Altered Mental Status Stated complaint: Altered LOC Time Seen by Provider: 06/17/17 23:21 - History of Present Illness Initial comments: Patient is a pleasant 87-year-old female presenting to the emergency department for change in mental status. Symptoms have progressed over the past week or more. Patient has had several falls. Patient was recently started on Xanax and Haldol. Patient has been more emotional lately. Patient was last seen by family around 6:30 tonight. Patient was drowsy. Family received a call round 8 :00 stating that patient had a fall. Patient has been leaning towards the right. Patient reportedly complained of right shoulder discomfort. Patient is a poor historian. Daughter provides majority of history (Delmer Hightower) - Related Data Home Medications Medication Instructions Recorded Confirmed Ferrous Sulfate [Feosol] 325 mg PO BID 05/03/14 06/20/17 Cholecalciferol [Vitamin D3] 2,000 unit PO DAILY 05/04/14 06/20/17 Apixaban [Eliquis] 2.5 mg PO BID 03/21/15 06/20/17 Escitalopram [Lexapro] 10 mg PO DAILY 03/21/15 06/20/17 Metoprolol Tartrate 12.5 mg PO BID 03/21/15 06/20/17 L.acidoph,Paracasei, B.lactis 1 cap PO DAILY 02/11/17 06/20/17 [Probiotic] Lisinopril [Prinivil] 20 mg PO BID 02/11/17 06/20/17 ALPRAZolam [Xanax] 0.25 mg PO HS PRN 06/18/17 06/20/17 Cranberry Fruit Concentrate 450 mg PO DAILY 06/18/17 06/20/17 [Cranberry] Furosemide [Lasix] 40 mg PO DAILY 06/18/17 06/20/17 Haloperidol [Haldol] 1 mg PO Q4H PRN 06/18/17 06/20/17 Potassium Chloride [K-Tab ER] 10 meq PO DAILY 06/18/17 06/20/17 amLODIPine [Norvasc] 5 mg PO BID 06/18/17 06/20/17 Previous Rx's Medication Instructions Recorded Acetaminophen Tab [Tylenol] 650 mg PO Q6HR PRN tab 04/05/17 Allergies Allergy/AdvReac Type Severity Reaction Status Date / Time codeine Allergy Unknown Verified 06/20/17 21:14 Review of Systems ROS Other: All systems not noted in ROS Statement are negative. Constitutional: Denies: fever Eyes: Denies: eye pain ENT: Denies: ear pain Respiratory: Denies: cough Cardiovascular: Denies: chest pain Endocrine: Denies: fatigue Gastrointestinal: Denies: abdominal pain Genitourinary: Denies: dysuria Musculoskeletal: Denies: joint swelling Skin: Denies: rash Neurological: Reports: confusion <Delmer Hightower - Last Filed: 06/18/17 00:49> ROS Other: All systems not noted in ROS Statement are negative. <David Eason - Last Filed: 06/27/17 09:04> ROS Statement: Those systems with pertinent positive or pertinent negative responses have been documented in the HPI. Past Medical History Past Medical History: Atrial Fibrillation, Dementia, Hypertension, Renal Disease Additional Past Medical History / Comment(s): Pt has had recurrent CDiff with fecal traansplant. IRON DEFICIENCY ANEMIA , nosebleeds, chronic renal failure, bilateral arm fractures, UTI-ECOLI(04-19-15). Cognitive changes reported per Pt' s [id number] 04-28-17 History of Any Multi-Drug Resistant Organisms: C-DIFF Date of last positivie culture/infection: 02/13/17 MDRO Source:: diarrhea Past Surgical History: No Surgical Hx Reported Additional Past Surgical History / Comment(s): previous nose surgery (skin graft from right thigh to nose r/t nosebleeds) Past Anesthesia/Blood Transfusion Reactions: No Reported Reaction Additional Past Anesthesia/Blood Transfusion Reaction / Comment(s): CLAUSTERPHOBIA Past Psychological History: No Psychological Hx Reported Smoking Status: Never smoker Past Alcohol Use History: None Reported Past Drug Use History: None Reported - Past Family History Son(s) History Unknown: Yes Family Medical History: Myocardial Infarction ([place]) Father Family Medical History: Myocardial Infarction ([place]) Additional Family Medical History / Comment(s): Father at age 96 yrs. Mother History Unknown: Yes Family Medical History: No Reported History Additional Family Medical History / Comment(s): Mother was healthy and when she was 71 yrs. old. <Delmer Hightower - Last Filed: 06/18/17 00:49> General Exam Limitations: no limitations General appearance: alert, in no apparent distress Head exam: Present: atraumatic Eye exam: Present: normal appearance, PERRL ENT exam: Present: normal oropharynx Neck exam: Present: normal inspection. Absent: tenderness, meningismus Respiratory exam: Present: normal lung sounds bilaterally Cardiovascular Exam: Present: regular rate, normal rhythm GI/Abdominal exam: Present: soft. Absent: tenderness Extremities exam: Present: normal inspection. Absent: tenderness, pedal edema, calf tenderness Back exam: Absent: vertebral tenderness Neurological exam: Present: alert, altered, CN II-XII intact, other (Limited exam). Absent: motor sensory deficit Expanded Patient oriented to: Present: person. Absent: place, time Motor strength exam: RUE: 5, LUE: 5, RLE: 5, LLE: 5 Psychiatric exam: Present: depressed Skin exam: Present: normal color <Delmer Hightower - Last Filed: 06/18/17 00:49> Course <Delmer Hightower - Last Filed: 06/18/17 00:49> <David Eason - Last Filed: 06/27/17 09:04> Vital Signs 06/17/17 06/18/17 06/18/17 23:14 01:05 01:57 Temperature 97.4 F L Pulse Rate 74 76 Respiratory 15 23 Rate Blood Pressure 122/58 148/110 168/64 O2 Sat by Pulse 94 L 92 L Oximetry 06/18/17 02:05 Temperature 97.4 F L Pulse Rate Respiratory Rate Blood Pressure O2 Sat by Pulse Oximetry - Reevaluation(s) Reevaluation #1: 06/18/17 00:49 Patient care will be turned over Dr. Eason at this time. (Delmer Hightower) Reevaluation #2: 06/18/17 01:39 I have discussed all results with patient and family. All questions answered. We are waiting for call back from PMD for admission. Admission orders have been written. (David Eason) EKG Findings - EKG Comments: EKG Findings:: Sinus rhythm 76. First-degree AV block with a GA of 214. QRS 108. QT 4:30. QTC 483. Normal axis. Normal QRS. No acute ST change. <Delmer Hightower - Last Filed: 06/18/17 00:49> Medical Decision Making - Lab Data Result diagrams: 06/17/17 23:25 06/17/17 23:25 <Delmer Hightower - Last Filed: 06/18/17 00:49> - Lab Data Result diagrams: 06/20/17 08:59 06/20/17 08:59 <David Eason - Last Filed: 06/27/17 09:04> - Lab Data Lab Results 06/17/17 06/17/17 06/17/17 Range/Units 23:25 23:25 23:25 WBC 8.3 (3.8-10.6) k/uL RBC 3.26 L (3.80-5.40) m/uL Hgb 8.7 L (11.4-16.0) gm/dL Hct 28.8 L (34.0-46.0) % MCV 88.2 (80.0-100.0) fL MCH 26.7 (25.0-35.0) pg MCHC 30.2 L (31.0-37.0) g/dL RDW 17.6 H (11.5-15.5) % Plt Count 281 (150-450) k/uL Neutrophils % 80 % Lymphocytes % 6 % Monocytes % 10 % Eosinophils % 2 % Basophils % 0 % Neutrophils # 6.7 (1.3-7.7) k/uL Lymphocytes # 0.5 L (1.0-4.8) k/uL Monocytes # 0.8 (0-1.0) k/uL Eosinophils # 0.1 (0-0.7) k/uL Basophils # 0.0 (0-0.2) k/uL Hypochromasia Slight Anisocytosis Slight PT (9.0-12.0) sec INR (<1.2) APTT (22.0-30.0) sec Sodium 141 (137-145) mmol/L Potassium 5.1 (3.5-5.1) mmol/L Chloride 107 (98-107) mmol/L Carbon Dioxide 22 (22-30) mmol/L Anion Gap 12 mmol/L BUN 41 H (7-17) mg/dL Creatinine 1.40 H (0.52-1.04) mg/dL Est GFR (CKD-EPI)AfAm 38 (>60 ml/min/1.73 sqM) Est GFR (CKD-EPI)NonAf 33 (>60 ml/min/1.73 sqM) Glucose 103 H (74-99) mg/dL Calcium 9.7 (8.4-10.2) mg/dL Total Bilirubin 0.2 (0.2-1.3) mg/dL AST 23 (14-36) U/L ALT 25 (9-52) U/L Alkaline Phosphatase 101 (38-126) U/L Total Creatine Kinase 163 H (30-135) U/L CK-MB (CK-2) 2.4 (0.0-2.4) ng/mL CK-MB (CK-2) Rel Index 1.5 Troponin I <0.012 (0.000-0.034) ng/mL Total Protein 6.9 (6.3-8.2) g/dL Albumin 3.8 (3.5-5.0) g/dL Urine Color Urine Appearance (Clear) Urine pH (5.0-8.0) Ur Specific [place] (1.001-1.035) Urine Protein (Negative) Urine Glucose (UA) (Negative) Urine Ketones (Negative) Urine Blood (Negative) Urine Nitrite (Negative) Urine Bilirubin (Negative) Urine Urobilinogen (<2.0) mg/dL Ur Leukocyte Esterase (Negative) Urine RBC (0-5) /hpf Urine WBC (0-5) /hpf Urine WBC Clumps (None) /hpf Ur Squamous Epith Cells (0-4) /hpf Urine Bacteria (None) /hpf Hyaline Casts (0-2) /lpf Urine Mucus (None) /hpf Urine Opiates Screen (NotDetected) Ur Oxycodone Screen (NotDetected) Urine Methadone Screen (NotDetected) Ur Propoxyphene Screen (NotDetected) Ur Barbiturates Screen (NotDetected) U Tricyclic Antidepress (NotDetected) Ur Phencyclidine Scrn (NotDetected) Ur Amphetamines Screen (NotDetected) U Methamphetamines Scrn (NotDetected) U Benzodiazepines Scrn (NotDetected) Urine Cocaine Screen (NotDetected) U Marijuana (THC) Screen (NotDetected) Influenza Type A RNA (Not Detectd) Influenza Type B (PCR) (Not Detectd) 06/17/17 06/18/17 06/19/17 Range/Units 23:25 00:40 08:32 WBC 8.6 (3.8-10.6) k/uL RBC 3.03 L (3.80-5.40) m/uL Hgb 8.1 L (11.4-16.0) gm/dL Hct 27.4 L (34.0-46.0) % MCV 90.4 (80.0-100.0) fL MCH 26.9 (25.0-35.0) pg MCHC 29.7 L (31.0-37.0) g/dL RDW 16.9 H (11.5-15.5) % Plt Count 241 (150-450) k/uL Neutrophils % 83 % Lymphocytes % 4 % Monocytes % 11 % Eosinophils % 1 % Basophils % 0 % Neutrophils # 7.1 (1.3-7.7) k/uL Lymphocytes # 0.3 L (1.0-4.8) k/uL Monocytes # 0.9 (0-1.0) k/uL Eosinophils # 0.1 (0-0.7) k/uL Basophils # 0.0 (0-0.2) k/uL Hypochromasia Marked Anisocytosis Slight PT 10.1 (9.0-12.0) sec INR 1.0 (<1.2) APTT 22.8 (22.0-30.0) sec Sodium (137-145) mmol/L Potassium (3.5-5.1) mmol/L Chloride (98-107) mmol/L Carbon Dioxide (22-30) mmol/L Anion Gap mmol/L BUN (7-17) mg/dL Creatinine (0.52-1.04) mg/dL Est GFR (CKD-EPI)AfAm (>60 ml/min/1.73 sqM) Est GFR (CKD-EPI)NonAf (>60 ml/min/1.73 sqM) Glucose (74-99) mg/dL Calcium (8.4-10.2) mg/dL Total Bilirubin (0.2-1.3) mg/dL AST (14-36) U/L ALT (9-52) U/L Alkaline Phosphatase (38-126) U/L Total Creatine Kinase (30-135) U/L CK-MB (CK-2) (0.0-2.4) ng/mL CK-MB (CK-2) Rel Index Troponin I (0.000-0.034) ng/mL Total Protein (6.3-8.2) g/dL Albumin (3.5-5.0) g/dL Urine Color Yellow Urine Appearance Clear (Clear) Urine pH 5.0 (5.0-8.0) Ur Specific [place] 1.016 (1.001-1.035) Urine Protein Negative (Negative) Urine Glucose (UA) Negative (Negative) Urine Ketones Negative (Negative) Urine Blood Negative (Negative) Urine Nitrite Positive H (Negative) Urine Bilirubin Negative (Negative) Urine Urobilinogen <2.0 (<2.0) mg/dL Ur Leukocyte Esterase Moderate H (Negative) Urine RBC <1 (0-5) /hpf Urine WBC 22 H (0-5) /hpf Urine WBC Clumps Rare H (None) /hpf Ur Squamous Epith Cells 1 (0-4) /hpf Urine Bacteria Moderate H (None) /hpf Hyaline Casts 3 H (0-2) /lpf Urine Mucus Rare H (None) /hpf Urine Opiates Screen Not Detected (NotDetected) Ur Oxycodone Screen Not Detected (NotDetected) Urine Methadone Screen Not Detected (NotDetected) Ur Propoxyphene Screen Not Detected (NotDetected) Ur Barbiturates Screen Not Detected (NotDetected) U Tricyclic Antidepress Not Detected (NotDetected) Ur Phencyclidine Scrn Not Detected (NotDetected) Ur Amphetamines Screen Not Detected (NotDetected) U Methamphetamines Scrn Not Detected (NotDetected) U Benzodiazepines Scrn Detected H (NotDetected) Urine Cocaine Screen Not Detected (NotDetected) U Marijuana (THC) Screen Not Detected (NotDetected) Influenza Type A RNA (Not Detectd) Influenza Type B (PCR) (Not Detectd) 06/19/17 06/19/17 Range/Units 08:32 11:00 WBC (3.8-10.6) k/uL RBC (3.80-5.40) m/uL Hgb (11.4-16.0) gm/dL Hct (34.0-46.0) % MCV (80.0-100.0) fL MCH (25.0-35.0) pg MCHC (31.0-37.0) g/dL RDW (11.5-15.5) % Plt Count (150-450) k/uL Neutrophils % % Lymphocytes % % Monocytes % % Eosinophils % % Basophils % % Neutrophils # (1.3-7.7) k/uL Lymphocytes # (1.0-4.8) k/uL Monocytes # (0-1.0) k/uL Eosinophils # (0-0.7) k/uL Basophils # (0-0.2) k/uL Hypochromasia Anisocytosis PT (9.0-12.0) sec INR (<1.2) APTT (22.0-30.0) sec Sodium 143 (137-145) mmol/L Potassium 4.8 (3.5-5.1) mmol/L Chloride 112 H (98-107) mmol/L Carbon Dioxide 19 L (22-30) mmol/L Anion Gap 12 mmol/L BUN 20 H (7-17) mg/dL Creatinine 0.88 (0.52-1.04) mg/dL Est GFR (CKD-EPI)AfAm 68 (>60 ml/min/1.73 sqM) Est GFR (CKD-EPI)NonAf 59 (>60 ml/min/1.73 sqM) Glucose 117 H (74-99) mg/dL Calcium 8.8 (8.4-10.2) mg/dL Total Bilirubin 0.4 (0.2-1.3) mg/dL AST 25 (14-36) U/L ALT 21 (9-52) U/L Alkaline Phosphatase 77 (38-126) U/L Total Creatine Kinase (30-135) U/L CK-MB (CK-2) (0.0-2.4) ng/mL CK-MB (CK-2) Rel Index Troponin I (0.000-0.034) ng/mL Total Protein 5.8 L (6.3-8.2) g/dL Albumin 3.0 L (3.5-5.0) g/dL Urine Color Urine Appearance (Clear) Urine pH (5.0-8.0) Ur Specific [place] (1.001-1.035) Urine Protein (Negative) Urine Glucose (UA) (Negative) Urine Ketones (Negative) Urine Blood (Negative) Urine Nitrite (Negative) Urine Bilirubin (Negative) Urine Urobilinogen (<2.0) mg/dL Ur Leukocyte Esterase (Negative) Urine RBC (0-5) /hpf Urine WBC (0-5) /hpf Urine WBC Clumps (None) /hpf Ur Squamous Epith Cells (0-4) /hpf Urine Bacteria (None) /hpf Hyaline Casts (0-2) /lpf Urine Mucus (None) /hpf Urine Opiates Screen (NotDetected) Ur Oxycodone Screen (NotDetected) Urine Methadone Screen (NotDetected) Ur Propoxyphene Screen (NotDetected) Ur Barbiturates Screen (NotDetected) U Tricyclic Antidepress (NotDetected) Ur Phencyclidine Scrn (NotDetected) Ur Amphetamines Screen (NotDetected) U Methamphetamines Scrn (NotDetected) U Benzodiazepines Scrn (NotDetected) Urine Cocaine Screen (NotDetected) U Marijuana (THC) Screen (NotDetected) Influenza Type A RNA Not Detected (Not Detectd) Influenza Type B (PCR) Not Detected (Not Detectd) Disposition <Delmer Hightower - Last Filed: 06/18/17 00:49> <David Eason - Last Filed: 06/27/17 09:04> Clinical Impression: Fall at home, UTI (urinary tract infection), Clavicle fracture, Altered mental status, Anemia Disposition: ADMITTED IP TO THIS HOSP Condition: Poor
[2017-06-17 23:50] LABS: Anisocytosis Slight; Basophils % (A) 0 %; Eosinophils # (A) 0.1 k/uL (0-0.7); Eosinophils % (A) 2 %; HCT 28.8 % (34.0-46.0); HGB 8.7 gm/dL (11.4-16.0); Hypochromasia Slight; Lymphocytes # (A) 0.5 k/uL (1.0-4.8); Lymphocytes % (A) 6 %; MCH 26.7 pg (25.0-35.0); MCHC 30.2 g/dL (31.0-37.0); MCV 88.2 fL (80.0-100.0); Mean Platelet Volume 7.6; Monocytes # (A) 0.8 k/uL (0-1.0); Monocytes % (A) 10 %; Neutrophils # (A) 6.7 k/uL (1.3-7.7); Neutrophils % (A) 80 %; Platelet Count 281 k/uL (150-450); RBC 3.26 m/uL (3.80-5.40); RDW 17.6 % (11.5-15.5); WBC 8.3 k/uL (3.8-10.6)
[2017-06-17 23:58] LABS: Partial Thromboplastin Time 22.8 sec (22.0-30.0); Prothrombin Time 10.1 sec (9.0-12.0)
[2017-06-18 00:06] LABS: Albumin 3.8 g/dL (3.5-5.0); Calcium 9.7 mg/dL (8.4-10.2); Potassium 5.1 mmol/L (3.5-5.1); Total Bilirubin 0.2 mg/dL (0.2-1.3); Total Protein 6.9 g/dL (6.3-8.2)
--- NOTE | 2017-06-18 00:28 | CT ---
EXAM: CT Head Without Intravenous Contrast CLINICAL HISTORY: ITS.REASON CT Reason: ams, fall TECHNIQUE: Axial computed tomography images of the head/brain without intravenous contrast. CTDI is 57.4 mGy and DLP is 1081.6 mGy-cm. This CT exam was performed using one or more of the following dose reduction techniques: automated exposure control, adjustment of the mA and/or kV according to patient size, and/or use of iterative reconstruction technique. COMPARISON: 02/11/17 FINDINGS: Artifacts: Examination is limited due to motion artifact. Brain: No acute intracranial hemorrhage or mass effect identified. Stable periventricular linear calcification on the left as well as focal calcification in the left temporal lobe. Global cortical involutional changes. Periventricular and subcortical white matter hypodensity is nonspecific, though typically related to chronic small vessel ischemia. Ventricles: Unremarkable. No ventriculomegaly. Bones/joints: Unremarkable. No acute fracture. Soft tissues: Unremarkable. Sinuses: Chronic paranasal sinus mucosal thickening. No fluid levels. Mastoid air cells: Unremarkable as visualized. No mastoid effusion. IMPRESSION: No acute CT findings on this motion limited exam. EXAM: CT Cervical Spine Without Intravenous Contrast CLINICAL HISTORY: ITS.REASON CT Reason: ams, fall TECHNIQUE: Axial computed tomography images of the cervical spine without intravenous contrast. CTDI is 18.2 mGy and DLP is 423.1 mGy-cm. This CT exam was performed using one or more of the following dose reduction techniques: automated exposure control, adjustment of the mA and/or kV according to patient size, and/or use of iterative reconstruction technique. COMPARISON: No relevant prior studies available. FINDINGS: Vertebrae: No visualized acute fracture. Severe multilevel degenerative disc changes, with disc space narrowing and prominent osteophytosis at the C5-6 and C6-7 levels. Chronic-appearing grade 1 anterolisthesis is identified at the C4-5 level and C7-T1 level. Prominent multilevel facet arthropathy is present as well as uncovertebral joint hypertrophy and associated neural foraminal narrowing. . Focal cervical kyphosis noted within the lower levels which is likely related to the aforementioned degenerative changes accentuated by positioning or spasm. Discs/spinal canal/neural foramina: See above. Soft tissues: Unremarkable. Lung apices: Unremarkable as visualized. IMPRESSION: 1. No visualized fracture or definitive traumatic malalignment. 2. Extensive chronic changes are noted, as above.
--- NOTE | 2017-06-18 00:31 | XR ---
EXAM: XR Chest, 1 View CLINICAL HISTORY: ITS.REASON XR Reason: altered mental status TECHNIQUE: Frontal view of the chest. COMPARISON: 04/05/17 FINDINGS: Lungs: Left basilar atelectasis. Pleural space: No significant effusion or visualized pneumothorax. Heart: Cardiomegaly. Pulmonary venous congestion and right hilar prominence which may represent pulmonary arterial enlargement. Mediastinum: Unremarkable. Bones/joints: Right distal clavicle fracture. IMPRESSION: 1. Cardiomegaly with pulmonary vascular congestion. Stable right hilar prominence which may be related to pulmonary arterial enlargement. 2. Partially visualized right clavicle fracture.
--- NOTE | 2017-06-18 00:34 | XR ---
EXAM: XR Right Shoulder Complete, 2 or More Views CLINICAL HISTORY: ITS.REASON XR Reason: Pain TECHNIQUE: Two or more views of the right shoulder. COMPARISON: No relevant prior studies available. FINDINGS: Bones/joints: Acute fracture of the distal right clavicle, with prominent angulation and distal displacement. Possible slightly high riding humeral head with otherwise intact appearance to the glenohumeral joint. Acromioclavicular joint is intact. Soft tissues: Unremarkable. IMPRESSION: 1. Distal right clavicle fracture.
--- NOTE | 2017-06-18 00:38 | XR ---
EXAM: XR Pelvis, 1 or 2 Views CLINICAL HISTORY: ITS.REASON XR Reason: fall TECHNIQUE: Frontal view of the pelvis. COMPARISON: 02/11/17 FINDINGS: Limitations: Exam is limited by underpenetration. Bones/joints: No visualized fracture or traumatic malalignment. Symmetric osteoarthritic changes to the hips with joint space loss and mild osteophytosis. Degenerative changes to the lower lumbar spine with disc space height loss and osteophytosis. Soft tissues: Unremarkable. IMPRESSION: No acute radiographic findings.
[2017-06-18 00:51] LABS: Creatine Kinase 163 U/L (30-135)
[2017-06-18 01:04] LABS: Creatine Kinase MB 2.4 ng/mL (0.0-2.4); Troponin I <0.012 ng/mL (0.000-0.034)
[2017-06-18 01:06] LABS: Appearance,Urine Clear (Clear); Bacteria,Urine Moderate /hpf; Bilirubin,Urine Negative (Negative); Blood,Urine Negative (Negative); Color,Urine Yellow; Glucose,Urine (UA) Negative (Negative); Hyaline Casts,Urine 3 /lpf (0-2); Ketones,Urine Negative (Negative); Leukocyte Esterase,Urine Moderate (Negative); Mucus,Urine Rare /hpf; Nitrite,Urine Positive (Negative); Protein,Urine Negative (Negative); RBC,Urine <1 /hpf (0-5); Specific Gravity,Urine 1.016 (1.001-1.035); Squamous Epithelial Cell,Urine 1 /hpf (0-4); Urobilinogen,Urine <2.0 mg/dL (<2.0); WBC,Urine 22 /hpf (0-5)
[2017-06-18] MEDS ORDERED: NALOXONE 0.4 MG/ML 1 ML VIAL IV PRN (01:11)
[2017-06-18 01:12] LABS: Amphetamine Screen,Urine Not Detected (NotDetected); Barbiturate Screen,Urine Not Detected (NotDetected); Benzodiazepines Screen,Urine Detected (NotDetected); Cocaine Screen,Urine Not Detected (NotDetected); Methadone Screen, Urine Not Detected (NotDetected); Opiate Screen,Urine Not Detected (NotDetected); Oxycodone Screen, Urine Not Detected (NotDetected); Phencyclidine Screen,Urine Not Detected (NotDetected); Tricyclic Antidepressant,Urine Not Detected (NotDetected); Urn Cannabinoid Scrn Not Detected (NotDetected)
[2017-06-18] MEDS ORDERED: MORPHINE SULFATE 4 MG/ML SYRINGE IV STA (01:29)
[2017-06-18] MEDS ORDERED: cefTRIAXone IN SWFI 1,000 MG/10 ML SYRINGE IVP STA (01:30)
[2017-06-18] MEDS ORDERED: MORPHINE SULFATE/PF 10MG/10ML VL IV STA (01:31)
[2017-06-18] MEDS: SODIUM CHLORIDE 0.9% 1,000 ML IV SCH ×2 (01:49→14:19)
[2017-06-18 02:33] VITALS: BMI 34.7
[2017-06-18] MEDS: CHOLESTYRAMINE (WITH SUGAR) 4 GM PACKET PO SCH ×2 (08:57→17:20)
[2017-06-18] MEDS: metroNIDAZOLE 500 MG TAB PO SCH ×3 (08:57→20:05)
[2017-06-18] MEDS: FERROUS SULFATE 325 MG TAB PO SCH ×2 (08:58→20:06)
[2017-06-18] MEDS: CHOLECALCIFEROL 1,000 UNIT TAB PO SCH (08:58)
[2017-06-18] MEDS: amLODIPine 2.5 MG TAB PO SCH (08:58)
[2017-06-18] MEDS: LISINOPRIL 20 MG TAB PO SCH ×2 (08:59→20:05)
[2017-06-18] MEDS: APIXABAN 2.5 MG TABLET PO SCH ×2 (08:59→20:05)
[2017-06-18] MEDS: ESCITALOPRAM 10 MG TAB PO SCH (08:59)
[2017-06-18] MEDS: METOPROLOL TARTRATE 12.5 MG TAB PO SCH (08:59)
--- NOTE | 2017-06-18 11:58 | P.HPIM ---
History of Present Illness H&P Date: 06/18/17 Patient is a pleasant 87-year-old female who presented to [facility] emergency department for change in mental status. Symptoms have progressed over the past week or more. Patient has had several falls. Patient was recently started on Xanax and Haldol. Patient has been more emotional lately. Patient was drowsy. Family received a call round 8: 00 stating that patient had a fall. Patient has been leaning towards the right. Patient reportedly complained of right shoulder discomfort. Patient is a poor historian. Son-in-law in the room provided some of the history, history also obtained from chart review and senior living records. Patient was evaluated in emergency room she had evidence of distal right clavicle fracture, pelvic x-ray did not reveal any evidence of fractures. Past Medical History Past Medical History: Atrial Fibrillation, Dementia, Hypertension, Renal Disease Additional Past Medical History / Comment(s): Pt has had recurrent CDiff with fecal traansplant. IRON DEFICIENCY ANEMIA , nosebleeds, chronic renal failure, bilateral arm fractures, UTI-ECOLI(04-19-15). Cognitive changes reported per Pt' s [id number] 04-28-17 History of Any Multi-Drug Resistant Organisms: C-DIFF Date of last positivie culture/infection: 02/13/17 MDRO Source:: diarrhea Past Surgical History: No Surgical Hx Reported Additional Past Surgical History / Comment(s): previous nose surgery (skin graft from right thigh to nose r/t nosebleeds) Past Anesthesia/Blood Transfusion Reactions: No Reported Reaction Additional Past Anesthesia/Blood Transfusion Reaction / Comment(s): CLAUSTERPHOBIA Past Psychological History: No Psychological Hx Reported Additional Psychological History / Comment(s): Pt's daughter lives with her. PT HAS DEMENTIA AND DAUGHTER STATES SHE GETS" SUNDOWNERS" AND CAN BECOME A BIT COMBATATIVE AT TIMES. Pt has shower chair, toilet riser and a walker. She has no home care services-declined. Smoking Status: Never smoker Past Alcohol Use History: None Reported Past Drug Use History: None Reported - Past Family History Son(s) History Unknown: Yes Family Medical History: Myocardial Infarction ([place]) Father Family Medical History: Myocardial Infarction ([place]) Additional Family Medical History / Comment(s): Father at age 96 yrs. Mother History Unknown: Yes Family Medical History: No Reported History Additional Family Medical History / Comment(s): Mother was healthy and when she was 71 yrs. old. Medications and Allergies Home Medications Medication Instructions Recorded Confirmed Type Ferrous Sulfate [Feosol] 325 mg PO BID 05/03/14 06/18/17 History Cholecalciferol [Vitamin D3] 2,000 unit PO DAILY 05/04/14 06/18/17 History Apixaban [Eliquis] 2.5 mg PO BID 03/21/15 06/18/17 History Escitalopram [Lexapro] 10 mg PO DAILY 03/21/15 06/18/17 History Metoprolol Tartrate 12.5 mg PO BID 03/21/15 06/18/17 History L.acidoph,Paracasei, B.lactis 1 cap PO DAILY 02/11/17 06/18/17 History [Probiotic] Lisinopril [Prinivil] 20 mg PO BID 02/11/17 06/18/17 History Acetaminophen Tab [Tylenol] 650 mg PO Q6HR PRN tab 04/05/17 06/18/17 Rx ALPRAZolam [Xanax] 0.25 mg PO HS PRN 06/18/17 06/18/17 History Cranberry Fruit Concentrate 450 mg PO DAILY 06/18/17 06/18/17 History [Cranberry] Furosemide [Lasix] 40 mg PO DAILY 06/18/17 06/18/17 History Haloperidol [Haldol] 1 mg PO Q4H PRN 06/18/17 06/18/17 History Potassium Chloride [K-Tab ER] 10 meq PO DAILY 06/18/17 06/18/17 History amLODIPine [Norvasc] 5 mg PO BID 06/18/17 06/18/17 History Allergies Allergy/AdvReac Type Severity Reaction Status Date / Time codeine Allergy Unknown Verified 06/18/17 07:47 Physical Exam Vitals: Vital Signs Temp Pulse Pulse Resp BP BP Pulse Ox 06/18/17 07:00 97 F L 83 20 95 06/18/17 03:16 97.1 F L 76 20 131/46 96 06/18/17 02:05 97.4 F L 06/18/17 01:57 76 23 168/64 92 L 06/18/17 01:05 148/110 06/17/17 23:14 97.4 F L 74 15 122/58 94 L Intake and Output 06/17/17 06/18/17 06/18/17 22:59 06:59 14:59 Intake Total 0 Balance 0 Intake: Oral 0 Other: # Voids 2 Weight 75.977 kg In general patient is alert confused in no apparent distress HEENT head normocephalic possible nasal trauma Neck is supple no JVD no goiter no lymphadenopathy Exam reveals a few scattered rhonchi no wheezing Cardiac exam reveals regular heart sounds S1 and S2 no gallops no murmurs Abdomen is soft nontender no organomegaly with normal bowel sounds Extremity exam reveals no edema no cyanosis or clubbing Neurological examination patient is alert confused, not cooperative with exam she is moving all 4 extremities spontaneously Results CBC & Chem 7: 06/17/17 23:25 06/17/17 23:25 Labs: Abnormal Lab Results - Last 24 Hours (Table) 06/17/17 06/17/17 06/17/17 Range/Units 23:25 23:25 23:25 RBC 3.26 L (3.80-5.40) m/uL Hgb 8.7 L (11.4-16.0) gm/dL Hct 28.8 L (34.0-46.0) % MCHC 30.2 L (31.0-37.0) g/dL RDW 17.6 H (11.5-15.5) % Lymphocytes # 0.5 L (1.0-4.8) k/uL BUN 41 H (7-17) mg/dL Creatinine 1.40 H (0.52-1.04) mg/dL Glucose 103 H (74-99) mg/dL Total Creatine Kinase 163 H (30-135) U/L Urine Nitrite (Negative) Ur Leukocyte Esterase (Negative) Urine WBC (0-5) /hpf Urine WBC Clumps (None) /hpf Urine Bacteria (None) /hpf Hyaline Casts (0-2) /lpf Urine Mucus (None) /hpf U Benzodiazepines Scrn (NotDetected) 06/18/17 Range/Units 00:40 RBC (3.80-5.40) m/uL Hgb (11.4-16.0) gm/dL Hct (34.0-46.0) % MCHC (31.0-37.0) g/dL RDW (11.5-15.5) % Lymphocytes # (1.0-4.8) k/uL BUN (7-17) mg/dL Creatinine (0.52-1.04) mg/dL Glucose (74-99) mg/dL Total Creatine Kinase (30-135) U/L Urine Nitrite Positive H (Negative) Ur Leukocyte Esterase Moderate H (Negative) Urine WBC 22 H (0-5) /hpf Urine WBC Clumps Rare H (None) /hpf Urine Bacteria Moderate H (None) /hpf Hyaline Casts 3 H (0-2) /lpf Urine Mucus Rare H (None) /hpf U Benzodiazepines Scrn Detected H (NotDetected) Thrombosis Risk Factor Assmnt - Choose All That Apply Any of the Below Risk Factors Present?: Yes Each Factor Represents 1 point: Obesity (BMI >25) Each Risk Factor Represents 3 Points: Age 75 years or older Thrombosis Risk Factor Assessment Total Risk Factor Score: 4 Thrombosis Risk Factor Assessment Level: Moderate Risk Assessment and Plan Plan: #1 mental status changes #2 evidence of urinary tract infection patient started on IV Rocephin #3 multiple falls with evidence of right clavicle fracture #4 underlying history of atrial fibrillation #5 underlying history of dementia #6 underlying history of chronic kidney disease At this time patient is placed on IV Rocephin for urinary tract infection She is maintained on Haldol and Xanax for agitation and mental status changes Neurology and psychiatry opinion will be obtained Orthopedic surgery consult requested in regard to right clavicle fracture Will follow closely
[2017-06-18] MEDS: cefTRIAXone IN SWFI 1,000 MG/10 ML SYRINGE IVP SCH ×2 (12:31→14:19)
--- NOTE | 2017-06-18 13:16 | P.CONS ---
History of Present Illness - Reason for Consult Consult date: 06/18/17 Altered Mental status - Chief Complaint Altered mental status - History of Present Illness Is an 87-year-old female being evaluated by the neurology service for altered mental status. She's had progressive cyst symptoms of confusion over the last week or so. She's had a couple falls. With this episode she does have a fractured collarbone. She was recently started on Xanax and Haldol. His brought to [facility] emergency room where a CT of the head was done and showed no acute intracranial abnormalities. She does have chronic small vessel ischemic changes. She was found have urinary tract infection. Her urine was positive for benzodiazepines. Her hemoglobin was 8.7 hematocrit was 20 8.8B ON was rewarmed and creatinine is 1.4. She has a history of fairly frequent urinary tract infections. But over the last year she started to develop Clostridium difficile I'll enteritis. She has had fecal transplant for this couple times. This time of my exam she is lying in her hospital bed in some mild distress. Review of Systems All systems: negative Constitutional: Reports as per HPI Past Medical History Past Medical History: Atrial Fibrillation, Dementia, Hypertension, Renal Disease Additional Past Medical History / Comment(s): Pt has had recurrent CDiff with fecal traansplant. IRON DEFICIENCY ANEMIA , nosebleeds, chronic renal failure, bilateral arm fractures, UTI-ECOLI(04-19-15). Cognitive changes reported per Pt' s [id number] 04-28-17 History of Any Multi-Drug Resistant Organisms: C-DIFF Year Discovered:: 02/13/17 MDRO Source:: diarrhea Past Surgical History: No Surgical Hx Reported Additional Past Surgical History / Comment(s): previous nose surgery (skin graft from right thigh to nose r/t nosebleeds) Past Anesthesia/Blood Transfusion Reactions: No Reported Reaction Additional Past Anesthesia/Blood Transfusion Reaction / Comm: CLAUSTERPHOBIA Past Psychological History: No Psychological Hx Reported Additional Psychological History / Comment(s): Pt's daughter lives with her. PT HAS DEMENTIA AND DAUGHTER STATES SHE GETS" SUNDOWNERS" AND CAN BECOME A BIT COMBATATIVE AT TIMES. Pt has shower chair, toilet riser and a walker. She has no home care services-declined. Smoking Status: Never smoker Past Alcohol Use History: None Reported Past Drug Use History: None Reported - Past Family History Son(s) History Unknown: Yes Family Medical History: Myocardial Infarction ([place]) Father Family Medical History: Myocardial Infarction ([place]) Additional Family Medical History / Comment(s): Father at age 96 yrs. Mother History Unknown: Yes Family Medical History: No Reported History Additional Family Medical History / Comment(s): Mother was healthy and when she was 71 yrs. old. Medications and Allergies Home Medications Medication Instructions Recorded Confirmed Type Ferrous Sulfate [Feosol] 325 mg PO BID 05/03/14 06/18/17 History Cholecalciferol [Vitamin D3] 2,000 unit PO DAILY 05/04/14 06/18/17 History Apixaban [Eliquis] 2.5 mg PO BID 03/21/15 06/18/17 History Escitalopram [Lexapro] 10 mg PO DAILY 03/21/15 06/18/17 History Metoprolol Tartrate 12.5 mg PO BID 03/21/15 06/18/17 History L.acidoph,Paracasei, B.lactis 1 cap PO DAILY 02/11/17 06/18/17 History [Probiotic] Lisinopril [Prinivil] 20 mg PO BID 02/11/17 06/18/17 History Acetaminophen Tab [Tylenol] 650 mg PO Q6HR PRN tab 04/05/17 06/18/17 Rx ALPRAZolam [Xanax] 0.25 mg PO HS PRN 06/18/17 06/18/17 History Cranberry Fruit Concentrate 450 mg PO DAILY 06/18/17 06/18/17 History [Cranberry] Furosemide [Lasix] 40 mg PO DAILY 06/18/17 06/18/17 History Haloperidol [Haldol] 1 mg PO Q4H PRN 06/18/17 06/18/17 History Potassium Chloride [K-Tab ER] 10 meq PO DAILY 06/18/17 06/18/17 History amLODIPine [Norvasc] 5 mg PO BID 06/18/17 06/18/17 History Allergies Allergy/AdvReac Type Severity Reaction Status Date / Time codeine Allergy Unknown Verified 06/18/17 07:47 Physical Exam Vitals: Vital Signs Temp Pulse Pulse Resp BP BP Pulse Ox 06/18/17 07:00 97 F L 83 20 95 06/18/17 03:16 97.1 F L 76 20 131/46 96 06/18/17 02:05 97.4 F L 06/18/17 01:57 76 23 168/64 92 L 06/18/17 01:05 148/110 06/17/17 23:14 97.4 F L 74 15 122/58 94 L Intake and Output 06/17/17 06/18/17 06/18/17 22:59 06:59 14:59 Intake Total 0 Balance 0 Intake: Oral 0 Other: # Voids 2 Weight 75.977 kg - Constitutional General appearance: average body habitus, mild distress - EENT Pupils are constricted bilaterally Eyes: abnormal pupil, PERRLA, no ptosis - Neck Neck: normal ROM, no rigidity - Respiratory Respiratory: negative: prolonged expiration, prolonged inspiration - Cardiovascular Rhythm: regular - Gastrointestinal General gastrointestinal: no distended, tenderness - Neurologic Patient is confused and very mildly agitated. She responds sometimes to her name. Speech is normal but confused. She follows simple commands intermittently. There is no facial asymmetry. There is no lateralizing weakness seen. No tremors or seizure-like activities are seen. Results CBC & Chem 7: 06/17/17 23:25 06/17/17 23:25 Labs: Abnormal Lab Results - Last 24 Hours (Table) 06/17/17 06/17/17 06/17/17 Range/Units 23:25 23:25 23:25 RBC 3.26 L (3.80-5.40) m/uL Hgb 8.7 L (11.4-16.0) gm/dL Hct 28.8 L (34.0-46.0) % MCHC 30.2 L (31.0-37.0) g/dL RDW 17.6 H (11.5-15.5) % Lymphocytes # 0.5 L (1.0-4.8) k/uL BUN 41 H (7-17) mg/dL Creatinine 1.40 H (0.52-1.04) mg/dL Glucose 103 H (74-99) mg/dL Total Creatine Kinase 163 H (30-135) U/L Urine Nitrite (Negative) Ur Leukocyte Esterase (Negative) Urine WBC (0-5) /hpf Urine WBC Clumps (None) /hpf Urine Bacteria (None) /hpf Hyaline Casts (0-2) /lpf Urine Mucus (None) /hpf U Benzodiazepines Scrn (NotDetected) 06/18/17 Range/Units 00:40 RBC (3.80-5.40) m/uL Hgb (11.4-16.0) gm/dL Hct (34.0-46.0) % MCHC (31.0-37.0) g/dL RDW (11.5-15.5) % Lymphocytes # (1.0-4.8) k/uL BUN (7-17) mg/dL Creatinine (0.52-1.04) mg/dL Glucose (74-99) mg/dL Total Creatine Kinase (30-135) U/L Urine Nitrite Positive H (Negative) Ur Leukocyte Esterase Moderate H (Negative) Urine WBC 22 H (0-5) /hpf Urine WBC Clumps Rare H (None) /hpf Urine Bacteria Moderate H (None) /hpf Hyaline Casts 3 H (0-2) /lpf Urine Mucus Rare H (None) /hpf U Benzodiazepines Scrn Detected H (NotDetected) Assessment and Plan (1) Acute metabolic encephalopathy Current Visit: Yes Status: Acute Code(s): G93.41 - METABOLIC ENCEPHALOPATHY SNOMED Code(s): 63432211 (2) Altered mental status Current Visit: Yes Status: Acute Code(s): R41.82 - ALTERED MENTAL STATUS, UNSPECIFIED SNOMED Code(s): 388508477 (3) Anemia Current Visit: Yes Status: Acute Code(s): D64.9 - ANEMIA, UNSPECIFIED SNOMED Code(s): 803564581 (4) Clavicle fracture Current Visit: Yes Status: Acute Code(s): S42.009A - FRACTURE OF UNSP PART OF UNSP CLAVICLE, INIT FOR CLOS FX SNOMED Code(s): 60868591 (5) UTI (urinary tract infection) Current Visit: Yes Status: Acute Code(s): N39.0 - URINARY TRACT INFECTION, SITE NOT SPECIFIED SNOMED Code(s): 11794926 (6) Atrial fibrillation with rapid ventricular response Current Visit: No Status: Chronic Code(s): I48.91 - UNSPECIFIED ATRIAL FIBRILLATION SNOMED Code(s): 247776298234870 (7) Dehydration Current Visit: No Status: Acute Code(s): E86.0 - DEHYDRATION SNOMED Code(s ): 01304103 (8) Dementia Current Visit: No Status: Chronic Code(s): F03.90 - UNSPECIFIED DEMENTIA WITHOUT BEHAVIORAL DISTURBANCE SNOMED Code(s): 14277008 Plan: This 87-year-old female with altered mental status is likely encephalopathic from multiple processes. Recommend correcting her underlying metabolic abnormalities. Treat urinary tract infection with appropriate antibiotics. May consider consult infectious disease due to her persistent Clostridium difficile enteritis. EEG has already been ordered. Continue neurological checks. We will continue to follow and make recommendations based on her clinical progress and EEG results. X I have performed a history and physical on the above patient. I have reviewed the above note, and agree.
--- NOTE | 2017-06-18 15:30 | P.CNOR ---
History of Present Illness - [facility] Consult date: 06/18/17 Consult reason: fracture History of present illness: Patient is an 87-year-old female who was brought to [facility] late last night with regards to worsening altered mental status. Patient currently stays at [facility]. She has a known history of dementia. The confusion has apparently been getting worse last week or so. She 's had a few different episodes of falling. Upon arrival to the hospital, she mentioned pain involving the right upper extremity, more specifically the shoulder. Imaging test were done on the shoulder and pelvis. Lab tests also revealed likely urinary tract infection. She was admitted under internal medicine for further care, multiple specialties having consult. We were consulted with regards to a right clavicle fracture. Patient was seen at bedside today. She is very agitated. She answers very little of my questions, she is not alert and oriented to time or place. She does state there is pain in the right shoulder. Remaining review of systems and history of present illness was unattainable. Review of Systems Constitutional: Reports as per [facility] Past Medical History Past Medical History: Atrial Fibrillation, Dementia, Hypertension, Renal Disease Additional Past Medical History / Comment(s): Pt has had recurrent CDiff with fecal traansplant. IRON DEFICIENCY ANEMIA , nosebleeds, chronic renal failure, bilateral arm fractures, UTI-ECOLI(04-19-15). Cognitive changes reported per Pt' s [id number] 04-28-17 History of Any Multi-Drug Resistant Organisms: C-DIFF Year Discovered:: 02/13/17 MDRO Source:: diarrhea Past Surgical History: No Surgical Hx Reported Additional Past Surgical History / Comment(s): previous nose surgery (skin graft from right thigh to nose r/t nosebleeds) Past Anesthesia/Blood Transfusion Reactions: No Reported Reaction Additional Past Anesthesia/Blood Transfusion Reaction / Comm: CLAUSTERPHOBIA Past Psychological History: No Psychological Hx Reported Additional Psychological History / Comment(s): Pt's daughter lives with her. PT HAS DEMENTIA AND DAUGHTER STATES SHE GETS" SUNDOWNERS" AND CAN BECOME A BIT COMBATATIVE AT TIMES. Pt has shower chair, toilet riser and a walker. She has no home care services-declined. Smoking Status: Never smoker Past Alcohol Use History: None Reported Past Drug Use History: None Reported - Past Family History Son(s) History Unknown: Yes Family Medical History: Myocardial Infarction ([place]) Father Family Medical History: Myocardial Infarction ([place]) Additional Family Medical History / Comment(s): Father at age 96 yrs. Mother History Unknown: Yes Family Medical History: No Reported History Additional Family Medical History / Comment(s): Mother was healthy and when she was 71 yrs. old. Medications and Allergies Home Medications Medication Instructions Recorded Confirmed Type Ferrous Sulfate [Feosol] 325 mg PO BID 05/03/14 06/18/17 History Cholecalciferol [Vitamin D3] 2,000 unit PO DAILY 05/04/14 06/18/17 History Apixaban [Eliquis] 2.5 mg PO BID 03/21/15 06/18/17 History Escitalopram [Lexapro] 10 mg PO DAILY 03/21/15 06/18/17 History Metoprolol Tartrate 12.5 mg PO BID 03/21/15 06/18/17 History L.acidoph,Paracasei, B.lactis 1 cap PO DAILY 02/11/17 06/18/17 History [Probiotic] Lisinopril [Prinivil] 20 mg PO BID 02/11/17 06/18/17 History Acetaminophen Tab [Tylenol] 650 mg PO Q6HR PRN tab 04/05/17 06/18/17 Rx ALPRAZolam [Xanax] 0.25 mg PO HS PRN 06/18/17 06/18/17 History Cranberry Fruit Concentrate 450 mg PO DAILY 06/18/17 06/18/17 History [Cranberry] Furosemide [Lasix] 40 mg PO DAILY 06/18/17 06/18/17 History Haloperidol [Haldol] 1 mg PO Q4H PRN 06/18/17 06/18/17 History Potassium Chloride [K-Tab ER] 10 meq PO DAILY 06/18/17 06/18/17 History amLODIPine [Norvasc] 5 mg PO BID 06/18/17 06/18/17 History Allergies Allergy/AdvReac Type Severity Reaction Status Date / Time codeine Allergy Unknown Verified 06/18/17 07:47 Physical Examination Right upper extremity Physical exam was very difficult to obtain due to patient's mental status. There is an area of ecchymosis noted in the trapezius muscle distribution on the right side She is tender with palpation toward the distal aspect of the clavicle. No reproducible pain produced with palpation surrounding the glenohumeral joint , elbow, hand or wrist Range of motion both actively and passively were difficult to examine Radial pulses 2+ Logroll maneuver the bilateral hips reproduces no pain Results - Labs Labs: Abnormal Lab Results - Last 24 Hours (Table) 06/17/17 06/17/17 06/17/17 Range/Units 23:25 23:25 23:25 RBC 3.26 L (3.80-5.40) m/uL Hgb 8.7 L (11.4-16.0) gm/dL Hct 28.8 L (34.0-46.0) % MCHC 30.2 L (31.0-37.0) g/dL RDW 17.6 H (11.5-15.5) % Lymphocytes # 0.5 L (1.0-4.8) k/uL BUN 41 H (7-17) mg/dL Creatinine 1.40 H (0.52-1.04) mg/dL Glucose 103 H (74-99) mg/dL Total Creatine Kinase 163 H (30-135) U/L Urine Nitrite (Negative) Ur Leukocyte Esterase (Negative) Urine WBC (0-5) /hpf Urine WBC Clumps (None) /hpf Urine Bacteria (None) /hpf Hyaline Casts (0-2) /lpf Urine Mucus (None) /hpf U Benzodiazepines Scrn (NotDetected) 06/18/17 Range/Units 00:40 RBC (3.80-5.40) m/uL Hgb (11.4-16.0) gm/dL Hct (34.0-46.0) % MCHC (31.0-37.0) g/dL RDW (11.5-15.5) % Lymphocytes # (1.0-4.8) k/uL BUN (7-17) mg/dL Creatinine (0.52-1.04) mg/dL Glucose (74-99) mg/dL Total Creatine Kinase (30-135) U/L Urine Nitrite Positive H (Negative) Ur Leukocyte Esterase Moderate H (Negative) Urine WBC 22 H (0-5) /hpf Urine WBC Clumps Rare H (None) /hpf Urine Bacteria Moderate H (None) /hpf Hyaline Casts 3 H (0-2) /lpf Urine Mucus Rare H (None) /hpf U Benzodiazepines Scrn Detected H (NotDetected) H & H 06/17/17 Range/Units 23:25 Hgb 8.7 L (11.4-16.0) gm/dL Hct 28.8 L (34.0-46.0) % Coagulation 06/17/17 Range/Units 23:25 INR 1.0 (<1.2) Result Diagrams: 06/17/17 23:25 06/17/17 23:25 - Diagnostic results Shoulder x-ray: report reviewed, image reviewed Assessment and Plan Plan: Imaging: Multiple views of the right shoulder obtained and reviewed along with reports. Images demonstrate distal third clavicle fracture Assessment: 1. Right clavicle fracture distal third 2. History of recent falls 3. Multiple medical comorbidities Plan: I was able to discuss the case including physical exam findings and imaging studies my attending Dr. Taylor. No orthopedic surgical intervention will be needed at this time. We will like to proceed with conservative measures, this to include an arm sling and resting of the right upper extremity Arm sling right upper extremity, avoid excess use Pain control, avoid narcotics due to mental status GI and DVT prophylaxis per medical recommendation Other medical especially recommendations We'll be available for any further questions Time with Patient: Less than 30
--- NOTE | 2017-06-18 16:31 | P.CN ---
Psychiatric Consult - . Consult date: 06/18/17 Consult:: 06/18/17 16:24 Patient was seen for a psych consult regarding altered mental status. According to her records including lab report she has dementia atrial fibrillation hypertension renal insufficiency UTI anemia etc. Apparently her confusion and mental status got worse during the last week. Patient is not able to provide any useful information. According to her daughter, patient's gets confused agitated etc. every time she has UTI. She also said patient does well when her infection gets better. Patient was seen lying down in her bed. She had her eyes closed and never opened them when I tried to talk to her. She was mumbling and screaming which were hard to understand. She could not engage in any meaningful conversation or make sense of what she was saying. But there were times when she sounded more coherent conversation when her daughter tried to talk to her and console her. Assessment: Delirium secondary to multiple physical problems including UTI and renal insufficiency. Suggestion: Can use Haldol 0.5-1 mg and Ativan 0.5 mg to IV to every 4-6 hours on a when necessary basis for agitation. But the focus should be to correct her metabolic disorder and UTI.
[2017-06-18] MEDS: traZODone HCL 100 MG TAB PO SCH (20:06)
[2017-06-19] MEDS: SODIUM CHLORIDE 0.9% 1,000 ML IV SCH ×3 (06:15→16:16)
[2017-06-19] MEDS: ACETAMINOPHEN TAB 325 MG TAB PO PRN (06:21)
[2017-06-19] MEDS: cefTRIAXone IN SWFI 1,000 MG/10 ML SYRINGE IVP SCH (07:56)
[2017-06-19] MEDS: METOPROLOL TARTRATE 12.5 MG TAB PO SCH (07:56)
[2017-06-19] MEDS: APIXABAN 2.5 MG TABLET PO SCH ×2 (07:56→20:47)
[2017-06-19] MEDS: CHOLECALCIFEROL 1,000 UNIT TAB PO SCH (07:56)
[2017-06-19] MEDS: amLODIPine 2.5 MG TAB PO SCH (07:57)
[2017-06-19] MEDS: LISINOPRIL 20 MG TAB PO SCH ×2 (07:57→20:44)
[2017-06-19] MEDS: FERROUS SULFATE 325 MG TAB PO SCH ×2 (07:57→20:47)
[2017-06-19] MEDS: ESCITALOPRAM 10 MG TAB PO SCH (07:57)
[2017-06-19] MEDS: metroNIDAZOLE 500 MG TAB PO SCH ×3 (07:57→20:44)
[2017-06-19] MEDS: CHOLESTYRAMINE (WITH SUGAR) 4 GM PACKET PO SCH ×2 (08:04→16:16)
[2017-06-19 08:56] LABS: Anisocytosis Slight; Basophils % (A) 0 %; Eosinophils # (A) 0.1 k/uL (0-0.7); Eosinophils % (A) 1 %; HCT 27.4 % (34.0-46.0); HGB 8.1 gm/dL (11.4-16.0); Hypochromasia Marked; Lymphocytes # (A) 0.3 k/uL (1.0-4.8); Lymphocytes % (A) 4 %; MCH 26.9 pg (25.0-35.0); MCHC 29.7 g/dL (31.0-37.0); MCV 90.4 fL (80.0-100.0); Mean Platelet Volume 7.5; Monocytes # (A) 0.9 k/uL (0-1.0); Monocytes % (A) 11 %; Neutrophils # (A) 7.1 k/uL (1.3-7.7); Neutrophils % (A) 83 %; Platelet Count 241 k/uL (150-450); RBC 3.03 m/uL (3.80-5.40); RDW 16.9 % (11.5-15.5); WBC 8.6 k/uL (3.8-10.6)
[2017-06-19 09:35] LABS: Calcium 8.8 mg/dL (8.4-10.2); Potassium 4.8 mmol/L (3.5-5.1); Total Bilirubin 0.4 mg/dL (0.2-1.3); Total Protein 5.8 g/dL (6.3-8.2)
--- NOTE | 2017-06-19 12:53 | P.PN ---
Subjective Progress Note Date: 06/19/17 Patient is a pleasant 87-year-old female who presented to [facility] emergency department for change in mental status. Symptoms have progressed over the past week or more. Patient has had several falls. Patient was recently started on Xanax and Haldol. Patient has been more emotional lately. Patient was drowsy. Family received a call round 8: 00 stating that patient had a fall. Patient has been leaning towards the right. Patient reportedly complained of right shoulder discomfort. Patient is a poor historian. Son-in-law in the room provided some of the history, history also obtained from chart review and [facility] records. Patient was evaluated in emergency room she had evidence of distal right clavicle fracture, pelvic x-ray did not reveal any evidence of fractures. 06/19/2017 patient is still confused. She does have a significant cough. Had a low-grade temp of 100.5. White count normal. Chest x-ray ordered. Influenza screen negative. No diarrhea reported Objective - Vital Signs Vital signs: Vital Signs Temp 100.5 F H 06/19/17 06:35 Pulse 81 06/19/17 06:35 Resp 20 06/19/17 06:35 BP 133/85 06/19/17 06:35 Pulse Ox 98 06/19/17 06:35 Intake & Output 06/18/17 06/19/17 06/19/17 18:59 06:59 18:59 Other: Voiding Method Incontinent # Voids 4 3 # Bowel Movements 0 0 - Exam Head normocephalic Neck supple Lungs a few coarse breath sounds bilaterally Heart regular rate and rhythm S1-S2, no rub or gallop Abdomen is soft nontender nondistended positive bowel sounds no hepatosplenomegaly Extremities no edema Neuro confused - Labs CBC & Chem 7: 06/19/17 08:32 06/19/17 08:32 Labs: Abnormal Lab Results - Last 24 Hours (Table) 06/19/17 06/19/17 Range/Units 08:32 08:32 RBC 3.03 L (3.80-5.40) m/uL Hgb 8.1 L (11.4-16.0) gm/dL Hct 27.4 L (34.0-46.0) % MCHC 29.7 L (31.0-37.0) g/dL RDW 16.9 H (11.5-15.5) % Lymphocytes # 0.3 L (1.0-4.8) k/uL Chloride 112 H (98-107) mmol/L Carbon Dioxide 19 L (22-30) mmol/L BUN 20 H (7-17) mg/dL Glucose 117 H (74-99) mg/dL Total Protein 5.8 L (6.3-8.2) g/dL Albumin 3.0 L (3.5-5.0) g/dL Microbiology - Last 24 Hours (Table) 06/17/17 23:25 Blood Culture - Preliminary Blood No Growth after 24 hours 06/18/17 18:10 Urine Culture - Preliminary Urine,Catheterized Assessment and Plan Assessment: 1. Acute metabolic encephalopathy with altered mental status present on admission. Likely secondary to UTI. Neurology consult pending. Patient has been seen by psychiatry and appreciate their recommendations 2. UTI patient started on Rocephin. Urine culture pending 3. Multiple falls with a right clavicle fracture. Patient seen by orthopedics they have ordered a sling. No surgical intervention warranted 4. Acute on chronic kidney disease: Stage III. Creatinine 1.4 on admission. Resolved. We'll resume patient's oral Lasix. Decrease IV fluids to 50. Patient still having fevers 5. Cough with low-grade fever. Check chest x-ray. Influenza screen negative. Check blood culture 6. History of recurrent C. diff. No evidence of diarrhea. Patient maintained on Flagyl 7. Chronic atrial fibrillation continue Eliquis I performed an examination of the patient and discussed their management with the physician Supervisor Scenic Arts. I have reviewed the Physician Supervisor Scenic [employer]'s notes and agree with the documented findings and plan of care
--- NOTE | 2017-06-19 15:17 | XR ---
EXAMINATION TYPE: XR chest 1V portable DATE OF EXAM: 06/19/2017 COMPARISON: 06/18/2017 HISTORY: Cough and congestion TECHNIQUE: Single frontal view of the chest is obtained. FINDINGS: Bilateral lower lobe infiltrate and small effusion. Heart is prominent. No pneumothorax. M inimal perihilar interstitial changes. IMPRESSION: Stable chest x-ray demonstrating bilateral lower lobe infiltrate and tiny effusion. Mild central venous congestion in the differential diagnosis. No significant interval change.
--- NOTE | 2017-06-19 15:19 | P.PN ---
Subjective Progress Note Date: 06/19/17 Principal diagnosis: Altered mental status Is a pleasant 87-year-old female continue be evaluated by the neurology service for altered mental status. The last week or so she has developed some progressive confusion. She has also suffered a couple falls. She currently has a clavicle fracture which is been seen by orthopedics and she is in a sling. Hard to admission she was started on Xanax and Haldol, which may have contributed to her recent change in mental status. Moreover, she was found to have significant urinary tract infection. She's been started on Rocephin IV and seems to be improving. 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 She is on Flagyl for this. She has required fecal transplant couple times. It's time my exam she is resting comfortably in bed in mild distress. She is still quite confused. Psychiatric consultation has been placed they agree that this is likely an acute encephalopathy on top of her chronic dementia. Objective - Vital Signs Vital signs: Vital Signs Temp 97.7 F 06/19/17 14:36 Pulse 74 06/19/17 14:36 Resp 16 06/19/17 14:36 BP 133/70 06/19/17 14:36 Pulse Ox 93 L 06/19/17 14:36 Intake & Output 06/18/17 06/19/17 06/19/17 18:59 06:59 18:59 Other: Voiding Method Incontinent # Voids 4 3 3 # Bowel Movements 0 0 - Constitutional General appearance: Present: average body habitus, cooperative, mild distress - EENT EENT Comment(s): Bilaterally constricted pupils Eyes: Present: EOMI. Absent: abnormal pupil, ptosis ENT: Present: hard of hearing - Neck Neck: Present: normal ROM. Absent: rigidity - Respiratory Respiratory: negative: prolonged expiration, prolonged inspiration - Cardiovascular Rhythm: irregularly irregular - Gastrointestinal General gastrointestinal: Absent: distended, tenderness - Neurologic Neurologic Comment(s): She is awake and oriented to person only. Speech and language are normal. There is no facial asymmetry. There is no lateralizing weakness. She responds to light touch in mild painful sensation in bilateral upper lower extremities. No tremors or seizure-like activities are seen. - Labs CBC & Chem 7: 06/19/17 08:32 06/19/17 08:32 Labs: Abnormal Lab Results - Last 24 Hours (Table) 06/19/17 06/19/17 Range/Units 08:32 08:32 RBC 3.03 L (3.80-5.40) m/uL Hgb 8.1 L (11.4-16.0) gm/dL Hct 27.4 L (34.0-46.0) % MCHC 29.7 L (31.0-37.0) g/dL RDW 16.9 H (11.5-15.5) % Lymphocytes # 0.3 L (1.0-4.8) k/uL Chloride 112 H (98-107) mmol/L Carbon Dioxide 19 L (22-30) mmol/L BUN 20 H (7-17) mg/dL Glucose 117 H (74-99) mg/dL Total Protein 5.8 L (6.3-8.2) g/dL Albumin 3.0 L (3.5-5.0) g/dL Microbiology - Last 24 Hours (Table) 06/17/17 23:25 Blood Culture - Preliminary Blood No Growth after 24 hours 06/18/17 18:10 Urine Culture - Preliminary Urine,Catheterized Assessment and Plan (1) Acute metabolic encephalopathy Current Visit: Yes Status: Acute Code(s): G93.41 - METABOLIC ENCEPHALOPATHY SNOMED Code(s): 21126850 (2) Altered mental status Current Visit: Yes Status: Acute Code(s): R41.82 - ALTERED MENTAL STATUS, UNSPECIFIED SNOMED Code(s): 985095779 (3) Anemia Current Visit: Yes Status: Acute Code(s): D64.9 - ANEMIA, UNSPECIFIED SNOMED Code(s): 552190393 (4) Clavicle fracture Current Visit: Yes Status: Acute Code(s): S42.009A - FRACTURE OF UNSP PART OF UNSP CLAVICLE, INIT FOR CLOS FX SNOMED Code(s): 52087802 (5) UTI (urinary tract infection) Current Visit: Yes Status: Acute Code(s): N39.0 - URINARY TRACT INFECTION, SITE NOT SPECIFIED SNOMED Code(s): 74029136 (6) Atrial fibrillation with rapid ventricular response Current Visit: No Status: Chronic Code(s): I48.91 - UNSPECIFIED ATRIAL FIBRILLATION SNOMED Code(s): 865220640305531 (7) Dehydration Current Visit: No Status: Acute Code(s): E86.0 - DEHYDRATION SNOMED Code(s ): 58831746 (8) Dementia Current Visit: No Status: Chronic Code(s): F03.90 - UNSPECIFIED DEMENTIA WITHOUT BEHAVIORAL DISTURBANCE SNOMED Code(s): 14430432 Plan: This 87-year-old female with altered mental status is likely encephalopathic from multiple processes. Recommend correcting her underlying metabolic abnormalities. Treat urinary tract infection with appropriate antibiotics. May consider consult infectious disease due to her persistent Clostridium difficile enteritis. Continue neurological checks. Barring any significant abnormalities on her EEG she be cleared from a neurological standpoint. Be consulted on as-needed basis for any changes in his neurological status. I have performed a history and physical on the above patient. I have reviewed the above note, and agree.
[2017-06-19] MEDS: MORPHINE SULFATE/PF 10MG/10ML VL IVP PRN ×2 (16:13→21:22)
[2017-06-19] MEDS: traZODone HCL 100 MG TAB PO SCH (20:44)
[2017-06-20] MEDS: MORPHINE SULFATE/PF 10MG/10ML VL IVP PRN ×3 (06:24→19:48)
[2017-06-20] MEDS: ACETAMINOPHEN TAB 325 MG TAB PO PRN (06:25)
[2017-06-20] MEDS: metroNIDAZOLE 500 MG TAB PO SCH ×2 (08:57→18:26)
[2017-06-20] MEDS: CHOLESTYRAMINE (WITH SUGAR) 4 GM PACKET PO SCH ×2 (08:57→18:27)
[2017-06-20] MEDS: LISINOPRIL 20 MG TAB PO SCH (08:57)
[2017-06-20] MEDS: FERROUS SULFATE 325 MG TAB PO SCH (08:57)
[2017-06-20] MEDS: METOPROLOL TARTRATE 12.5 MG TAB PO SCH (08:57)
[2017-06-20] MEDS: CHOLECALCIFEROL 1,000 UNIT TAB PO SCH (08:57)
[2017-06-20] MEDS: APIXABAN 2.5 MG TABLET PO SCH (08:58)
[2017-06-20] MEDS: amLODIPine 2.5 MG TAB PO SCH (08:58)
[2017-06-20] MEDS: ESCITALOPRAM 10 MG TAB PO SCH (08:58)
[2017-06-20] MEDS ORDERED: FUROSEMIDE 40 MG TAB PO SCH (09:00)
[2017-06-20] MEDS ORDERED: POTASSIUM CHLORIDE ER 10 MEQ TAB.ER.PRT PO SCH (09:00)
[2017-06-20] MEDS: cefTRIAXone IN SWFI 1,000 MG/10 ML SYRINGE IVP SCH (09:31)
[2017-06-20 09:56] LABS: Anisocytosis Slight; Basophils % (A) 0 %; Eosinophils # (A) 0.1 k/uL (0-0.7); Eosinophils % (A) 2 %; HCT 24.8 % (34.0-46.0); HGB 7.8 gm/dL (11.4-16.0); Hypochromasia Moderate; Lymphocytes # (A) 0.5 k/uL (1.0-4.8); Lymphocytes % (A) 6 %; MCH 27.6 pg (25.0-35.0); MCHC 31.3 g/dL (31.0-37.0); MCV 88.2 fL (80.0-100.0); Mean Platelet Volume 7.2; Monocytes # (A) 0.9 k/uL (0-1.0); Monocytes % (A) 12 %; Neutrophils # (A) 6.2 k/uL (1.3-7.7); Neutrophils % (A) 78 %; Platelet Count 253 k/uL (150-450); RBC 2.81 m/uL (3.80-5.40); RDW 16.3 % (11.5-15.5)
[2017-06-20 10:19] LABS: Albumin 2.7 g/dL (3.5-5.0); Calcium 8.8 mg/dL (8.4-10.2); Potassium 4.5 mmol/L (3.5-5.1); Total Bilirubin 0.3 mg/dL (0.2-1.3); Total Protein 5.4 g/dL (6.3-8.2)
[2017-06-20] MEDS: SODIUM CHLORIDE 0.9% 1,000 ML IV SCH ×3 (12:59→17:42)
--- NOTE | 2017-06-20 13:56 | P.PN ---
Subjective Progress Note Date: 06/20/17 Patient is a pleasant 87-year-old female who presented to [facility] emergency department for change in mental status. Symptoms have progressed over the past week or more. Patient has had several falls. Patient was recently started on Xanax and Haldol. Patient has been more emotional lately. Patient was drowsy. Family received a call round 8: 00 stating that patient had a fall. Patient has been leaning towards the right. Patient reportedly complained of right shoulder discomfort. Patient is a poor historian. Son-in-law in the room provided some of the history, history also obtained from chart review and senior care records. Patient was evaluated in emergency room she had evidence of distal right clavicle fracture, pelvic x-ray did not reveal any evidence of fractures. 06/19/2017 patient is still confused. She does have a significant cough. Had a low-grade temp of 100.5. White count normal. Chest x-ray ordered. Influenza screen negative. No diarrhea reported 06/20/2017 patient sleeping comfortably. No events reported through the night. Patient did have another low-grade temp this morning of 100.4. Chest x-ray showed bilateral lobe infiltrate. White count normal. Hemoglobin 7.8. We'll consult infectious disease. Speech therapy also consulted for swallow evaluation concerns of possible aspiration. Patient is in no acute distress. No diarrhea reported Objective - Vital Signs Vital signs: Vital Signs Temp 100.4 F H 06/20/17 06:31 Pulse 64 06/20/17 08:38 Resp 16 06/20/17 06:31 BP 152/70 06/20/17 08:38 Pulse Ox 92 L 06/20/17 06:31 Intake & Output 06/19/17 06/20/17 06/20/17 18:59 06:59 18:59 Other: Voiding Method Incontinent Incontinent Incontinent # Voids 3 2 - Exam Head normocephalic Neck supple Lungs a few coarse breath sounds bilaterally Heart regular rate and rhythm S1-S2, no rub or gallop Abdomen is soft nontender nondistended positive bowel sounds no hepatosplenomegaly Extremities no edema Neuro sleeping comfortably no evidence of distress - Labs CBC & Chem 7: 06/20/17 08:59 06/20/17 08:59 Labs: Abnormal Lab Results - Last 24 Hours (Table) 06/20/17 06/20/17 Range/Units 08:59 08:59 RBC 2.81 L (3.80-5.40) m/uL Hgb 7.8 L (11.4-16.0) gm/dL Hct 24.8 L (34.0-46.0) % RDW 16.3 H (11.5-15.5) % Lymphocytes # 0.5 L (1.0-4.8) k/uL Chloride 110 H (98-107) mmol/L BUN 18 H (7-17) mg/dL Total Protein 5.4 L (6.3-8.2) g/dL Albumin 2.7 L (3.5-5.0) g/dL Microbiology - Last 24 Hours (Table) 06/19/17 09:33 Blood Culture - Preliminary Blood No Growth after 24 hours 06/17/17 23:25 Blood Culture - Preliminary Blood No Growth after 48 hours 06/18/17 18:10 Urine Culture - Final Urine,Catheterized Assessment and Plan Assessment: 1. Acute metabolic encephalopathy with altered mental status present on admission. Likely secondary to UTI and pneumonia. Neurology consult pending. Patient has been seen by psychiatry and appreciate their recommendations 2. UTI patient started on Rocephin. Urine culture showing no growth 3. Multiple falls with a right clavicle fracture. Patient seen by orthopedics they have ordered a sling. No surgical intervention warranted 4. Acute on chronic kidney disease: Stage III. Creatinine 1.4 on admission. Resolved. We'll resume patient's oral Lasix. Decrease IV fluids to 50. Patient still having fevers 5. Bacterial pneumonia with Bilateral lobe infiltrates noted on chest x-ray. Infectious disease consulted. Speech therapy consulted for swallow evaluation due to concerns of possible aspiration 6. History of recurrent C. diff. No evidence of diarrhea. Patient maintained on Flagyl 7. Chronic atrial fibrillation continue Eliquis 8. 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 Hemoglobin is 7.8. Checking iron studies. Check stool for occult blood I performed an examination of the patient and discussed their management with the physician Housing Quality Standard Inspector. I have reviewed the Physician Housing Quality Standard Inspector's notes and agree with the documented findings and plan of care
[2017-06-20 16:05] VITALS: BP 108/62; PULSE 124; RESP 20; TEMP 98.4
[2017-06-20 18:41] LABS: Iron Saturation 2.08 (12.00-45.00)
[2017-06-20 20:32] LABS: Glucose,Whole Blood 184 mg/dL (75-99)
--- NOTE | 2017-06-26 15:19 | P.DS ---
Providers Date of admission: 06/19/17 16:52 Expected date of discharge: 06/20/17 Attending physician: Manny Goldman Consults: 06/18/17 01:57 Consult Physician Routine Consulting Provider: Rafa Taylor Consult Reason/Comments: clavicle fracture Do you want consulting provider notified?: Yes 06/18/17 11:59 Consult Physician Routine Consulting Provider: Oliver Vázquez Consult Reason/Comments: mental status changes Do you want consulting provider notified?: Yes 06/18/17 12:40 Consult Physician Routine Consulting Provider: Roldan Hand Consult Reason/Comments: AMS Do you want consulting provider notified?: Already Contacted 06/20/17 13:50 Consult Physician Routine Consulting Provider: Charles Beck Consult Reason/Comments: fever, pneumonia Do you want consulting provider notified?: Yes Primary care physician: Manny Goldman [facility] Course: Discharge diagnosis 1. Acute metabolic encephalopathy with altered mental status present on admission. Likely secondary to UTI and pneumonia. 2. UTI patient started on Rocephin. Urine culture showing no growth 3. Multiple falls with a right clavicle fracture. Patient seen by orthopedics they have ordered a sling. No surgical intervention warranted 4. Acute on chronic kidney disease: Stage III. Creatinine 1.4 on admission. Resolved. We'll resume patient's oral Lasix. Decrease IV fluids to 50. Patient still having fevers 5. Bacterial pneumonia with Bilateral lobe infiltrates noted on chest x-ray. Infectious disease consulted. Speech therapy consulted for swallow evaluation due to concerns of possible aspiration 6. History of recurrent C. diff. No evidence of diarrhea. Patient maintained on Flagyl 7. Chronic atrial fibrillation continue Eliquis 8. 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 Hemoglobin is 7.8. 9. Dementia Hospital course Patient is a pleasant 87-year-old female who presented to [facility] emergency department for change in mental status. Symptoms have progressed over the past week or more. Patient has had several falls. Patient was recently started on Xanax and Haldol. Patient has been more emotional lately. Patient was drowsy. Family received a call round 8: 00 stating that patient had a fall. Patient has been leaning towards the right. Patient reportedly complained of right shoulder discomfort. Patient is a poor historian. Son-in-law in the room provided some of the history, history also obtained from chart review and [facility] records. Patient was evaluated in emergency room she had evidence of distal right clavicle fracture, pelvic x-ray did not reveal any evidence of fractures. 06/19/2017 patient is still confused. She does have a significant cough. Had a low-grade temp of 100.5. White count normal. Chest x-ray ordered. Influenza screen negative. No diarrhea reported 06/20/2017 patient sleeping comfortably. No events reported through the night. Patient did have another low-grade temp this morning of 100.4. Chest x-ray showed bilateral lobe infiltrate. White count normal. Hemoglobin 7.8. We'll consult infectious disease. Speech therapy also consulted for swallow evaluation concerns of possible aspiration. Patient is in no acute distress. No diarrhea reported Patient's overall condition continued to worsen. She again is starting to have low-grade temps chest x-ray now showing bilateral infiltrate. Infectious disease was consulted. Speech therapy was going to evaluate patient for possible aspiration. However, patient's overall condition is poor and guarded. Family requested that patient be placed on hospice. Patient therefore will be discharged to [facility] hospice inpatient I performed an examination of the patient and discussed their management with the physician Head Up Operator Helper. I have reviewed the Physician Head Up Operator Helper's notes and agree with the documented findings and plan of care Patient Condition at Discharge: Poor Plan - Discharge Summary New Discharge Prescriptions: No Action Ferrous Sulfate [Feosol] 325 mg PO BID Cholecalciferol [Vitamin D3] 2,000 unit PO DAILY Escitalopram [Lexapro] 10 mg PO DAILY Apixaban [Eliquis] 2.5 mg PO BID Metoprolol Tartrate 12.5 mg PO BID Lisinopril [Prinivil] 20 mg PO BID L.acidoph,Paracasei, B.lactis [Probiotic] 1 cap PO DAILY Acetaminophen Tab [Tylenol] 650 mg PO Q6HR PRN tab PRN Reason: Fever and/ or Pain 1-5 ALPRAZolam [Xanax] 0.25 mg PO HS PRN PRN Reason: Anxiety amLODIPine [Norvasc] 5 mg PO BID Cranberry Fruit Concentrate [Cranberry] 450 mg PO DAILY Furosemide [Lasix] 40 mg PO DAILY Haloperidol [Haldol] 1 mg PO Q4H PRN PRN Reason: Agitation Potassium Chloride [K-Tab ER] 10 meq PO DAILY Discharge Medication List Ferrous Sulfate [Feosol] 325 mg PO BID 05/03/14 [History] Cholecalciferol [Vitamin D3] 2,000 unit PO DAILY 05/04/14 [History] Apixaban [Eliquis] 2.5 mg PO BID 03/21/15 [History] Escitalopram [Lexapro] 10 mg PO DAILY 03/21/15 [History] Metoprolol Tartrate 12.5 mg PO BID 03/21/15 [History] L.acidoph,Paracasei, B.lactis [Probiotic] 1 cap PO DAILY 02/11/17 [History] Lisinopril [Prinivil] 20 mg PO BID 02/11/17 [History] Acetaminophen Tab [Tylenol] 650 mg PO Q6HR PRN tab 04/05/17 [Rx] ALPRAZolam [Xanax] 0.25 mg PO HS PRN 06/18/17 [History] Cranberry Fruit Concentrate [Cranberry] 450 mg PO DAILY 06/18/17 [History] Furosemide [Lasix] 40 mg PO DAILY 06/18/17 [History] Haloperidol [Haldol] 1 mg PO Q4H PRN 06/18/17 [History] Potassium Chloride [K-Tab ER] 10 meq PO DAILY 06/18/17 [History] amLODIPine [Norvasc] 5 mg PO BID 06/18/17 [History] Follow up Appointment(s)/Referral(s): Rafa Taylro DO [Doctor of Osteopathic Medicine] - 2 Weeks Manny Goldman MD [Primary Care Provider] - 1-2 days Patient Instructions/Handouts: Dehydration (DC), Urinary Tract Infection in Women (DC) Activity/Diet/Wound Care/Special Instructions: Orthopedic discharge instructions: 1. Utilize arm sling on the right upper extremity 2. Avoid excess use in the right upper extremity 3. [facility] at [facility] [address] Taylor for recheck and x-rays Discharge Disposition: DISCH TO [facility]
== END 2017-06-20 20:30 | disposition hospice, inpatient (51) | DRG 193 ==
LOC: EC 23:12 → INTOOBSV 06-18 01:11 → 4MS4W 06-18 01:11 → OBSVTOIN 06-19 16:52
PROVIDERS: ADMIT Internal Medicine; ATTEND Internal Medicine
DX: J15.9 Unspecified bacterial pneumonia (principal); G93.41 Metabolic encephalopathy; N17.9 Acute kidney failure, unspecified; A04.71 Enterocolitis due to Clostridium difficile, recurrent; Z94.89 Other transplanted organ and tissue status; I48.2 Chronic atrial fibrillation; D64.9 Anemia, unspecified; E86.0 Dehydration; F03.90 Unspecified dementia, unspecified severity, without behavioral disturbance, psychotic disturbance, mood disturbance, and anxiety; N39.0 Urinary tract infection, site not specified; S42.031A Displaced fracture of lateral end of right clavicle, initial encounter for closed fracture; F40.240 Claustrophobia; I12.9 Hypertensive chronic kidney disease with stage 1 through stage 4 chronic kidney disease, or unspecified chronic kidney disease; N18.3 Chronic kidney disease, stage 3 (moderate); R29.6 Repeated falls; W19.XXXA Unspecified fall, initial encounter; Y92.009 Unspecified place in unspecified non-institutional (private) residence as the place of occurrence of the external cause; Z79.01 Long term (current) use of anticoagulants; Z79.899 Other long term (current) drug therapy; Z82.49 Family history of ischemic heart disease and other diseases of the circulatory system; Z87.440 Personal history of urinary (tract) infections; Z88.5 Allergy status to narcotic agent
CPT/HCPCS: 36415; 70450; 71045; 72125; 72170; 80053; 80306; 81001; 82550; 82553; 82728; 83540; 83550; 84484; 85025; 85610; 85730; 87040; 87086; 87502; 93005; 96374; 96375; 99285

== ENCOUNTER 2017-06-20 20:35 | Inpatient (IN) | payer MEDICAID ==
[2017-06-20] MEDS ORDERED: ACETAMINOPHEN SUPPOSITORY 650 MG SUPP RECTAL PRN (21:11)
[2017-06-20] MEDS ORDERED: BISACODYL 10 MG SUPP RECTAL PRN (21:13)
[2017-06-20] MEDS ORDERED: ONDANSETRON 4 MG/2 ML VIAL IVP PRN (21:14)
[2017-06-20] MEDS ORDERED: MORPHINE SULFATE/PF 10MG/10ML VL IVP PRN (21:15)
[2017-06-20] MEDS ORDERED: SCOPOLAMINE 1.5MG/72HR PATCH TRANSDERM SCH (21:15)
[2017-06-20] MEDS ORDERED: ATROPINE OPHTH SOLN 1% 5ML BTL SUBLINGUAL SCH (21:30)
[2017-06-20] MEDS ORDERED: ATROPINE OPHTH SOLN 1% 5ML BTL SUBLINGUAL PRN (21:34)
[2017-06-20] MEDS: LORazepam 2 MG/ML INJ IV PRN (21:44)
[2017-06-21] MEDS: LORazepam 2 MG/ML INJ IV PRN ×3 (05:35→15:14)
[2017-06-21 08:50] VITALS: BP 123/74; TEMP 98.9
--- NOTE | 2017-06-21 12:04 | P.HPIM ---
History of Present Illness H&P Date: 06/21/17 Chief Complaint: Mental status changes and agitation Elisa Li is an 87-year-old female who was admitted to [facility] medical floor through emergency room and had evidence of mental status changes urinary tract infection, bilateral lower lobe infiltrates, patient also has known history of recurrent episodes of Clostridium difficile colitis. Initially she was started on IV antibiotic, her condition continued to worsen, family meeting on 06/20/2017 with decision to change CODE STATUS to comfort care only and initiate hospice care. Patient evaluated today on the fifth floor room 578 patient is still restless and slightly agitated she is receiving morphine every 2 hours and Ativan every 2 hours case discussed with the hospice nurse and decision was made to start patient now on morphine drip. Past Medical History Past Medical History: Atrial Fibrillation, Dementia, Hypertension, Renal Disease Additional Past Medical History / Comment(s): Pt has had recurrent CDiff with fecal traansplant. IRON DEFICIENCY ANEMIA , nosebleeds, chronic renal failure, bilateral arm fractures, UTI-ECOLI(04-19-15). Cognitive changes reported per Pt' s [id number] 04-28-17 History of Any Multi-Drug Resistant Organisms: C-DIFF Date of last positivie culture/infection: 02/13/17 MDRO Source:: diarrhea Past Surgical History: No Surgical Hx Reported Additional Past Surgical History / Comment(s): previous nose surgery (skin graft from right thigh to nose r/t nosebleeds) Past Anesthesia/Blood Transfusion Reactions: No Reported Reaction Additional Past Anesthesia/Blood Transfusion Reaction / Comment(s): CLAUSTERPHOBIA Past Psychological History: No Psychological Hx Reported Additional Psychological History / Comment(s): Pt's daughter lives with her. PT HAS DEMENTIA AND DAUGHTER STATES SHE GETS" SUNDOWNERS" AND CAN BECOME A BIT COMBATATIVE AT TIMES. Pt has shower chair, toilet riser and a walker. She has no home care services-declined. Smoking Status: Never smoker Past Alcohol Use History: None Reported Past Drug Use History: None Reported - Past Family History Son(s) History Unknown: Yes Family Medical History: Myocardial Infarction ([place]) Father Family Medical History: Myocardial Infarction ([place]) Additional Family Medical History / Comment(s): Father at age 96 yrs. Mother History Unknown: Yes Family Medical History: No Reported History Additional Family Medical History / Comment(s): Mother was healthy and when she was 71 yrs. old. Medications and Allergies Home Medications Medication Instructions Recorded Confirmed Type Ferrous Sulfate [Feosol] 325 mg PO BID 05/03/14 06/20/17 History Cholecalciferol [Vitamin D3] 2,000 unit PO DAILY 05/04/14 06/20/17 History Apixaban [Eliquis] 2.5 mg PO BID 03/21/15 06/20/17 History Escitalopram [Lexapro] 10 mg PO DAILY 03/21/15 06/20/17 History Metoprolol Tartrate 12.5 mg PO BID 03/21/15 06/20/17 History L.acidoph,Paracasei, B.lactis 1 cap PO DAILY 02/11/17 06/20/17 History [Probiotic] Lisinopril [Prinivil] 20 mg PO BID 02/11/17 06/20/17 History Acetaminophen Tab [Tylenol] 650 mg PO Q6HR PRN tab 04/05/17 06/20/17 Rx ALPRAZolam [Xanax] 0.25 mg PO HS PRN 06/18/17 06/20/17 History Cranberry Fruit Concentrate 450 mg PO DAILY 06/18/17 06/20/17 History [Cranberry] Furosemide [Lasix] 40 mg PO DAILY 06/18/17 06/20/17 History Haloperidol [Haldol] 1 mg PO Q4H PRN 06/18/17 06/20/17 History Potassium Chloride [K-Tab ER] 10 meq PO DAILY 06/18/17 06/20/17 History amLODIPine [Norvasc] 5 mg PO BID 06/18/17 06/20/17 History Allergies Allergy/AdvReac Type Severity Reaction Status Date / Time codeine Allergy Unknown Verified 06/20/17 21:14 Physical Exam Vitals: Vital Signs Temp Pulse Resp BP Pulse Ox 06/21/17 08:00 122 H 20 06/21/17 07:00 98.9 F 122 H 20 123/74 94 L 06/20/17 23:00 97.1 F L 114 H 20 98/55 89 L Intake and Output 06/20/17 06/21/17 06/21/17 22:59 06:59 14:59 Other: Voiding Method Incontinent Incontinent Incontinent # Voids 1 1 Weight 75.296 kg Thrombosis Risk Factor Assmnt - Choose All That Apply Any of the Below Risk Factors Present?: Yes Each Factor Represents 1 point: Obesity (BMI >25), Swollen legs (current) Other Risk Factors: Yes Each Risk Factor Represents 2 Points: Patient confined to bed Each Risk Factor Represents 3 Points: Age 75 years or older Other congenital or acquired thrombophilia - If yes, enter type in comment: No Thrombosis Risk Factor Assessment Total Risk Factor Score: 7 Thrombosis Risk Factor Assessment Level: High Risk
[2017-06-21] MEDS: MORPHINE SULFATE (100 MG/2 ML) 100 MG in SODIUM CHLORIDE 0.9% 100 ML IV SCH (13:01)
[2017-06-21] MEDS: LORazepam 2 MG/ML INJ IV SCH ×4 (13:07→23:15)
[2017-06-22 03:42] VITALS: PULSE 78; RESP 14
[2017-06-22] MEDS: LORazepam 2 MG/ML INJ IV SCH ×5 (04:41→21:16)
[2017-06-22] MEDS: MORPHINE SULFATE (100 MG/2 ML) 100 MG in SODIUM CHLORIDE 0.9% 100 ML IV SCH ×2 (04:41→19:27)
--- NOTE | 2017-06-22 09:53 | P.PN ---
Subjective Progress Note Date: 06/22/17 Elisa Li is an 87-year-old female who was admitted to [facility] medical floor through emergency room and had evidence of mental status changes urinary tract infection, bilateral lower lobe infiltrates, patient also has known history of recurrent episodes of Clostridium difficile colitis. Initially she was started on IV antibiotic, her condition continued to worsen, family meeting on 06/20/2017 with decision to change CODE STATUS to comfort care only and initiate hospice care. Patient evaluated today on the fifth floor room 578 patient is still restless and slightly agitated she is receiving morphine every 2 hours and Ativan every 2 hours case discussed with the hospice nurse and decision was made to start patient now on morphine drip. 06/22/2017 morphine drip and increase to 8mg and she is also receiving IV Ativan. Patient is comfortable. Objective - Vital Signs Vital signs: Vital Signs Temp 98.9 F 06/21/17 07:00 Pulse 78 06/22/17 06:55 Resp 14 06/22/17 06:55 BP 123/74 06/21/17 07:00 Pulse Ox 94 L 06/22/17 03:41 Intake & Output 06/21/17 06/22/17 06/22/17 18:59 06:59 18:59 Intake Total 8.381 71.4 Balance 8.381 71.4 Intake: Intake, IV Titration 8.381 71.4 Amount Morphine Sulfate (100 mg/ 8.381 71.4 2 ml) 100 mg In Sodium Chloride 0.9% 100 ml @ 1 MG/HR 1.02 mls/hr IV . Q24H [facility] Rx#:[id number] Oral 0 Other: Voiding Method Incontinent Incontinent # Voids 2 1 - Exam Head normocephalic Neck supple Lungs clear to auscultation bilaterally no wheezing or crackles. Decreased respirations Heart regular rate and rhythm S1-S2, no rub or gallop Abdomen is soft nontender nondistended positive bowel sounds no hepatosplenomegaly Extremities no edema Neuro sleeping. No evidence of distress or grimacing Assessment and Plan Assessment: 1. Acute metabolic encephalopathy secondary to UTI and pneumonia 2. UTI 3. Bilateral bacterial pneumonia unspecified 4. Multiple falls with a right clavicle fracture 5. History of recurrent C. diff 6. Chronic atrial fibrillation 7. Dementia Patient is currently under hospice care continue with the morphine drip and IV Ativan I performed an examination of the patient and discussed their management with the physician Manager Cardiac Cath. I have reviewed the Physician Manager Cardiac Cath's notes and agree with the documented findings and plan of care
--- NOTE | 2017-06-26 15:23 | P.DS ---
Providers Date of admission: 06/20/17 20:35 Expected date of discharge: 06/22/17 Attending physician: Manny Goldman Primary care physician: Manny Goldman [facility] Course: Discharge diagnosis Preliminary cause of dementia 1. Acute metabolic encephalopathy secondary to UTI and pneumonia 2. UTI 3. Bilateral bacterial pneumonia unspecified 4. Multiple falls with a right clavicle fracture 5. History of recurrent C. diff 6. Chronic atrial fibrillation 7. Dementia Hospital course Patient is a pleasant 87-year-old female who presented to [facility] emergency department for change in mental status. Symptoms have progressed over the past week or more. Patient has had several falls. Patient was recently started on Xanax and Haldol. Patient has been more emotional lately. Patient was drowsy. Family received a call round 8: 00 stating that patient had a fall. Patient has been leaning towards the right. Patient reportedly complained of right shoulder discomfort. Patient is a poor historian. Son-in-law in the room provided some of the history, history also obtained from chart review and [facility] records. Patient was evaluated in emergency room she had evidence of distal right clavicle fracture, pelvic x-ray did not reveal any evidence of fractures. 06/19/2017 patient is still confused. She does have a significant cough. Had a low-grade temp of 100.5. White count normal. Chest x-ray ordered. Influenza screen negative. No diarrhea reported 06/20/2017 patient sleeping comfortably. No events reported through the night. Patient did have another low-grade temp this morning of 100.4. Chest x-ray showed bilateral lobe infiltrate. White count normal. Hemoglobin 7.8. We'll consult infectious disease. Speech therapy also consulted for swallow evaluation concerns of possible aspiration. Patient is in no acute distress. No diarrhea reported Patient's overall condition continued to worsen. She again is starting to have low-grade temps chest x-ray now showing bilateral infiltrate. Infectious disease was consulted. Speech therapy was going to evaluate patient for possible aspiration. However, patient's overall condition is poor and guarded. Family requested that patient be placed on hospice. Patient therefore will be discharged to [facility] hospice inpatient Elisa Li is an 87-year-old female who was admitted to [facility] medical floor through emergency room and had evidence of mental status changes urinary tract infection, bilateral lower lobe infiltrates, patient also has known history of recurrent episodes of Clostridium difficile colitis. Initially she was started on IV antibiotic, her condition continued to worsen, family meeting on 06/20/2017 with decision to change CODE STATUS to comfort care only and initiate hospice care. Patient on 06/22/2017. Please refer to chart for any further details I performed an examination of the patient and discussed their management with the physician Processing Rep. I have reviewed the Physician Processing Rep's notes and agree with the documented findings and plan of care Plan - Discharge Summary Discharge Rx Participant: No New Discharge Prescriptions: No Action Ferrous Sulfate [Feosol] 325 mg PO BID Cholecalciferol [Vitamin D3] 2,000 unit PO DAILY Escitalopram [Lexapro] 10 mg PO DAILY Apixaban [Eliquis] 2.5 mg PO BID Metoprolol Tartrate 12.5 mg PO BID Lisinopril [Prinivil] 20 mg PO BID L.acidoph,Paracasei, B.lactis [Probiotic] 1 cap PO DAILY Acetaminophen Tab [Tylenol] 650 mg PO Q6HR PRN tab PRN Reason: Fever and/ or Pain 1-5 ALPRAZolam [Xanax] 0.25 mg PO HS PRN PRN Reason: Anxiety amLODIPine [Norvasc] 5 mg PO BID Cranberry Fruit Concentrate [Cranberry] 450 mg PO DAILY Furosemide [Lasix] 40 mg PO DAILY Haloperidol [Haldol] 1 mg PO Q4H PRN PRN Reason: Agitation Potassium Chloride [K-Tab ER] 10 meq PO DAILY Discharge Medication List Ferrous Sulfate [Feosol] 325 mg PO BID 05/03/14 [History] Cholecalciferol [Vitamin D3] 2,000 unit PO DAILY 05/04/14 [History] Apixaban [Eliquis] 2.5 mg PO BID 03/21/15 [History] Escitalopram [Lexapro] 10 mg PO DAILY 03/21/15 [History] Metoprolol Tartrate 12.5 mg PO BID 03/21/15 [History] L.acidoph,Paracasei, B.lactis [Probiotic] 1 cap PO DAILY 02/11/17 [History] Lisinopril [Prinivil] 20 mg PO BID 02/11/17 [History] Acetaminophen Tab [Tylenol] 650 mg PO Q6HR PRN tab 04/05/17 [Rx] ALPRAZolam [Xanax] 0.25 mg PO HS PRN 06/18/17 [History] Cranberry Fruit Concentrate [Cranberry] 450 mg PO DAILY 06/18/17 [History] Furosemide [Lasix] 40 mg PO DAILY 06/18/17 [History] Haloperidol [Haldol] 1 mg PO Q4H PRN 06/18/17 [History] Potassium Chloride [K-Tab ER] 10 meq PO DAILY 06/18/17 [History] amLODIPine [Norvasc] 5 mg PO BID 06/18/17 [History] Discharge Disposition: - Preliminary Cause of Preliminary Cause of : dementia
== END 2017-06-22 23:40 | disposition expired | DRG 951 ==
LOC: 4MS4W 20:35 → 5ONC 22:40
PROVIDERS: ADMIT Internal Medicine; ATTEND Internal Medicine
DX: Z51.5 Encounter for palliative care (principal); J69.0 Pneumonitis due to inhalation of food and vomit; G93.41 Metabolic encephalopathy; J15.9 Unspecified bacterial pneumonia; N39.0 Urinary tract infection, site not specified; I48.2 Chronic atrial fibrillation; F03.90 Unspecified dementia, unspecified severity, without behavioral disturbance, psychotic disturbance, mood disturbance, and anxiety; S42.031A Displaced fracture of lateral end of right clavicle, initial encounter for closed fracture; R45.1 Restlessness and agitation; N18.9 Chronic kidney disease, unspecified; I12.9 Hypertensive chronic kidney disease with stage 1 through stage 4 chronic kidney disease, or unspecified chronic kidney disease; R29.6 Repeated falls; Z91.81 History of falling; Z86.19 Personal history of other infectious and parasitic diseases; Z79.01 Long term (current) use of anticoagulants; Z79.899 Other long term (current) drug therapy; Z82.49 Family history of ischemic heart disease and other diseases of the circulatory system